=== PATIENT | female | born 1975 | race Caucasian/White ===

== ENCOUNTER 2017-06-15 22:56 | Emergency (ER) | payer MEDICARE, OTHER ==
[2017-06-15 23:06] VITALS: TEMP 98.4
--- NOTE | 2017-06-15 23:15 | ED ---
General Adult HPI - General Chief complaint: Extremity Injury, Upper Stated complaint: L arm injury Time Seen by Provider: 06/15/17 23:09 Source: patient, family, RN notes reviewed Mode of arrival: ambulatory Limitations: no limitations - History of Present Illness Initial comments: Patient is a pleasant 41-year-old female presenting to the emergency department complaining of left shoulder injury. Patient had a sub-woffer fall on her left shoulder couple of hours ago. Approximately was 25 pounds. Patient complains of discomfort of the left shoulder only. Discomfort does increase with touch and movement. No other area of injury. Patient does have occasional chronic problems of her shoulder however not like this. No difficulty breathing. No head injury. - Related Data Home Medications Medication Instructions Recorded Confirmed Cyclobenzaprine [Flexeril] 10 mg PO HS 06/15/17 06/15/17 Escitalopram [Lexapro] 10 mg PO HS 06/15/17 06/15/17 Ibuprofen [Motrin] 800 mg PO Q6H PRN 06/15/17 06/15/17 Pantoprazole Sodium [Protonix] 40 mg PO HS 06/15/17 06/15/17 buPROPion HCL [Wellbutrin XL] 300 mg PO HS 06/15/17 06/15/17 Previous Rx's Medication Instructions Recorded Cyclobenzaprine [Flexeril] 10 mg PO TID PRN #12 tablet 06/16/17 Allergies Allergy/AdvReac Type Severity Reaction Status Date / Time sulfamethoxazole Allergy Nausea & Verified 06/15/17 23:22 [From Bactrim] Vomiting trimethoprim [From Bactrim] Allergy Nausea & Verified 06/15/17 23:22 Vomiting Review of Systems ROS Statement: Those systems with pertinent positive or pertinent negative responses have been documented in the HPI. ROS Other: All systems not noted in ROS Statement are negative. Constitutional: Denies: fever Eyes: Denies: eye pain ENT: Denies: ear pain Respiratory: Denies: cough Cardiovascular: Denies: chest pain Endocrine: Denies: fatigue Gastrointestinal: Denies: abdominal pain Genitourinary: Denies: urgency Musculoskeletal: Denies: back pain Skin: Denies: rash Neurological: Denies: weakness Past Medical History Past Medical History: Seizure Disorder Additional Past Medical History / Comment(s): hx petit mal with last known seizure age 18 History of Any Multi-Drug Resistant Organisms: MRSA Date of last positivie culture/infection: 2009 MDRO Source:: forehead Past Surgical History: Appendectomy, Section, Cholecystectomy Additional Past Surgical History / Comment(s): D & C, tracheotomy as a child Past Anesthesia/Blood Transfusion Reactions: No Reported Reaction Past Psychological History: Anxiety, Depression Smoking Status: Current every day smoker Past Alcohol Use History: Occasional Past Drug Use History: None Reported General Exam Limitations: no limitations General appearance: alert, in no apparent distress Head exam: Present: atraumatic Eye exam: Present: normal appearance Neck exam: Present: normal inspection. Absent: tenderness Respiratory exam: Present: normal lung sounds bilaterally Cardiovascular Exam: Present: regular rate, normal rhythm Extremities exam: Present: tenderness (Left upper shoulder and left trapezius with tenderness.), other (Slightly limited range of active motion secondary to discomfort. Distally the extremity is neurovascular intact.) Back exam: Present: normal inspection. Absent: vertebral tenderness Neurological exam: Present: alert. Absent: motor sensory deficit Psychiatric exam: Present: normal affect, normal mood Skin exam: Present: normal color Course Vital Signs 06/15/17 23:04 Temperature 98.4 F Pulse Rate 100 Respiratory 18 Rate Blood Pressure 114/57 O2 Sat by Pulse 98 Oximetry Medical Decision Making - Medical Decision Making Patient reevaluated and resting comfortably in bed. Patient does not want any pain medicine at this time. Patient is updated on results. - Radiology Data Radiology results: image reviewed (Left shoulder x-ray shows no acute process) Disposition Clinical Impression: Shoulder contusion Disposition: HOME SELF-CARE Condition: Stable Instructions: Shoulder Sprain (ED), Shoulder Pain (ED) Additional Instructions: Please follow-up with your primary care physician in the next couple days for recheck. Also consider follow-up with orthopedics, number provided. Return for arm weakness, increased pain, worsening or changing symptoms or other concerns. [id number] Motrin as needed. Prescriptions: Cyclobenzaprine [Flexeril] 10 mg PO TID PRN #12 tablet PRN Reason: Pain Referrals: Kacey Brennan MD [Primary Care Provider] - 1-2 days Hardy Jones MD [Medical Doctor] - 1-2 days
--- NOTE | 2017-06-15 23:57 | XR ---
EXAM: XR Left Shoulder Complete, 2 or More Views CLINICAL HISTORY: Reason: Pain TECHNIQUE: Two or more views of the left shoulder. COMPARISON: No relevant prior studies available. FINDINGS: Bones/joints: Unremarkable. No acute fracture. No dislocation. Soft tissues: Unremarkable. IMPRESSION: Normal left shoulder x-rays.
[2017-06-16 00:30] VITALS: BP 129/74; PULSE 90; RESP 20
== END 2017-06-16 00:30 | disposition home or self-care (01) ==
LOC: EC 22:56
DX: S40.012A Contusion of left shoulder, initial encounter (principal); F32.9 Major depressive disorder, single episode, unspecified; F41.9 Anxiety disorder, unspecified; F17.200 Nicotine dependence, unspecified, uncomplicated; Z79.899 Other long term (current) drug therapy; Z88.1 Allergy status to other antibiotic agents; W20.8XXA Other cause of strike by thrown, projected or falling object, initial encounter; Y93.89 Activity, other specified
CPT/HCPCS: 99283

== ENCOUNTER → 2018-02-04 | Outpatient (CLI) | payer MEDICARE, OTHER ==
--- NOTE | 2018-02-04 09:26 | XR ---
EXAM TYPE: LUMBAR SPINE X RAY SERIES COMPARISON: 06/06/2016 HISTORY: Mid and lower back pain TECHNIQUE: 4 views are submitted. FINDINGS: Alignment is anatomic. The pedicles are intact. The transverse processes are intact. There is no s pondylolysis or spondylolisthesis. Facet arthropathy L5-S1. Surgical clips in the gallbladder fossa. IMPRESSION: 1. Facet arthropathy L5-S1. If symptoms persist consider MRI.
--- NOTE | 2018-02-04 09:27 | XR ---
EXAMINATION TYPE: XR thoracic spine complete DATE OF EXAM: 02/04/2018 COMPARISON: 06/06/2016 HISTORY: Pain Alignment is anatomic. There is no compression deformities. Vertebral body height and disc interspa barak are maintained. Slight curvature of the spine noted. Mild hypertrophic spurring anteriorly. IMPRESSION: 1. No acute abnormality. If symptoms persist consider MRI.
== END | disposition home or self-care (01) ==
LOC: RADXRMAIN 08:59
PROVIDERS: ATTEND Internal Medicine
DX: M46.87 Other specified inflammatory spondylopathies, lumbosacral region (principal); M54.6 Pain in thoracic spine
CPT/HCPCS: 72072; 72100

== ENCOUNTER → 2019-03-25 | Outpatient (CLI) | payer MEDICARE, OTHER ==
--- NOTE | 2019-03-25 10:24 | MM ---
Reason for exam: screening (asymptomatic). Baseline mammogram. History: Took other hormone beginning at age 20. Physical Findings: Nurse did not find any significant physical abnormalities on exam. MG 3D Screening Mammo W/Cad Bilateral CC and MLO view(s) were taken. There are scattered fibroglandular densities. There is no discrete abnormality. These results were verbally communicated with the patient and result sheet given to the patient on 03/25/19. ASSESSMENT: Negative, BI-RAD 1 RECOMMENDATION: Routine screening mammogram of both breasts in 1 year.
== END | disposition home or self-care (01) ==
LOC: RADMAMWWP 08:55
PROVIDERS: ATTEND Internal Medicine
DX: Z12.31 Encounter for screening mammogram for malignant neoplasm of breast (principal)
CPT/HCPCS: 77063; 77067

== ENCOUNTER → 2019-06-12 | Outpatient (CLI) | payer MEDICARE, OTHER ==
--- NOTE | 2019-06-12 11:37 | XR ---
EXAMINATION TYPE: XR knee complete LT DATE OF EXAM: 06/12/2019 COMPARISON: None HISTORY: Knee pain TECHNIQUE: Three-view left knee FINDINGS: No acute fractures or dislocations are evident. Some tissues are normal. No joint effusion is evident. Joint spaces are preserved. IMPRESSION: 1. Normal three-view left knee. 2. Follow-up exams can be performed 7-10 days from acute trauma for continued pain
--- NOTE | 2019-06-12 11:38 | CT ---
EXAMINATION TYPE: CT chest w con DATE OF EXAM: 06/12/2019 COMPARISON: None HISTORY: Previous abnormal exam, lung nodule CT DLP: 540.6 mGycm, Automated exposure control for dose reduction was used. CONTRAST: Performed injected with 100 mL of Isovue 300. TECHNIQUE: Axial images were obtained at 5 mm thick sections. Reconstructed images are reviewed on [employer] computer in the coronal plane. FINDINGS: Portion of the thyroid visualized is normal. No suspicious lung nodules or focal infiltrates are present. Pneumatocele is in the right upper lobe. Additional pneumatoceles left lower lobe. No enlarged mediastinal or hilar adenopathy is evident. The ascending aorta diameter at the level o f the main pulmonary artery is 2.9 cm. The main pulmonary artery diameter at the bifurcation is 2.[address] sections are obtained through the upper abdomen. There is moderate fatty infiltration the liver. Prior cholecystectomy has been performed. IMPRESSIONS: 1. No acute abnormality.
== END | disposition home or self-care (01) ==
LOC: RADCTMAIN 10:33
PROVIDERS: ATTEND Internal Medicine
DX: M25.562 Pain in left knee (principal); R91.8 Other nonspecific abnormal finding of lung field
CPT/HCPCS: 73562; 71260; Q9967

== ENCOUNTER → 2019-06-30 | Outpatient (CLI) | payer MEDICARE, OTHER ==
[~2019-06-30] MED LIST: DOBUTamine DRIP for NUC MED 500 MG in DEXTROSE/WATER 1 250ML.BAG IV ONE
--- NOTE | 2019-06-30 12:05 | ECHOS ---
STRESS ECHOCARDIOGRAM DATE OF SERVICE: 06/30/2019 INDICATIONS: Chest pain. MEDICATIONS: Flexeril, Xanax, Wellbutrin, iron, pantoprazole. BASELINE HEART RATE: 109 BASELINE BLOOD PRESSURE: 119/44 MAXIMUM HEART RATE: 151 MAXIMUM BLOOD PRESSURE: 132/47 85% MPHR: 152 100% MPHR: 179 METS: MAXIMUM STAGE REACHED: TOTAL EXERCISE TIME: CLINICAL INFORMATION: Baseline rhythm is a sinus mechanism, rate of 109, minor nonspecific ST-T wave changes. Baseline blood pressure 119/44 mmHg. Patient received an infusion of dobutamine. Peak rate 151 beats per minute which is equal to 84% maximum predicted heart rate. Peak blood pressure 132/47 mmHg. Electrocardiograph monitoring revealed rare PVCs. There was no evidence of diagnostic ischemic ST deviation. Baseline echocardiogram revealed normal wall thickening and motion. At peak infusion, there was normal wall thickening and motion with no segmental wall motion abnormality. CONCLUSION: 1. Normal electrocardiographic response to dobutamine infusion. 2. Normal stress echocardiogram with no evidence of stress induced ischemia. MMODL / IJN: [id number] /
== END | disposition home or self-care (01) ==
LOC: RADNMMAIN 09:53
PROVIDERS: ATTEND Internal Medicine
DX: R07.9 Chest pain, unspecified (principal)
CPT/HCPCS: 93351; J1250

== ENCOUNTER → 2019-06-30 | Outpatient (CLI) | payer MEDICARE, OTHER | END | disposition home or self-care (01) | LOC: CPPFTMAIN 14:54 | PROVIDERS: ATTEND Internal Medicine Critical Care Medicine | DX: J98.8 Other specified respiratory disorders (principal) | CPT/HCPCS: 94060; 94726; 94729 ==

== ENCOUNTER 2020-07-05 17:25 | Inpatient (IN) | payer MEDICARE ==
[2020-07-05] MEDS ORDERED: ONDANSETRON 4 MG/2 ML VIAL IVP STA (18:02)
[2020-07-05] MEDS ORDERED: MORPHINE SULFATE 4 MG/ML SYRINGE IV STA (18:02)
[2020-07-05] MEDS ORDERED: SODIUM CHLORIDE 0.9% 1,000 ML IV STA (18:02)
--- NOTE | 2020-07-05 18:11 | ED ---
Nausea/Vomiting/Diarrhea HPI - General Chief complaint: Nausea/Vomiting/Diarrhea Stated complaint: nausea/vomiting Time Seen by Provider: 07/05/20 17:41 Source: patient, RN notes reviewed, old records reviewed Mode of arrival: wheelchair Limitations: no limitations - History of Present Illness Initial comments: This is a 42-year-old female here for evaluation patient presents today for evaluation regards to not feeling well abdominal pain nausea vomiting persistent diarrhea weight loss. No travel history no sick contacts patient admits to decreased appetite no fevers. Symptoms are going on for a few months now. Seen by primary care earlier today and presented to the emergency department for continue follow-up evaluation MD complaint: nausea, vomiting, diarrhea, abdominal pain -: month(s) Associated Abdominal Pain: Yes Location: diffuse Radiation: none Severity: moderate Severity scale (1-10): 4 Quality: aching Consistency: constant Improves with: none Worsens with: none Associated Symptoms: loss of appetite, malaise, nausea/vomiting, weakness - Related Data Home Medications Medication Instructions Recorded Confirmed Cyclobenzaprine [Flexeril] 10 mg PO HS 06/15/17 06/15/17 Escitalopram [Lexapro] 10 mg PO HS 06/15/17 06/15/17 Ibuprofen [Motrin] 800 mg PO Q6H PRN 06/15/17 06/15/17 Pantoprazole Sodium [Protonix] 40 mg PO HS 06/15/17 06/15/17 buPROPion HCL [Wellbutrin XL] 300 mg PO HS 06/15/17 06/15/17 Previous Rx's Medication Instructions Recorded Cyclobenzaprine [Flexeril] 10 mg PO TID PRN #12 tablet 06/16/17 Allergies Allergy/AdvReac Type Severity Reaction Status Date / Time sulfamethoxazole Allergy Nausea & Verified 07/05/20 17:43 [From Bactrim] Vomiting trimethoprim [From Bactrim] Allergy Nausea & Verified 07/05/20 17:43 Vomiting Review of Systems ROS Statement: Those systems with pertinent positive or pertinent negative responses have been documented in the HPI. ROS Other: All systems not noted in ROS Statement are negative. Past Medical History Past Medical History: Seizure Disorder Additional Past Medical History / Comment(s): hx petit mal with last known seizure age 18 History of Any Multi-Drug Resistant Organisms: MRSA Date of last positivie culture/infection: 2010 MDRO Source:: forehead Past Surgical History: Appendectomy, Section, Cholecystectomy Additional Past Surgical History / Comment(s): D & C, tracheotomy as a child Past Anesthesia/Blood Transfusion Reactions: No Reported Reaction Past Psychological History: Anxiety, Depression Smoking Status: Never smoker Past Alcohol Use History: Occasional Past Drug Use History: None Reported General Exam Limitations: no limitations General appearance: alert, in no apparent distress Head exam: Present: atraumatic, normocephalic, normal inspection Eye exam: Present: normal appearance, PERRL, EOMI. Absent: scleral icterus, conjunctival injection, periorbital swelling ENT exam: Present: normal exam, mucous membranes moist Neck exam: Present: normal inspection. Absent: tenderness, meningismus, lymphadenopathy Respiratory exam: Present: normal lung sounds bilaterally. Absent: respiratory distress, wheezes, rales, rhonchi, stridor Cardiovascular Exam: Present: regular rate, normal rhythm, normal heart sounds. Absent: systolic murmur, diastolic murmur, rubs, gallop, clicks GI/Abdominal exam: Present: soft, normal bowel sounds. Absent: distended, tenderness, guarding, rebound, rigid Extremities exam: Present: normal inspection, full ROM, normal capillary refill. Absent: tenderness, pedal edema, joint swelling, calf tenderness Back exam: Present: normal inspection Neurological exam: Present: alert, oriented X3, CN II-XII intact Psychiatric exam: Present: normal affect, normal mood Skin exam: Present: warm, dry, intact, normal color. Absent: rash Course Vital Signs 07/05/20 07/05/20 07/05/20 17:41 18:27 18:30 Temperature 98.4 F Pulse Rate 114 H 99 105 H Respiratory 18 17 18 Rate Blood Pressure 100/56 112/65 O2 Sat by Pulse 98 99 100 Oximetry 07/05/20 07/05/20 18:54 19:00 Temperature Pulse Rate 103 H 101 H Respiratory 18 16 Rate Blood Pressure 114/69 114/69 O2 Sat by Pulse 100 98 Oximetry - Reevaluation(s) Reevaluation #1: 07/05/20 20:28 Medical record is reviewed Reevaluation #2: 07/05/20 20:28 Patient informed results and questions answered - Consultations Consultation #1: Spoke with Dr. Contreras agrees for admission Medical Decision Making - Medical Decision Making 44 female to admit for evaluation regarding possible cause of metastatic liver disease versus underlying causes of abdominal pain with diarrhea. Patient be admitted for further evaluation management - Lab Data Result diagrams: 07/05/20 18:19 07/05/20 18:19 Lab Results 07/05/20 07/05/20 07/05/20 Range/Units 18:19 18:19 18:19 WBC 10.8 H (3.8-10.6) k/uL RBC 4.16 (3.80-5.40) m/uL Hgb 9.2 L (11.4-16.0) gm/dL Hct 31.2 L (34.0-46.0) % MCV 75.1 L (80.0-100.0) fL MCH 22.2 L (25.0-35.0) pg MCHC 29.6 L (31.0-37.0) g/dL RDW 17.0 H (11.5-15.5) % Plt Count 530 H (150-450) k/uL Neutrophils % 81 % Lymphocytes % 13 % Monocytes % 5 % Eosinophils % 1 % Basophils % 0 % Neutrophils # 8.7 H (1.3-7.7) k/uL Lymphocytes # 1.4 (1.0-4.8) k/uL Monocytes # 0.5 (0-1.0) k/uL Eosinophils # 0.1 (0-0.7) k/uL Basophils # 0.0 (0-0.2) k/uL Hypochromasia Marked Anisocytosis Slight Microcytosis Slight PT 11.7 (9.0-12.0) sec INR 1.2 H (<1.2) APTT 23.5 (22.0-30.0) sec Sodium 138 (137-145) mmol/L Potassium 3.6 (3.5-5.1) mmol/L Chloride 102 (98-107) mmol/L Carbon Dioxide 25 (22-30) mmol/L Anion Gap 11 mmol/L BUN 8 (7-17) mg/dL Creatinine 0.69 (0.52-1.04) mg/dL Est GFR (CKD-EPI)AfAm >90 (>60 ml/min/1.73 sqM) Est GFR (CKD-EPI)NonAf >90 (>60 ml/min/1.73 sqM) Glucose 179 H (74-99) mg/dL Plasma Lactic Acid Scotty (0.7-2.0) mmol/L Calcium 9.4 (8.4-10.2) mg/dL Phosphorus 3.1 (2.5-4.5) mg/dL Magnesium 1.8 (1.6-2.3) mg/dL Total Bilirubin 0.8 (0.2-1.3) mg/dL AST 103 H (14-36) U/L ALT 17 (4-34) U/L Alkaline Phosphatase 119 (38-126) U/L Creatine Kinase 22 L (30-135) U/L Troponin I (0.000-0.034) ng/mL NT-Pro-B Natriuret Pep pg/mL Total Protein 7.9 (6.3-8.2) g/dL Albumin 4.0 (3.5-5.0) g/dL TSH 1.040 (0.465-4.680) mIU/L 07/05/20 07/05/20 07/05/20 Range/Units 18:19 18:19 18:19 WBC (3.8-10.6) k/uL RBC (3.80-5.40) m/uL Hgb (11.4-16.0) gm/dL Hct (34.0-46.0) % MCV (80.0-100.0) fL MCH (25.0-35.0) pg MCHC (31.0-37.0) g/dL RDW (11.5-15.5) % Plt Count (150-450) k/uL Neutrophils % % Lymphocytes % % Monocytes % % Eosinophils % % Basophils % % Neutrophils # (1.3-7.7) k/uL Lymphocytes # (1.0-4.8) k/uL Monocytes # (0-1.0) k/uL Eosinophils # (0-0.7) k/uL Basophils # (0-0.2) k/uL Hypochromasia Anisocytosis Microcytosis PT (9.0-12.0) sec INR (<1.2) APTT (22.0-30.0) sec Sodium (137-145) mmol/L Potassium (3.5-5.1) mmol/L Chloride (98-107) mmol/L Carbon Dioxide (22-30) mmol/L Anion Gap mmol/L BUN (7-17) mg/dL Creatinine (0.52-1.04) mg/dL Est GFR (CKD-EPI)AfAm (>60 ml/min/1.73 sqM) Est GFR (CKD-EPI)NonAf (>60 ml/min/1.73 sqM) Glucose (74-99) mg/dL Plasma Lactic Acid Scotty 2.0 (0.7-2.0) mmol/L Calcium (8.4-10.2) mg/dL Phosphorus (2.5-4.5) mg/dL Magnesium (1.6-2.3) mg/dL Total Bilirubin (0.2-1.3) mg/dL AST (14-36) U/L ALT (4-34) U/L Alkaline Phosphatase (38-126) U/L Creatine Kinase (30-135) U/L Troponin I <0.012 (0.000-0.034) ng/mL NT-Pro-B Natriuret Pep 53 pg/mL Total Protein (6.3-8.2) g/dL Albumin (3.5-5.0) g/dL TSH (0.465-4.680) mIU/L - EKG Data -: EKG Interpreted by Me (EKG is sinus tach 103 OR 174 QRS 78 QTc 470) Disposition Clinical Impression: Abdominal pain, Diarrhea, Nausea & vomiting, Weight loss Disposition: ADMITTED IP TO THIS HOSP Condition: Fair Is patient prescribed a controlled substance at d/c from ED?: No Referrals: Kacey Brennan MD [Primary Care Provider] - 1-2 days
[2020-07-05 18:30] LABS: Anisocytosis Slight; Basophils % (A) 0 %; Eosinophils # (A) 0.1 k/uL (0-0.7); Eosinophils % (A) 1 %; HCT 31.2 % (34.0-46.0); HGB 9.2 gm/dL (11.4-16.0); Hypochromasia Marked; Lymphocytes # (A) 1.4 k/uL (1.0-4.8); Lymphocytes % (A) 13 %; MCH 22.2 pg (25.0-35.0); MCHC 29.6 g/dL (31.0-37.0); MCV 75.1 fL (80.0-100.0); Mean Platelet Volume 7.3; Microcytosis Slight; Monocytes # (A) 0.5 k/uL (0-1.0); Monocytes % (A) 5 %; Neutrophils # (A) 8.7 k/uL (1.3-7.7); Neutrophils % (A) 81 %; Platelet Count 530 k/uL (150-450); RBC 4.16 m/uL (3.80-5.40); WBC 10.8 k/uL (3.8-10.6)
[2020-07-05 18:43] LABS: ALT 17 U/L (4-34); AST 103 U/L (14-36); African American GFR (CKD) >90 (>60 ml/min/1.73 sqM); Alkaline Phosphatase 119 U/L (38-126); Anion Gap 11 mmol/L; Blood Urea Nitrogen 8 mg/dL (7-17); Calcium 9.4 mg/dL (8.4-10.2); Carbon Dioxide 25 mmol/L (22-30); Chloride 102 mmol/L (98-107); Creatine Kinase 22 U/L (30-135); Glucose 179 mg/dL (74-99); Magnesium 1.8 mg/dL (1.6-2.3); Non-African American GFR(CKD) >90 (>60 ml/min/1.73 sqM); Phosphorus 3.1 mg/dL (2.5-4.5); Potassium 3.6 mmol/L (3.5-5.1); Sodium 138 mmol/L (137-145); Total Bilirubin 0.8 mg/dL (0.2-1.3); Total Protein 7.9 g/dL (6.3-8.2)
[2020-07-05 18:45] LABS: INR 1.2 (<1.2); Partial Thromboplastin Time 23.5 sec (22.0-30.0); Prothrombin Time 11.7 sec (9.0-12.0)
--- NOTE | 2020-07-05 20:07 | CT ---
EXAMINATION TYPE: CT ChestAbdPelvis w con DATE OF EXAM: 07/05/2020 COMPARISON: 06/12/2019 and 01/29/2010 HISTORY: abdominal pain, nausea, vomiting, weakness CT DLP: 1811.1 mGycm Automated exposure control for dose reduction was used. CONTRAST: Performed with IV Contrast, patient injected with 100 mL of Isovue 300. The lungs are clear of infiltrate. There is no evidence of a pulmonary mass. There is no pleural effu fallon. Heart size is normal. There is no pericardial effusion. There is no mediastinal adenopathy. The re are no hilar masses. There are scattered emphysematous bullae in the lungs. There are multiple low-density masses in the liver that measure up to 5.8 cm. These are seen anterior to the sho hepatis and anterior right lobe of the liver and also the lateral right lobe of the rain er. The bile ducts are not dilated. There are clips and cholecystectomy. Spleen and pancreas appear n ormal. Pancreatic duct appears normal. Stomach appears normal. There is no adrenal mass. Kidneys show satisfactory contrast opacification. There is no hydronephrosi s. There is no retroperitoneal adenopathy. Bladder distends smoothly. Uterus is somewhat retroverted. There is no free fluid in the pelvis. There is no evidence of a pelvic mass. There is no mesenteric edema. There is no ascites. There is no free air. Appendix is not seen. There is no sign of thickened appendix. Thoracic and lumbar vertebra have normal alignment. Disc spaces are normal. There is no compression f racture. Sternum is intact. The bony pelvis is intact. Hip joints are intact. IMPRESSION: Negative CT scan of the chest. Minimal pulmonary emphysema. Low density liver lesions. The possibility of metastatic disease should be considered. These appear n ew compared to old CT scan. Follow-up recommended. No sign of a primary malignancy. Liver lesions gelacio ear to be new compared to the chest CT scan of 06/12 19.
[2020-07-05] MEDS ORDERED: SODIUM CHLORIDE 0.9% 1,000 ML IV ONE (21:00)
--- NOTE | 2020-07-05 21:46 | US ---
EXAMINATION TYPE: US transvaginal DATE OF EXAM: 07/05/2020 COMPARISON: CT CLINICAL HISTORY: weak. Pain and weakness. Hx appendectomy, 3 C-Sections. Hx miscarriage and D and C. . TECHNIQUE: Transvaginal (TV). Date of LMP: 07/03/20. EXAM MEASUREMENTS: Uterus: 9.5 x 6.3 x 4.4 cm Endometrial Stripe: 1.18 cm. Limited. Right Ovary: 3.2 x 1.9 x 1.4 cm Left Ovary: Not visualized 1. Uterus: Anteverted Appears slightly heterogenous. Hypoechoic area seen upper right uterus measu rin.7 x 0.6 x 1.2 cm. 2. Endometrium: Limited, measured at 1.18 cm. Subcentimeter anechoic area seen in cervix. 3. Right Ovary: Subcentimeter anechoic area seen. 4. Left Ovary: Not visualized. Spectral, color and waveform doppler imaging shows arterial and venous flow within the right ovary. Left ovary not visualized. 5. Bilateral Adnexa: Appear wnl. 6. Posterior cul-de-sac: Appears wnl. IMPRESSION: No adnexal mass. No evidence of ovarian torsion. No endometrial thickening. Very small intrauterine f luid collection of uncertain significance.
[2020-07-05] MEDS ORDERED: LORazepam 2 MG/ML INJ IV STA (22:47)
[2020-07-06] MEDS ORDERED: MORPHINE SULFATE 4 MG/ML SYRINGE IVP PRN
[2020-07-06] MEDS ORDERED: LORazepam 2 MG/ML INJ IV PRN
[2020-07-06 04:59] LABS: Appearance,Urine Clear (Clear); Bacteria,Urine Occasional /hpf; Bilirubin,Urine Negative (Negative); Blood,Urine Large (Negative); Color,Urine Light Red; Glucose,Urine (UA) Negative (Negative); Ketones,Urine 1+ (Negative); Leukocyte Esterase,Urine Small (Negative); Mucus,Urine Few /hpf; Nitrite,Urine Negative (Negative); PH, Urine 6.5 (5.0-8.0); Protein,Urine 1+ (Negative); RBC,Urine >182 /hpf (0-5); Squamous Epithelial Cell,Urine 2 /hpf (0-4); WBC,Urine 42 /hpf (0-5)
[2020-07-06 05:00] LABS: Specific Gravity,Urine >1.050 (1.001-1.035)
[2020-07-06] MEDS: PANTOPRAZOLE 40 MG/10 ML VIAL IVP SCH (08:49)
--- NOTE | 2020-07-06 11:09 | P.CONS ---
History of Present Illness - Reason for Consult Consult date: 07/06/20 liver lesions Requesting physician: Kacey Brennan - Chief Complaint Nausea, vomiting - History of Present Illness Mrs. Hodge is a 44-year-old female we've been asked to see in regards to liver lesions. Patient denies any history of liver disease, hepatitis, cysts. She has a history of appendectomy and cholecystectomy, colonoscopy and EGD in the past with polyp removal. She states that nausea and vomiting started in March of this year, been persistent and progressive. She has lost about 29 pounds, attributes the weight loss more with "bad taste" then the nausea and vomiting. She denies any painful swallowing, she does have some abdominal discomfort on the left side, she has fluctuating stool consistency but states that's not new for her, denies unusual color or odor. Her mother was recently diagnosed with colon cancer. Patient is also noted to macrocytic, hypochromic anemia. Patient says she's been anemic for very long time. She stopped iron supplementation secondary to financial situation. He states that her menstruation flow is variable but mostly high. She denies any other bleeding. Patient states no personal history of cancer. No fevers, chills, recent no contacts, chest pain, difficulty breathing, dysuria, hematuria or other bleeding. Review of Systems 14 point review of systems is negative except as stated in HPI Past Medical History Past Medical History: Seizure Disorder Additional Past Medical History / Comment(s): hx nikki michael with last known seizure age 18 History of Any Multi-Drug Resistant Organisms: MRSA Year Discovered:: 2009 MDRO Source:: forehead Past Surgical History: Appendectomy, Section, Cholecystectomy Additional Past Surgical History / Comment(s): D & C, tracheotomy as a child Past Anesthesia/Blood Transfusion Reactions: No Reported Reaction Past Psychological History: Anxiety, Depression Smoking Status: Former smoker Past Alcohol Use History: Occasional Past Drug Use History: None Reported Medications and Allergies Home Medications Medication Instructions Recorded Confirmed Type No Known Home Medications 07/05/20 07/05/20 History Allergies Allergy/AdvReac Type Severity Reaction Status Date / Time sulfamethoxazole Allergy Nausea & Verified 07/05/20 22:13 [From Bactrim] Vomiting trimethoprim [From Bactrim] Allergy Nausea & Verified 07/05/20 22:13 Vomiting Physical Exam Vitals: Vital Signs Temp Pulse Pulse Resp BP BP Pulse Ox 10/01/20 09:00 90 18 07/06/20 08:48 98.1 F 90 18 112/74 96 07/06/20 05:00 98.2 F 80 18 91/61 97 07/05/20 22:50 98.7 F 98 18 102/61 97 07/05/20 22:45 98 F 96 16 107/72 96 07/05/20 19:00 101 H 16 114/69 98 07/05/20 18:54 103 H 18 114/69 100 07/05/20 18:30 105 H 18 112/65 100 07/05/20 18:27 99 17 99 07/05/20 17:41 98.4 F 114 H 18 100/56 98 Intake and Output 07/05/20 07/06/20 07/06/20 22:59 06:59 14:59 Intake Total 100 Output Total 70 Balance 30 Intake: Intake, IV Titration 100 Amount Sodium Chloride 0.9% 1, 100 000 ml @ 100 mls/hr IV . Q10H ONE Rx#:[id number] Output: Emesis 70 Other: Voiding Method Toilet Toilet Weight 94.801 kg - Constitutional General appearance: cooperative, disheveled, morbidly obese, severe distress - EENT Eyes: anicteric sclerae, EOMI, poor dentition ENT: hearing grossly normal, normal oropharynx - Neck Left axillary exam caused the patient pain, did not feel like a lymph node Neck: no lymphadenopathy - Respiratory Respiratory: bilateral: CTA, diminished (Weak inspiratory effort) - Cardiovascular Rhythm: regular Heart sounds: normal: S1, S2 Abnormal Heart Sounds: no systolic murmur, no diastolic murmur, no rub, no S3 Gallop, no S4 Gallop, no click, no other leg Peripheral Edema: bilateral: None - Gastrointestinal General gastrointestinal: no absent bowel sounds, no decreased bowel sounds, no distended, no hepatomegaly, no hyperactive bowel sounds, normal bowel sounds, no organomegaly, no rigid, no scaphoid, soft, no splenomegaly, tenderness (Left mi ddle quadrant area), no umbilical hernia, no ventral hernia - Integumentary Integumentary: normal - Neurologic Neurologic: CNII-XII intact - Musculoskeletal Musculoskeletal: generalized weakness - Psychiatric Psychiatric: A&O x's 3, appropriate affect, intact judgment & insight Results CBC & Chem 7: 09/30/20 18:19 07/05/20 18:19 Labs: Abnormal Lab Results - Last 24 Hours (Table) 07/05/20 07/05/20 07/05/20 Range/Units 18:19 18:19 18:19 WBC 10.8 H (3.8-10.6) k/uL Hgb 9.2 L (11.4-16.0) gm/dL Hct 31.2 L (34.0-46.0) % MCV 75.1 L (80.0-100.0) fL MCH 22.2 L (25.0-35.0) pg MCHC 29.6 L (31.0-37.0) g/dL RDW 17.0 H (11.5-15.5) % Plt Count 530 H (150-450) k/uL Neutrophils # 8.7 H (1.3-7.7) k/uL INR 1.2 H (<1.2) Glucose 179 H (74-99) mg/dL AST 103 H (14-36) U/L Creatine Kinase 22 L (30-135) U/L Ur Specific [place] (1.001-1.035) Urine Protein (Negative) Urine Ketones (Negative) Urine Blood (Negative) Ur Leukocyte Esterase (Negative) Urine RBC (0-5) /hpf Urine WBC (0-5) /hpf Urine Bacteria (None) /hpf Urine Mucus (None) /hpf 07/06/20 Range/Units 04:41 WBC (3.8-10.6) k/uL Hgb (11.4-16.0) gm/dL Hct (34.0-46.0) % MCV (80.0-100.0) fL MCH (25.0-35.0) pg MCHC (31.0-37.0) g/dL RDW (11.5-15.5) % Plt Count (150-450) k/uL Neutrophils # (1.3-7.7) k/uL INR (<1.2) Glucose (74-99) mg/dL AST (14-36) U/L Creatine Kinase (30-135) U/L Ur Specific [place] >1.050 H (1.001-1.035) Urine Protein 1+ H (Negative) Urine Ketones 1+ H (Negative) Urine Blood Large H (Negative) Ur Leukocyte Esterase Small H (Negative) Urine RBC >182 H (0-5) /hpf Urine WBC 42 H (0-5) /hpf Urine Bacteria Occasional H (None) /hpf Urine Mucus Few H (None) /hpf CT scan - abdomen: report reviewed CT scan - chest: report reviewed CT scan - pelvis: report reviewed Assessment and Plan (1) Nausea & vomiting Narrative/Plan: Patient has had nausea and vomiting since March, persistent, progressive. She has a history of polyps. Surgery is following with her as they have performed previous endoscopy. Antiemetics ordered as needed Current Visit: Yes Status: Acute Priority: High Code(s): R11.2 - NAUSEA WITH VOMITING, UNSPECIFIED SNOMED Code(s): 29250404 (2) Microcytic hypochromic anemia Narrative/Plan: Patient states a history of iron deficiency. Anemia workup ordered. No need for transfusion at this time with a hemoglobin of 9.2. Current Visit: Yes Status: Acute Priority: High Code(s): D50.9 - IRON DEFICIENCY ANEMIA, UNSPECIFIED SNOMED Code(s): 74904798 (3) Liver lesion Narrative/Plan: Multiple liver lesions on computed tomography scan. Largest is 5.8 cm. Elevated AST and slightly elevated INR. Consult Interventional Radiology for core biopsy the same, no other target lesions or masses on imaging Current Visit: Yes Status: Acute Priority: High Code(s): K76.9 - LIVER DISEASE, UNSPECIFIED SNOMED Code(s): 468974248 (4) Abdominal pain Narrative/Plan: Patient complains of pain in the left middle quadrant, may be intestinal in nature. Her workup is ongoing at this time. Current Visit: Yes Status: Acute Priority: High Code(s): R10.9 - UNSPECIFIED ABDOMINAL PAIN SNOMED Code(s): 13476869
[2020-07-06] MEDS: ONDANSETRON 4 MG/2 ML VIAL IVP SCH ×4 (11:23→23:16)
--- NOTE | 2020-07-06 13:08 | P.HPIM ---
History of Present Illness H&P Date: 07/06/20 Maki Hodge, is a 44-year-old female who presented to [facility] emergency room with several days history of nausea vomiting and poor oral intake, she was evaluated in the emergency room, her vital examination reveals a temperature of 98.4 pulse 114 respiration 18 blood pressure 100/56 and pulse ox 98% on room air, white blood count was 10.8 hemoglobin 9.2 platelet count 530 AST was elevated at 103, patient also had evidence of urinary tract infection, computed tomography scan of the chest abdomen and pelvis done in the emergency room, revealed evidence of low density lesions in the liver raising the possibility of metastatic disease, patient does not have any known history of cancer, she was admitted to medical floor for further evaluation patient has known history of anemia, she underwent a colonoscopy in 2013 and had evidence of one polyp that was removed, recommendation was to proceed with colonoscopy in 5 years, however patient declined repeat colonoscopy last year. Patient has history of anemia she was maintained on iron supplements, she stopped taking iron supplements and multiple other medications several months ago, due to financial reasons per patient, she reports 20-30 pounds weight loss in the last 3-4 months. She stated that her mother was recently diagnosed with colon cancer. Past Medical History Past Medical History: Seizure Disorder Additional Past Medical History / Comment(s): hx nikki michael with last known seizure age 18 History of Any Multi-Drug Resistant Organisms: MRSA Date of last positivie culture/infection: 2009 MDRO Source:: forehead Past Surgical History: Appendectomy, Section, Cholecystectomy Additional Past Surgical History / Comment(s): D & C, tracheotomy as a child Past Anesthesia/Blood Transfusion Reactions: No Reported Reaction Past Psychological History: Anxiety, Depression Smoking Status: Former smoker Past Alcohol Use History: Occasional Past Drug Use History: None Reported Medications and Allergies Home Medications Medication Instructions Recorded Confirmed Type No Known Home Medications 07/05/20 07/05/20 History Allergies Allergy/AdvReac Type Severity Reaction Status Date / Time sulfamethoxazole Allergy Nausea & Verified 07/05/20 22:13 [From Bactrim] Vomiting trimethoprim [From Bactrim] Allergy Nausea & Verified 07/05/20 22:13 Vomiting Physical Exam Vitals: Vital Signs Temp Pulse Pulse Resp BP BP Pulse Ox 07/06/20 09:00 90 18 07/06/20 08:48 98.1 F 90 18 112/74 96 07/06/20 05:00 98.2 F 80 18 91/61 97 07/05/20 22:50 98.7 F 98 18 102/61 97 07/05/20 22:45 98 F 96 16 107/72 96 07/05/20 19:00 101 H 16 114/69 98 07/05/20 18:54 103 H 18 114/69 100 07/05/20 18:30 105 H 18 112/65 100 07/05/20 18:27 99 17 99 07/05/20 17:41 98.4 F 114 H 18 100/56 98 Intake and Output 07/05/20 07/06/20 07/06/20 22:59 06:59 14:59 Intake Total 100 Output Total 70 Balance 30 Intake: Intake, IV Titration 100 Amount Sodium Chloride 0.9% 1, 100 000 ml @ 100 mls/hr IV . Q10H ONE Rx#:[id number] Output: Emesis 70 Other: Voiding Method Toilet Toilet Weight 94.801 kg In general patient is alert and oriented 3 in no apparent distress HEENT head normocephalic and atraumatic Neck is supple no JVD no goiter no lymphadenopathy Chest exam reveals a few scattered crackles no wheezing Cardiac exam reveals regular heart sounds no murmurs Abdomen is soft nontender no hepatomegaly no splenomegaly bowel sounds are normal Extremity exam reveals no edema no cyanosis or clubbing Neurological examination reveals no gross focal deficits Results CBC & Chem 7: 07/05/20 18:19 07/05/20 18:19 Labs: Abnormal Lab Results - Last 24 Hours (Table) 07/05/20 07/05/20 07/05/20 Range/Units 18:19 18:19 18:19 WBC 10.8 H (3.8-10.6) k/uL Hgb 9.2 L (11.4-16.0) gm/dL Hct 31.2 L (34.0-46.0) % MCV 75.1 L (80.0-100.0) fL MCH 22.2 L (25.0-35.0) pg MCHC 29.6 L (31.0-37.0) g/dL RDW 17.0 H (11.5-15.5) % Plt Count 530 H (150-450) k/uL Neutrophils # 8.7 H (1.3-7.7) k/uL INR 1.2 H (<1.2) Glucose 179 H (74-99) mg/dL AST 103 H (14-36) U/L Creatine Kinase 22 L (30-135) U/L Ur Specific [place] (1.001-1.035) Urine Protein (Negative) Urine Ketones (Negative) Urine Blood (Negative) Ur Leukocyte Esterase (Negative) Urine RBC (0-5) /hpf Urine WBC (0-5) /hpf Urine Bacteria (None) /hpf Urine Mucus (None) /hpf 07/06/20 Range/Units 04:41 WBC (3.8-10.6) k/uL Hgb (11.4-16.0) gm/dL Hct (34.0-46.0) % MCV (80.0-100.0) fL MCH (25.0-35.0) pg MCHC (31.0-37.0) g/dL RDW (11.5-15.5) % Plt Count (150-450) k/uL Neutrophils # (1.3-7.7) k/uL INR (<1.2) Glucose (74-99) mg/dL AST (14-36) U/L Creatine Kinase (30-135) U/L Ur Specific [place] >1.050 H (1.001-1.035) Urine Protein 1+ H (Negative) Urine Ketones 1+ H (Negative) Urine Blood Large H (Negative) Ur Leukocyte Esterase Small H (Negative) Urine RBC >182 H (0-5) /hpf Urine WBC 42 H (0-5) /hpf Urine Bacteria Occasional H (None) /hpf Urine Mucus Few H (None) /hpf Microbiology - Last 24 Hours (Table) 07/06/20 04:41 Urine Culture - Preliminary Urine,Voided Thrombosis Risk Factor Assmnt - Choose All That Apply Each Factor Represents 1 point: Age 41-60 years, Obesity (BMI >25) Thrombosis Risk Factor Assessment Total Risk Factor Score: 2 Thrombosis Risk Factor Assessment Level: Low Risk Assessment and Plan Plan: 1. Episodes of nausea and vomiting and weight loss for the last several months 2. Anemia will check iron and vitamin B12 and folate studies 3. Abnormal computed tomography scan of the liver showing hypoechoic lesions. Consultation for Dr. Ibarra was initiated for possible EGD and colonoscopy, consultation for Dr. Lewis was initiated to assess need for liver biopsy. 4. Will follow during this admission for medical management will initiate Prot cee 40 mg by mouth daily and assess oral intake 5. For DVT prophylaxis we'll use SCD stockings, avoid heparin due to possible biopsy
--- NOTE | 2020-07-06 14:52 | P.GSCN ---
<Zhanna Moses - Last Filed: 07/06/20 15:18> History of Present Illness Consult date: 07/06/20 History of present illness: CHIEF COMPLAINT: Abdominal pain with nausea and vomiting HISTORY OF PRESENT ILLNESS: This is a 44-year-old female with a known history of iron deficiency anemia, appendectomy and cholecystectomy. She presented to the emergency room with complaints of abdominal pain with nausea and vomiting over the last couple months. She's had decrease in appetite. She's noted a 29 pound weight loss. She complains of epigastric abdominal pain and left lower quadrant abdominal pain that is intermittent. Her last EGD and colonoscopy were in 2013 patient had polypectomy from the sigmoid colon. And she was also have a repeat colonoscopy in 5 years. Patient also been having some diarrhea. But reports that her fluttering stool consistency is not new for her. She denies any blood in her stools. Her mother was recently diagnosed with colon cancer. Patient had computed tomography scan of the chest abdomen and pelvis completed in the ER that did note low density liver lesions. The possibility of metastatic disease should be considered. These appear new compared to old CT scan. No sign of primary malignancy. Patient has been evaluated by oncology they've ordered an MRI of the liver and consulted interventional radiology for possible biopsy. Patient denies any fever, chills or sweats. PAST MEDICAL HISTORY: See list. PAST SURGICAL HISTORY: See list. MEDICATIONS: See list. ALLERGIES: See list. SOCIAL HISTORY: No illicit drug use. REVIEW OF SYSTEMS: CONSTITUTIONAL: Denies fever or chills. HEENT: Denies blurred vision, vision changes, or eye pain. Denies hemoptysis CARDIOVASCULAR: Denies chest pain or pressure. RESPIRATORY: No shortness of breath. GASTROINTESTINAL: See HPI for pertinent findings HEMATOLOGIC: Denies bleeding disorders. GENITOURINARY: Denies any blood in urine or increased urinary frequency. SKIN: Denies pruitis. Denies rash. PHYSICAL EXAM: VITAL SIGNS: Reviewed GENERAL: Well-developed in no acute distress. HEENT: No sclera icterus. Extraocular movements grossly intact. Moist buccal mucosa. Head is atraumatic, normocephalic. No nasal drainage. ABDOMEN: Soft. Obese. Nondistended. Tenderness with palpation of the epigastric area and left lower quadrant NEUROLOGIC: Alert and oriented. Cranial nerves II through XII grossly intact. LABORATORY DATA: WBC 10.8 hemoglobin is 9.2 platelets are 532 acid 2.0 AST 103 ALT 17 IMAGING: Computed tomography scan of the chest abdomen pelvis report states negative co mputed tomography scan of the chest. Minimal pulmonary emphysema. Low-density liver lesions. The possibility of metastatic disease should be considered. These appear new compared to old computed tomography scan. Transvaginal ultrasound no adnexal mass. No evidence of ovarian torsion. No endometrial thickening. There is small intrauterine fluid ASSESSMENT: 1. Abdominal pain with nausea and vomiting 2. Multiple liver lesions noted on computed tomography scan with elevated AST 103 3. Prior history of colonoscopy with polypectomy in 2013. Patient has not had her 5 year repeat colonoscopy 4. Microcytic hypochromic anemia with known history of iron deficiency PLAN: -Agree with oncology consults and plan of care with MRI of the liver and and then possible biopsy of liver lesions -Continue IV fluids -Continue antiemetics for nausea -Further recommendations forthcoming by surgeon Physician Recreational Specialist note has been reviewed by physician. Signing provider agrees with the documented findings, assessment, and plan of care. Past Medical History Past Medical History: Seizure Disorder Additional Past Medical History / Comment(s): hx petit mal with last known seizure age 18 History of Any Multi-Drug Resistant Organisms: MRSA Year Discovered:: 2009 MDRO Source:: forehead Past Surgical History: Appendectomy, Section, Cholecystectomy Additional Past Surgical History / Comment(s): D & C, tracheotomy as a child Past Anesthesia/Blood Transfusion Reactions: No Reported Reaction Past Psychological History: Anxiety, Depression Smoking Status: Former smoker Past Alcohol Use History: Occasional Past Drug Use History: None Reported Medications and Allergies Home Medications Medication Instructions Recorded Confirmed Type No Known Home Medications 07/05/20 07/05/20 History Allergies Allergy/AdvReac Type Severity Reaction Status Date / Time sulfamethoxazole Allergy Nausea & Verified 07/05/20 22:13 [From Bactrim] Vomiting trimethoprim [From Bactrim] Allergy Nausea & Verified 07/05/20 22:13 Vomiting Surgical - Exam Vital Signs Temp Pulse Resp BP Pulse Ox 98.4 F 114 H 18 100/56 98 07/05/20 17:41 07/05/20 17:41 07/05/20 17:41 07/05/20 17:41 07/05/20 17:41 Results - Labs 07/05/20 18:19 07/05/20 18:19 Abnormal Lab Results - Last 24 Hours (Table) 07/05/20 07/05/20 07/05/20 Range/Units 18:19 18:19 18:19 WBC 10.8 H (3.8-10.6) k/uL Hgb 9.2 L (11.4-16.0) gm/dL Hct 31.2 L (34.0-46.0) % MCV 75.1 L (80.0-100.0) fL MCH 22.2 L (25.0-35.0) pg MCHC 29.6 L (31.0-37.0) g/dL RDW 17.0 H (11.5-15.5) % Plt Count 530 H (150-450) k/uL Neutrophils # 8.7 H (1.3-7.7) k/uL INR 1.2 H (<1.2) Glucose 179 H (74-99) mg/dL AST 103 H (14-36) U/L Creatine Kinase 22 L (30-135) U/L Ur Specific [place] (1.001-1.035) Urine Protein (Negative) Urine Ketones (Negative) Urine Blood (Negative) Ur Leukocyte Esterase (Negative) Urine RBC (0-5) /hpf Urine WBC (0-5) /hpf Urine Bacteria (None) /hpf Urine Mucus (None) /hpf 07/06/20 Range/Units 04:41 WBC (3.8-10.6) k/uL Hgb (11.4-16.0) gm/dL Hct (34.0-46.0) % MCV (80.0-100.0) fL MCH (25.0-35.0) pg MCHC (31.0-37.0) g/dL RDW (11.5-15.5) % Plt Count (150-450) k/uL Neutrophils # (1.3-7.7) k/uL INR (<1.2) Glucose (74-99) mg/dL AST (14-36) U/L Creatine Kinase (30-135) U/L Ur Specific [place] >1.050 H (1.001-1.035) Urine Protein 1+ H (Negative) Urine Ketones 1+ H (Negative) Urine Blood Large H (Negative) Ur Leukocyte Esterase Small H (Negative) Urine RBC >182 H (0-5) /hpf Urine WBC 42 H (0-5) /hpf Urine Bacteria Occasional H (None) /hpf Urine Mucus Few H (None) /hpf Microbiology - Last 24 Hours (Table) 07/06/20 04:41 Urine Culture - Preliminary Urine,Voided Diabetes panel 07/05/20 Range/Units 18:19 Sodium 138 (137-145) mmol/L Potassium 3.6 (3.5-5.1) mmol/L Chloride 102 (98-107) mmol/L Carbon Dioxide 25 (22-30) mmol/L BUN 8 (7-17) mg/dL Creatinine 0.69 (0.52-1.04) mg/dL Glucose 179 H (74-99) mg/dL Calcium 9.4 (8.4-10.2) mg/dL AST 103 H (14-36) U/L ALT 17 (4-34) U/L Alkaline Phosphatase 119 (38-126) U/L Total Protein 7.9 (6.3-8.2) g/dL Albumin 4.0 (3.5-5.0) g/dL Thyroid panel 07/05/20 Range/Units 18:19 TSH 1.040 (0.465-4.680) mIU/L Calcium panel 07/05/20 Range/Units 18:19 Calcium 9.4 (8.4-10.2) mg/dL Phosphorus 3.1 (2.5-4.5) mg/dL Albumin 4.0 (3.5-5.0) g/dL Pituitary panel 07/05/20 Range/Units 18:19 Sodium 138 (137-145) mmol/L Potassium 3.6 (3.5-5.1) mmol/L Chloride 102 (98-107) mmol/L Carbon Dioxide 25 (22-30) mmol/L BUN 8 (7-17) mg/dL Creatinine 0.69 (0.52-1.04) mg/dL Glucose 179 H (74-99) mg/dL Calcium 9.4 (8.4-10.2) mg/dL TSH 1.040 (0.465-4.680) mIU/L Adrenal panel 07/05/20 Range/Units 18:19 Sodium 138 (137-145) mmol/L Potassium 3.6 (3.5-5.1) mmol/L Chloride 102 (98-107) mmol/L Carbon Dioxide 25 (22-30) mmol/L BUN 8 (7-17) mg/dL Creatinine 0.69 (0.52-1.04) mg/dL Glucose 179 H (74-99) mg/dL Calcium 9.4 (8.4-10.2) mg/dL Total Bilirubin 0.8 (0.2-1.3) mg/dL AST 103 H (14-36) U/L ALT 17 (4-34) U/L Alkaline Phosphatase 119 (38-126) U/L Total Protein 7.9 (6.3-8.2) g/dL Albumin 4.0 (3.5-5.0) g/dL <Lowell Ibarra - Last Filed: 07/06/20 20:27> History of Present Illness History of present illness: As above. Patient with intractable nausea vomiting, weight loss, mild upper abdominal pain, and CAT scan showing liver masses. MRI liver report noted. May still require liver biopsy or hepatic surgery evaluation. For now we'll proceed with upper endoscopy tomorrow. Continue anti-medics and antiacid therapy. We'll follow. Surgical - Exam Vital Signs Temp Pulse Resp BP Pulse Ox 98.4 F 114 H 18 100/56 98 07/05/20 17:41 07/05/20 17:41 07/05/20 17:41 07/05/20 17:41 07/05/20 17:41 Results - Labs 07/05/20 18:19 07/05/20 18:19 Abnormal Lab Results - Last 24 Hours (Table) 07/06/20 Range/Units 04:41 Ur Specific [place] >1.050 H (1.001-1.035) Urine Protein 1+ H (Negative) Urine Ketones 1+ H (Negative) Urine Blood Large H (Negative) Ur Leukocyte Esterase Small H (Negative) Urine RBC >182 H (0-5) /hpf Urine WBC 42 H (0-5) /hpf Urine Bacteria Occasional H (None) /hpf Urine Mucus Few H (None) /hpf Microbiology - Last 24 Hours (Table) 07/06/20 12:56 Urine Culture - Preliminary Urine,Voided 07/06/20 04:41 Urine Culture - Preliminary Urine,Voided
--- NOTE | 2020-07-06 17:52 | MR ---
EXAMINATION TYPE: MR liver wo/w con DATE OF EXAM: 07/06/2020 COMPARISON: None HISTORY: Evaluate liver lesions CONTRAST: Standard multiplanar, multisequence MRI departmental protocol utilizing 9 mL intravenous Gadavist rebecca olinium contrast. There is an irregular 3 cm area of decreased signal on the out of phase images anterior to the sho hepatis. There is a similar slightly wedge-shaped area of decreased signal that measures 4.5 cm in th e anterior right lobe of the liver and a 2.5 cm x 1.5 cm area of decreased signal superior lateral ri ght lobe of the liver.. This suggests the presence of fat These areas are relatively isointense on th e in phase images. There is no enhancement. The contrast images show normal vessels traversing the le sions without mass effect. Delayed images show no enhancement. The lesions are isointense with the li patria on the T2 sequences. Lesions have slight increased signal on the T1 images. The lung bases are clear without sign of pleural effusion. Heart size is normal. There is no pericard ial effusion. Spleen is intact. There is no evidence of pancreatic mass. Stomach is intact. There is no adrenal mass. Kidneys have normal size and contour. There is satisfactory contrast opacification. There is no hydronephrosis. There is no evidence of ascites. IMPRESSION: Multiple liver lesions as above have features of focal fatty infiltration of the liver. I do not susp ect a malignant tumor. These do not have features of hemangioma or focal nodular hyperplasia..
[2020-07-07] MEDS: ONDANSETRON 4 MG/2 ML VIAL IVP SCH ×6 (02:01→23:27)
[2020-07-07 07:03] LABS: ALT 14 U/L (4-34); AST 90 U/L (14-36); African American GFR (CKD) >90 (>60 ml/min/1.73 sqM); Alkaline Phosphatase 84 U/L (38-126); Anion Gap 4 mmol/L; Blood Urea Nitrogen 6 mg/dL (7-17); Calcium 8.4 mg/dL (8.4-10.2); Carbon Dioxide 26 mmol/L (22-30); Chloride 108 mmol/L (98-107); Glucose 104 mg/dL (74-99); Non-African American GFR(CKD) >90 (>60 ml/min/1.73 sqM); Potassium 3.5 mmol/L (3.5-5.1); Sodium 138 mmol/L (137-145); Total Bilirubin 0.6 mg/dL (0.2-1.3); Total Protein 6.3 g/dL (6.3-8.2)
[2020-07-07 07:13] LABS: Anisocytosis Slight; Basophils % (A) 0 %; Eosinophils # (A) 0.2 k/uL (0-0.7); Eosinophils % (A) 3 %; HCT 25.3 % (34.0-46.0); Hypochromasia Marked; Lymphocytes # (A) 1.8 k/uL (1.0-4.8); Lymphocytes % (A) 26 %; MCHC 28.7 g/dL (31.0-37.0); MCV 76.7 fL (80.0-100.0); Mean Platelet Volume 6.5; Microcytosis Slight; Monocytes # (A) 0.4 k/uL (0-1.0); Monocytes % (A) 6 %; Neutrophils # (A) 4.5 k/uL (1.3-7.7); Neutrophils % (A) 65 %; Platelet Count 384 k/uL (150-450); RDW 16.7 % (11.5-15.5); Reticulocyte % 2.3 % (0.5-2.0)
[2020-07-07 07:15] LABS: HGB 7.3 gm/dL (11.4-16.0)
[2020-07-07] MEDS ORDERED: LACTATED RINGERS 1,000 ML IV SCH (08:00)
[2020-07-07] MEDS: PANTOPRAZOLE 40 MG/10 ML VIAL IVP SCH (09:04)
[2020-07-07 09:41] LABS: Folate, Serum 6.1 ng/mL
[2020-07-07 09:45] LABS: % Iron Saturation 2.88 (12.00-45.00)
[2020-07-07 09:53] LABS: Ferritin 10.1 ng/mL (10.0-291.0)
[2020-07-07] MEDS ORDERED: LIDOCAINE 1% INJ 10MG/ML (20 ML MDV) ONE (14:14)
[2020-07-07] MEDS ORDERED: PROPOFOL 10 MG/ML 20 ML VIAL IV ONE (14:14)
[2020-07-07] MEDS ORDERED: IV FLUID CONTINUATION 1,000 ML IV ONE (14:24)
--- NOTE | 2020-07-07 15:14 | P.PN ---
Subjective Progress Note Date: 07/07/20 Maki Hodge, is a 44-year-old female who presented to [facility] emergency room with several days history of nausea vomiting and poor oral intake, she was evaluated in the emergency room, her vital examination reveals a temperature of 98.4 pulse 114 respiration 18 blood pressure 100/56 and pulse ox 98% on room air, white blood count was 10.8 hemoglobin 9.2 platelet count 530 AST was elevated at 103, patient also had evidence of urinary tract infection, computed tomography scan of the chest abdomen and pelvis done in the emergency room, revealed evidence of low density lesions in the liver raising the possibility of metastatic disease, patient does not have any known history of cancer, she was admitted to medical floor for further evaluation patient has known history of anemia, she underwent a colonoscopy in 2013 and had evidence of one polyp that was removed, recommendation was to proceed with colonoscopy in 5 years, however patient declined repeat colonoscopy last year. Patient has history of anemia she was maintained on iron supplements, she stopped taking iron supplements and multiple other medications several months ago, due to financial reasons per patient, she reports 20-30 pounds weight loss in the last 3-4 months. She stated that her mother was recently diagnosed with colon cancer. On 07/07/2020 patient was seen and examined on the medical floor she is alert and oriented 3 in no apparent distress hemoglobin is down to 7.3 patient is scheduled for EGD by Dr. allan today otherwise patient is still complaining of nausea and poor oral intake there is no fever or chills no headache or dizziness no chest pain no shortness of breath no cough no vomiting no abdominal pain no diarrhea and no urinary symptoms Objective - Vital Signs Vital signs: Vital Signs Temp 98 F 07/07/20 08:07 Pulse 87 07/07/20 08:07 Resp 16 07/07/20 08:07 BP 100/68 07/07/20 08:07 Pulse Ox 95 07/07/20 08:07 Intake & Output 07/06/20 07/07/20 07/07/20 18:59 06:59 18:59 Intake Total 100 50 Output Total 250 Balance 100 -200 Intake: Oral 100 50 Output: Urine 200 Emesis 50 Other: Voiding Method Toilet Toilet # Voids 3 0 # Emeses 2 - Exam In general patient is alert and oriented 3 in no apparent distress HEENT head normocephalic and atraumatic Neck is supple no JVD no goiter no lymphadenopathy Chest exam reveals a few scattered crackles no wheezing Cardiac exam reveals regular heart sounds no murmurs Abdomen is soft nontender no hepatomegaly no splenomegaly bowel sounds are normal Extremity exam reveals no edema no cyanosis or clubbing Neurological examination reveals no gross focal deficits - Labs CBC & Chem 7: 07/07/20 06:17 07/07/20 06:17 Labs: Abnormal Lab Results - Last 24 Hours (Table) 07/07/20 07/07/20 Range/Units 06:17 06:17 RBC 3.30 L (3.80-5.40) m/uL Hgb 7.3 L D (11.4-16.0) gm/dL Hct 25.3 L (34.0-46.0) % MCV 76.7 L (80.0-100.0) fL MCH 22.0 L (25.0-35.0) pg MCHC 28.7 L (31.0-37.0) g/dL RDW 16.7 H (11.5-15.5) % Retic Count 2.3 H (0.5-2.0) % Chloride 108 H (98-107) mmol/L BUN 6 L (7-17) mg/dL Glucose 104 H (74-99) mg/dL AST 90 H (14-36) U/L Albumin 3.0 L (3.5-5.0) g/dL Microbiology - Last 24 Hours (Table) 07/06/20 12:56 Urine Culture - Preliminary Urine,Voided 07/06/20 04:41 Urine Culture - Preliminary Urine,Voided Assessment and Plan Plan: 1. Episodes of nausea and vomiting and weight loss for the last several months 2. Anemia will check iron and vitamin B12 and folate studies 3. Abnormal computed tomography scan of the liver showing hypoechoic lesions. Consultation for Dr. Ibarra was initiated for possible EGD and colonoscopy, consultation for Dr. Lewis was initiated to assess need for liver biopsy. 4. Will follow during this admission for medical management will initiate Protonix 40 mg by mouth daily and assess oral intake 5. For DVT prophylaxis we'll use SCD stockings, avoid heparin due to possible biopsy
[2020-07-07] MEDS: SODIUM CHLORIDE 0.9% 1,000 ML IV SCH (15:29)
--- NOTE | 2020-07-07 15:43 | P.PCN ---
Date of Procedure: 07/07/20 Procedure(s) Performed: Preoperative Dx: Intractable vomiting, weight loss, epigastric pain Postoperative Dx: Gastritis, distal esophagitis Procedure: EGD with Bx Anesthesia: Sedation Endoscopist: Dr. Ibarra Specimens: Antrum, GE junction Endoscopic Procedure: The patient was on the endoscopy table in the left decubitus position. The Olympus gastroscope was inserted into the oropharynx and passed under direct visualization to the region of the third portion of the duodenum. From that point the scope was slowly withdrawn inspecting all surfaces carefully. There were no neoplastic inflammatory or polypoid lesions throughout the duodenum. The pylorus was widely patent. The stomach was carefully inspected. There was mild to moderate gastritis present. A biopsy of the antrum took place to rule out H. pylori. Retroflexion revealed a normal hiatus. The esophagus was then carefully examined. There were inflammatory changes circumferentially just at and just above the Z line. Length of inflammatory changes less than 1 cm. Biopsies of the GE junction took place. No nodularity or atypical tissues to suggest malignancy. The remainder the esophagus appeared normal. were no neoplastic inflammatory or polypoid lesions throughout the visualized esophagus. The patient was then taken to the recovery room in stable condition per anesthesia guidelines. Recommendations: Increase antiacid therapy. Add Carafate. Spoke with Dr. Escobar. We'll proceed with colonoscopy Friday.
[2020-07-07] MEDS: SUCRALFATE 1 GM TAB PO SCH (16:56)
--- NOTE | 2020-07-07 17:41 | P.PN ---
Subjective Progress Note Date: 07/07/20 Principal diagnosis: New Liver Lesions MRI was reviewed and felt to be fatty, non-malignant lesions. Hemangioma protocol did not identify lesions as hemangiomas. Her hemoglobin is 7.3 today. Her iron studies do represent evidence of Iron deficiency anemia. Undergoing EGD today. Objective - Vital Signs Vital signs: Vital Signs Temp 98 F 07/07/20 08:07 Pulse 87 07/07/20 08:07 Resp 16 07/07/20 09:00 BP 100/68 07/07/20 08:07 Pulse Ox 95 07/07/20 08:07 Intake & Output 07/06/20 07/07/20 07/07/20 18:59 06:59 18:59 Intake Total 100 50 Output Total 250 75 Balance 100 -200 -75 Intake: Oral 100 50 Output: Urine 200 75 Emesis 50 Other: Voiding Method Toilet Toilet Toilet # Voids 3 0 # Emeses 2 - Exam - Constitutional General appearance: cooperative, disheveled, morbidly obese, severe distress - EENT Eyes: anicteric sclerae, EOMI, poor dentition ENT: hearing grossly normal, normal oropharynx - Neck Left axillary exam caused the patient pain, did not feel like a lymph node Neck: no lymphadenopathy - Respiratory Respiratory: bilateral: CTA, diminished (Weak inspiratory effort) - Cardiovascular Rhythm: regular Heart sounds: normal: S1, S2 Abnormal Heart Sounds: no systolic murmur, no diastolic murmur, no rub, no S3 Gallop, no S4 Gallop, no click, no other leg Peripheral Edema: bilateral: None - Gastrointestinal General gastrointestinal: no absent bowel sounds, no decreased bowel sounds, no distended, no hepatomegaly, no hyperactive bowel sounds, normal bowel sounds, no organomegaly, no rigid, no scaphoid, soft, no splenomegaly, tenderness (Left middle quadrant area), no umbilical hernia, no ventral hernia - Integumentary Integumentary: normal - Neurologic Neurologic: CNII-XII intact - Musculoskeletal Musculoskeletal: generalized weakness - Psychiatric Psychiatric: A&O x's 3, appropriate affect, intact judgment & insight - Labs CBC & Chem 7: 07/07/20 06:17 07/07/20 06:17 Labs: Abnormal Lab Results - Last 24 Hours (Table) 07/07/20 07/07/20 07/07/20 Range/Units 06:17 06:17 06:17 RBC 3.30 L (3.80-5.40) m/uL Hgb 7.3 L D (11.4-16.0) gm/dL Hct 25.3 L (34.0-46.0) % MCV 76.7 L (80.0-100.0) fL MCH 22.0 L (25.0-35.0) pg MCHC 28.7 L (31.0-37.0) g/dL RDW 16.7 H (11.5-15.5) % Retic Count 2.3 H (0.5-2.0) % Chloride 108 H (98-107) mmol/L BUN 6 L (7-17) mg/dL Glucose 104 H (74-99) mg/dL Iron 9 L (50-170) ug/dL % Saturation 2.88 L (12.00-45.00) AST 90 H (14-36) U/L Albumin 3.0 L (3.5-5.0) g/dL Microbiology - Last 24 Hours (Table) 07/06/20 04:41 Urine Culture - Preliminary Urine,Voided Gram Neg Bacilli 07/06/20 12:56 Urine Culture - Preliminary Urine,Voided Assessment and Plan Plan: CT scan - abdomen: report reviewed CT scan - chest: report reviewed CT scan - pelvis: report reviewed Assessment and Plan: New Findings of Liver Lesions: - Multiple liver lesions on computed tomography scan. Largest is 5.8 cm. - Elevated AST - MRI of the liver performed and felt lesions consistent with fatty lesions, not likely malignant findings Microcytic Anrmia: - Chronic history of Iron Deficiency, Likely from heavy menses. - GI work-up to assess for other (Mother recently diagnosed with Colon Cancer) - Iron deficiency anemia is noted in anemia work-up, hold off on Parental Iron secondary to positive UTI - Can follow-up in office once infection is resolved for parental iron - Hemoglobin 7.3 today (drop from 9.3) UTI - Positive Culture Gram Negative Bacilli: - IV antibiotics per primary team - May be connected with symptoms of intermittent nausea, vomiting and lower abdominal pain. ALthough Lieft middle quandrant tenderness can not be explained with this finding. Plan: - Continue with GI work-up - Plan for Iron replacement PO at this time and will assess for Parental after resolved infection - Liver Lesions fatty infiltrates per MRI. Repeat MRI in 6-12 months or per GI recommendations
[2020-07-08] MEDS: ONDANSETRON 4 MG/2 ML VIAL IVP SCH ×5 (03:09→20:39)
[2020-07-08 07:48] LABS: Anisocytosis Slight; Basophils % (A) 0 %; Eosinophils # (A) 0.1 k/uL (0-0.7); Eosinophils % (A) 2 %; HCT 25.3 % (34.0-46.0); HGB 7.4 gm/dL (11.4-16.0); Hypochromasia Marked; Lymphocytes # (A) 1.7 k/uL (1.0-4.8); Lymphocytes % (A) 27 %; MCH 22.3 pg (25.0-35.0); MCHC 29.3 g/dL (31.0-37.0); Mean Platelet Volume 7.5; Microcytosis Slight; Monocytes # (A) 0.4 k/uL (0-1.0); Monocytes % (A) 6 %; Neutrophils % (A) 64 %; Platelet Count 361 k/uL (150-450); RBC 3.33 m/uL (3.80-5.40); RDW 16.8 % (11.5-15.5); WBC 6.2 k/uL (3.8-10.6)
[2020-07-08 08:02] LABS: ALT 13 U/L (4-34); AST 67 U/L (14-36); African American GFR (CKD) >90 (>60 ml/min/1.73 sqM); Alkaline Phosphatase 82 U/L (38-126); Anion Gap 4 mmol/L; Blood Urea Nitrogen 3 mg/dL (7-17); Calcium 8.3 mg/dL (8.4-10.2); Carbon Dioxide 27 mmol/L (22-30); Chloride 107 mmol/L (98-107); Glucose 117 mg/dL (74-99); Non-African American GFR(CKD) >90 (>60 ml/min/1.73 sqM); Potassium 3.6 mmol/L (3.5-5.1); Sodium 138 mmol/L (137-145); Total Bilirubin 0.6 mg/dL (0.2-1.3); Total Protein 6.2 g/dL (6.3-8.2)
[2020-07-08] MEDS: PANTOPRAZOLE 40 MG/10 ML VIAL IVP SCH (09:22)
[2020-07-08] MEDS: SODIUM CHLORIDE 0.9% 1,000 ML IV SCH (09:24)
--- NOTE | 2020-07-08 09:24 | P.PN ---
Progress Note - Text Progress Note Date: 07/08/20 The patient has complaints of nausea. She throughout her clear liquid tray this morning. On exam vital signs are stable. Abdomen is soft. There is some mild epigastric tenderness. Acute chronic nausea. Patient is apparently scheduled for bowel prep tomorrow. This will be held if her nausea does not improve.
--- NOTE | 2020-07-08 12:04 | P.PN ---
Subjective Progress Note Date: 07/08/20 Maki Hodge, is a 44-year-old female who presented to [facility] emergency room with several days history of nausea vomiting and poor oral intake, she was evaluated in the emergency room, her vital examination reveals a temperature of 98.4 pulse 114 respiration 18 blood pressure 100/56 and pulse ox 98% on room air, white blood count was 10.8 hemoglobin 9.2 platelet count 530 AST was elevated at 103, patient also had evidence of urinary tract infection, computed tomography scan of the chest abdomen and pelvis done in the emergency room, revealed evidence of low density lesions in the liver raising the possibility of metastatic disease, patient does not have any known history of cancer, she was admitted to medical floor for further evaluation patient has known history of anemia, she underwent a colonoscopy in 2013 and had evidence of one polyp that was removed, recommendation was to proceed with colonoscopy in 5 years, however patient declined repeat colonoscopy last year. Patient has history of anemia she was maintained on iron supplements, she stopped taking iron supplements and multiple other medications several months ago, due to financial reasons per patient, she reports 20-30 pounds weight loss in the last 3-4 months. She stated that her mother was recently diagnosed with colon cancer. On 07/07/2020 patient was seen and examined on the medical floor she is alert and oriented 3 in no apparent distress hemoglobin is down to 7.3 patient is scheduled for EGD by Dr. allan today otherwise patient is still complaining of nausea and poor oral intake there is no fever or chills no headache or dizziness no chest pain no shortness of breath no cough no vomiting no abdominal pain no diarrhea and no urinary symptoms. On 07/08/2020 patient was seen and examined on the medical floor she is alert and oriented 3 she is still complaining of nausea or vomiting and abdominal discomfort hemoglobin is stable at 7.4 patient underwent EGD yesterday results noted and case was discussed with Dr. Ibarra, at this time continue with symptomatic management and proceed with colonoscopy on Friday. Objective - Vital Signs Vital signs: Vital Signs Temp 98.6 F 07/08/20 08:30 Pulse 81 07/08/20 08:30 Resp 16 07/08/20 08:30 BP 100/66 07/08/20 08:30 Pulse Ox 95 07/08/20 08:30 Intake & Output 1007/08/20 07/08/20 18:59 06:59 18:59 Intake Total 250 200 150 Output Total 75 325 50 Balance 175 -125 100 Intake: IV 250 150 Sodium Chloride 0.9% 1, 100 150 000 ml @ 50 mls/hr IV . Q20H [facility] Rx#:[id number] cefTRIAXone 1 gm In 50 Sodium Chloride 0.9% 50 ml @ 100 mls/hr IVPB Q24HR [facility] Rx#:[id number] Oral 200 Output: Urine 75 275 Urine/Stool Mix 50 Emesis 50 Other: Voiding Method Toilet Toilet Toilet # Voids 1 1 # Emeses 1 - Exam In general patient is alert and oriented 3 in no apparent distress HEENT head normocephalic and atraumatic Neck is supple no JVD no goiter no lymphadenopathy Chest exam reveals a few scattered crackles no wheezing Cardiac exam reveals regular heart sounds no murmurs Abdomen is soft nontender no hepatomegaly no splenomegaly bowel sounds are normal Extremity exam reveals no edema no cyanosis or clubbing Neurological examination reveals no gross focal deficits - Labs CBC & Chem 7: 07/08/20 07:26 07/08/20 07:26 Labs: Abnormal Lab Results - Last 24 Hours (Table) 07/08/20 07/08/20 Range/Units 07:26 07:26 RBC 3.33 L (3.80-5.40) m/uL Hgb 7.4 L (11.4-16.0) gm/dL Hct 25.3 L (34.0-46.0) % MCV 76.0 L (80.0-100.0) fL MCH 22.3 L (25.0-35.0) pg MCHC 29.3 L (31.0-37.0) g/dL RDW 16.8 H (11.5-15.5) % BUN 3 L (7-17) mg/dL Glucose 117 H (74-99) mg/dL Calcium 8.3 L (8.4-10.2) mg/dL AST 67 H (14-36) U/L Total Protein 6.2 L (6.3-8.2) g/dL Albumin 3.0 L (3.5-5.0) g/dL Microbiology - Last 24 Hours (Table) 07/06/20 04:41 Urine Culture - Final Urine,Voided Escherichia coli 07/06/20 12:56 Urine Culture - Preliminary Urine,Voided Gram Neg Bacilli Assessment and Plan Plan: 1. Episodes of nausea and vomiting and weight loss for the last several months 2. Anemia will check iron and vitamin B12 and folate studies 3. Abnormal computed tomography scan of the liver showing hypoechoic lesions. Consultation for Dr. Ibarra was initiated for possible EGD and colonoscopy, consultation for Dr. Lewis was initiated to assess need for liver biopsy. 4. Will follow during this admission for medical management will initiate Protonix 40 mg by mouth daily and assess oral intake 5. For DVT prophylaxis we'll use SCD stockings, avoid heparin due to possible biopsy
[2020-07-08] MEDS: METOCLOPRAMIDE 5 MG/ML 2 ML VIAL IVP SCH ×2 (13:07→18:12)
[2020-07-08] MEDS: SUCRALFATE 1 GM TAB PO SCH ×3 (13:38→18:12)
[2020-07-09] MEDS: METOCLOPRAMIDE 5 MG/ML 2 ML VIAL IVP SCH ×4 (00:34→18:40)
[2020-07-09] MEDS: ONDANSETRON 4 MG/2 ML VIAL IVP SCH ×6 (01:50→20:49)
[2020-07-09] MEDS: SODIUM CHLORIDE 0.9% 1,000 ML IV SCH ×2 (06:32→21:41)
[2020-07-09] MEDS: SUCRALFATE 1 GM TAB PO SCH ×3 (06:32→17:31)
[2020-07-09] MEDS: PANTOPRAZOLE 40 MG/10 ML VIAL IVP SCH (08:41)
--- NOTE | 2020-07-09 09:34 | P.PN ---
Progress Note - Text Progress Note Date: 07/09/20 The patient's comments and nausea. She is scheduled for colonoscopy tomorrow. On exam vital signs are stable. Abdomen soft. Patient will attempt her bowel prep. If she has significant nausea and emesis. Her colonoscopy will be rescheduled.
--- NOTE | 2020-07-09 10:49 | P.PN ---
Subjective Progress Note Date: 07/09/20 Maki Hodge, is a 44-year-old female who presented to [facility] emergency room with several days history of nausea vomiting and poor oral intake, she was evaluated in the emergency room, her vital examination reveals a temperature of 98.4 pulse 114 respiration 18 blood pressure 100/56 and pulse ox 98% on room air, white blood count was 10.8 hemoglobin 9.2 platelet count 530 AST was elevated at 103, patient also had evidence of urinary tract infection, computed tomography scan of the chest abdomen and pelvis done in the emergency room, revealed evidence of low density lesions in the liver raising the possibility of metastatic disease, patient does not have any known history of cancer, she was admitted to medical floor for further evaluation patient has known history of anemia, she underwent a colonoscopy in 2013 and had evidence of one polyp that was removed, recommendation was to proceed with colonoscopy in 5 years, however patient declined repeat colonoscopy last year. Patient has history of anemia she was maintained on iron supplements, she stopped taking iron supplements and multiple other medications several months ago, due to financial reasons per patient, she reports 20-30 pounds weight loss in the last 3-4 months. She stated that her mother was recently diagnosed with colon cancer. On 07/07/2020 patient was seen and examined on the medical floor she is alert and oriented 3 in no apparent distress hemoglobin is down to 7.3 patient is scheduled for EGD by Dr. allan today otherwise patient is still complaining of nausea and poor oral intake there is no fever or chills no headache or dizziness no chest pain no shortness of breath no cough no vomiting no abdominal pain no diarrhea and no urinary symptoms. On 07/08/2020 patient was seen and examined on the medical floor she is alert and oriented 3 she is still complaining of nausea or vomiting and abdominal discomfort hemoglobin is stable at 7.4 patient underwent EGD yesterday results noted and case was discussed with Dr. Ibarra, at this time continue with symptomatic management and proceed with colonoscopy on Friday. On 07/09/2020 patient is alert and oriented 3 resting complained bed. Patient still having nausea throughout the night. Hemoglobin 7.4. Per surgery patient will attempt bowel prep for colonoscopy tomorrow. Patient remains on Rocephin for UTI. Patient denies chest pain or shortness of breath. Patient denies any urinary burning or frequency Objective - Vital Signs Vital signs: Vital Signs Temp 98.5 F 07/09/20 08:06 Pulse 99 07/09/20 08:06 Resp 16 07/09/20 09:00 BP 107/73 07/09/20 08:06 Pulse Ox 95 07/09/20 08:06 Intake & Output 07/08/20 07/09/20 07/09/20 18:59 06:59 18:59 Intake Total 650 Output Total 50 275 Balance 600 -275 Intake: IV 550 Sodium Chloride 0.9% 1, 550 000 ml @ 50 mls/hr IV . Q20H [facility] Rx#:[id number] Oral 100 Output: Urine 275 Urine/Stool Mix 50 Other: Voiding Method Toilet Toilet Toilet # Voids 2 1 - Exam In general patient is alert and oriented 3 in no apparent distress HEENT head normocephalic and atraumatic Neck is supple no JVD no goiter no lymphadenopathy Chest exam reveals a few scattered crackles no wheezing Cardiac exam reveals regular heart sounds no murmurs Abdomen is soft nontender no hepatomegaly no splenomegaly bowel sounds are normal Extremity exam reveals no edema no cyanosis or clubbing Neurological examination reveals no gross focal deficits - Labs CBC & Chem 7: 07/08/20 07:26 07/08/20 07:26 Labs: Microbiology - Last 24 Hours (Table) 07/06/20 12:56 Urine Culture - Final Urine,Voided Escherichia coli 07/06/20 04:41 Urine Culture - Final Urine,Voided Escherichia coli Assessment and Plan Assessment: 1. Episodes of nausea and vomiting and weight loss for the last several months. On 07/07/2020 status post EGD showing gastritis and distal esophagitis. Plans for possible colonoscopy tomorrow 07/10/2020 2. Iron deficiency Anemia patient to undergo possible colonoscopy tomorrow if able to tolerate colon prep.Hematology services are following 3. Abnormal computed tomography scan of the liver showing hypoechoic lesions. Liver MRI completed showing multiple liver lesions as above have features of focal fatty infiltration of the liver I do not suspect a malignant tumor. Oncology services are following. Per hematologyLiver lesions fatty infiltrates per MRI. Repeat MRI in 6-12 months 4. Will follow during this admission for medical management will initiate Protonix 40 mg by mouth daily and assess oral intake 5. Urinary tract infection. Urine culture showing E. coli. Patient currently on Rocephin 6. For DVT prophylaxis we'll use SCD stockings, avoid heparin due to possible biopsy I performed an examination of the patient and discussed their management with the Nurse Practitioner. I have reviewed the Nurse Practitioner's notes and agree with the documented findings and plan of care
[2020-07-09] MEDS ORDERED: PEG 3350-NA SULF,BICARB,CL/KCL 4,000 ML BOTTLE PO ONE (12:00)
[2020-07-10] MEDS: METOCLOPRAMIDE 5 MG/ML 2 ML VIAL IVP SCH ×4 (00:45→19:39)
[2020-07-10] MEDS: ONDANSETRON 4 MG/2 ML VIAL IVP SCH ×6 (00:45→21:45)
[2020-07-10] MEDS: SUCRALFATE 1 GM TAB PO SCH ×3 (07:57→19:39)
[2020-07-10 08:33] LABS: Anisocytosis Slight; Basophils % (A) 0 %; Eosinophils # (A) 0.1 k/uL (0-0.7); Eosinophils % (A) 1 %; HCT 25.4 % (34.0-46.0); HGB 7.4 gm/dL (11.4-16.0); Hypochromasia Marked; Lymphocytes # (A) 1.5 k/uL (1.0-4.8); Lymphocytes % (A) 21 %; MCHC 28.9 g/dL (31.0-37.0); MCV 76.1 fL (80.0-100.0); Mean Platelet Volume 6.5; Microcytosis Slight; Monocytes # (A) 0.4 k/uL (0-1.0); Monocytes % (A) 5 %; Neutrophils # (A) 5.2 k/uL (1.3-7.7); Neutrophils % (A) 72 %; Platelet Count 367 k/uL (150-450); RBC 3.34 m/uL (3.80-5.40); RDW 16.3 % (11.5-15.5); WBC 7.3 k/uL (3.8-10.6)
[2020-07-10 08:38] LABS: ALT 12 U/L (4-34); AST 56 U/L (14-36); African American GFR (CKD) >90 (>60 ml/min/1.73 sqM); Alkaline Phosphatase 84 U/L (38-126); Anion Gap 9 mmol/L; Blood Urea Nitrogen <2 mg/dL (7-17); Calcium 8.3 mg/dL (8.4-10.2); Carbon Dioxide 23 mmol/L (22-30); Chloride 106 mmol/L (98-107); Glucose 105 mg/dL (74-99); Non-African American GFR(CKD) >90 (>60 ml/min/1.73 sqM); Potassium 3.5 mmol/L (3.5-5.1); Sodium 138 mmol/L (137-145); Total Bilirubin 0.6 mg/dL (0.2-1.3); Total Protein 6.2 g/dL (6.3-8.2)
[2020-07-10] MEDS: PANTOPRAZOLE 40 MG/10 ML VIAL IVP SCH (09:15)
[2020-07-10] MEDS ORDERED: LIDOCAINE 1% INJ 10MG/ML (20 ML MDV) ONE (14:55)
[2020-07-10] MEDS ORDERED: IV FLUID CONTINUATION 1,000 ML IV ONE (14:55)
[2020-07-10] MEDS ORDERED: PROPOFOL 10 MG/ML 20 ML VIAL IV ONE (14:55)
--- NOTE | 2020-07-10 15:13 | P.PCN ---
Date of Procedure: 07/10/20 Procedure(s) Performed: PREOPERATIVE DIAGNOSIS: Change in bowel habits, weight loss POSTOPERATIVE DIAGNOSIS: Normal exam PROCEDURE: Colonoscopy ANESTHESIA: MAC SURGEON: Lowell Ibarra M.D. SPECIMENS: None ENDOSCOPIC PROCEDURE: The patient was placed on the endoscopy table in the left decubitus position. The Olympus colonoscope was inserted into the anus and passed under direct visualization to the base of the cecum. The appendiceal orifice was visualized. From that point the scope was slowly withdrawn inspecting all surfaces carefully. There were no neoplastic inflammatory or polypoid lesions throughout the cecum, ascending, transverse, descending, sigmoid and rectum. There was no visible diverticulosis noted. Digital rectal examination was normal. The patient was taken to the recovery room in stable condition per anesthesia guidelines. RECOMMENDATIONS: Resume diet.
--- NOTE | 2020-07-10 18:50 | P.PN ---
Subjective Progress Note Date: 07/10/20 Maki Hodge, is a 44-year-old female who presented to [facility] emergency room with several days history of nausea vomiting and poor oral intake, she was evaluated in the emergency room, her vital examination reveals a temperature of 98.4 pulse 114 respiration 18 blood pressure 100/56 and pulse ox 98% on room air, white blood count was 10.8 hemoglobin 9.2 platelet count 530 AST was elevated at 103, patient also had evidence of urinary tract infection, computed tomography scan of the chest abdomen and pelvis done in the emergency room, revealed evidence of low density lesions in the liver raising the possibility of metastatic disease, patient does not have any known history of cancer, she was admitted to medical floor for further evaluation patient has known history of anemia, she underwent a colonoscopy in 2013 and had evidence of one polyp that was removed, recommendation was to proceed with colonoscopy in 5 years, however patient declined repeat colonoscopy last year. Patient has history of anemia she was maintained on iron supplements, she stopped taking iron supplements and multiple other medications several months ago, due to financial reasons per patient, she reports 20-30 pounds weight loss in the last 3-4 months. She stated that her mother was recently diagnosed with colon cancer. On 07/07/2020 patient was seen and examined on the medical floor she is alert and oriented 3 in no apparent distress hemoglobin is down to 7.3 patient is scheduled for EGD by Dr. Costello today otherwise patient is still complaining of nausea and poor oral intake there is no fever or chills no headache or dizziness no chest pain no shortness of breath no cough no vomiting no abdominal pain no diarrhea and no urinary symptoms. On 07/08/2020 patient was seen and examined on the medical floor she is alert and oriented 3 she is still complaining of nausea or vomiting and abdominal discomfort hemoglobin is stable at 7.4 patient underwent EGD yesterday results noted and case was discussed with Dr. Ibarra, at this time continue with symptomatic management and proceed with colonoscopy on Friday. On 07/09/2020 patient is alert and oriented 3 resting complained bed. Patient still having nausea throughout the night. Hemoglobin 7.4. Per surgery patient will attempt bowel prep for colonoscopy tomorrow. Patient remains on Rocephin for UTI. Patient denies chest pain or shortness of breath. Patient denies any urinary burning or frequency On 07/10/2020 patient was seen and examined on the medical floor she is alert and oriented 3 in no apparent distress she is still complaining of nausea and vomiting otherwise she denies any complaints she had a colonoscopy today which failed to reveal any evidence of polyps inflammation or cancer at this time will advance diet as tolerated, laboratory data is significant for anemia and evidence of iron deficiency, she is unable to tolerate oral iron, will give 1 dose of IV iron today and monitor, possible discharge to home tomorrow Objective - Vital Signs Vital signs: Vital Signs Temp 98.1 F 07/10/20 15:00 Pulse 95 07/10/20 15:00 Resp 16 07/10/20 15:00 BP 103/71 07/10/20 15:00 Pulse Ox 100 07/10/20 15:00 Intake & Output 07/09/20 07/10/20 07/10/20 18:59 06:59 18:59 Intake Total 450 300 Balance 450 300 Intake: IV 450 300 Sodium Chloride 0.9% 1, 400 200 000 ml @ 50 mls/hr IV . Q20H [facility] Rx#:[id number] cefTRIAXone 1 gm In 50 Sodium Chloride 0.9% 50 ml @ 100 mls/hr IVPB Q24HR [facility] Rx#:[id number] Other: Voiding Method Toilet Toilet Toilet # Voids 1 # Bowel Movements 4 4 2 - Exam In general patient is alert and oriented 3 in no apparent distress HEENT head normocephalic and atraumatic Neck is supple no JVD no goiter no lymphadenopathy Chest exam reveals a few scattered crackles no wheezing Cardiac exam reveals regular heart sounds no murmurs Abdomen is soft nontender no hepatomegaly no splenomegaly bowel sounds are normal Extremity exam reveals no edema no cyanosis or clubbing Neurological examination reveals no gross focal deficits - Labs CBC & Chem 7: 07/10/20 07:48 07/10/20 07:48 Labs: Abnormal Lab Results - Last 24 Hours (Table) 07/10/20 07/10/20 Range/Units 07:48 07:48 RBC 3.34 L (3.80-5.40) m/uL Hgb 7.4 L (11.4-16.0) gm/dL Hct 25.4 L (34.0-46.0) % MCV 76.1 L (80.0-100.0) fL MCH 22.0 L (25.0-35.0) pg MCHC 28.9 L (31.0-37.0) g/dL RDW 16.3 H (11.5-15.5) % BUN <2 L (7-17) mg/dL Glucose 105 H (74-99) mg/dL Calcium 8.3 L (8.4-10.2) mg/dL AST 56 H (14-36) U/L Total Protein 6.2 L (6.3-8.2) g/dL Albumin 3.0 L (3.5-5.0) g/dL Assessment and Plan Plan: 1. Episodes of nausea and vomiting and weight loss for the last several months 2. Anemia will check iron and vitamin B12 and folate studies 3. Abnormal computed tomography scan of the liver showing hypoechoic lesions. Consultation for Dr. Ibarra was initiated for possible EGD and colonoscopy, consultation for Dr. Lewis was initiated to assess need for liver biopsy. 4. Will follow during this admission for medical management will initiate Protonix 40 mg by mouth daily and assess oral intake 5. For DVT prophylaxis we'll use SCD stockings, avoid heparin due to possible biopsy
[2020-07-10] MEDS ORDERED: SODIUM FERRIC GLUCONAT-SUCROSE 125 MG in SODIUM CHLORIDE 0.9% 100 ML IVPB ONE (19:00)
[2020-07-11] MEDS: ONDANSETRON 4 MG/2 ML VIAL IVP SCH ×6 (00:31→20:10)
[2020-07-11] MEDS: SODIUM CHLORIDE 0.9% 1,000 ML IV SCH ×2 (00:31→14:50)
[2020-07-11] MEDS: METOCLOPRAMIDE 5 MG/ML 2 ML VIAL IVP SCH ×4 (03:15→18:16)
[2020-07-11 06:57] LABS: Methylmalonic Acid 0.15 umol/L (<0.40)
[2020-07-11] MEDS: SUCRALFATE 1 GM TAB PO SCH ×3 (07:04→18:16)
[2020-07-11 07:30] LABS: Anisocytosis Slight; Basophils % (A) 0 %; Eosinophils # (A) 0.1 k/uL (0-0.7); Eosinophils % (A) 1 %; HCT 25.6 % (34.0-46.0); HGB 7.5 gm/dL (11.4-16.0); Hypochromasia Marked; Lymphocytes # (A) 1.6 k/uL (1.0-4.8); Lymphocytes % (A) 21 %; MCH 22.2 pg (25.0-35.0); MCHC 29.4 g/dL (31.0-37.0); MCV 75.6 fL (80.0-100.0); Mean Platelet Volume 6.6; Microcytosis Slight; Monocytes # (A) 0.4 k/uL (0-1.0); Monocytes % (A) 6 %; Neutrophils # (A) 5.3 k/uL (1.3-7.7); Neutrophils % (A) 71 %; Platelet Count 390 k/uL (150-450); RBC 3.38 m/uL (3.80-5.40); RDW 16.4 % (11.5-15.5); WBC 7.5 k/uL (3.8-10.6)
[2020-07-11 07:42] LABS: ALT 12 U/L (4-34); AST 53 U/L (14-36); African American GFR (CKD) >90 (>60 ml/min/1.73 sqM); Albumin 3.1 g/dL (3.5-5.0); Alkaline Phosphatase 84 U/L (38-126); Anion Gap 7 mmol/L; Blood Urea Nitrogen <2 mg/dL (7-17); Calcium 8.4 mg/dL (8.4-10.2); Carbon Dioxide 24 mmol/L (22-30); Chloride 106 mmol/L (98-107); Glucose 98 mg/dL (74-99); Non-African American GFR(CKD) >90 (>60 ml/min/1.73 sqM); Potassium 3.5 mmol/L (3.5-5.1); Sodium 137 mmol/L (137-145); Total Bilirubin 0.7 mg/dL (0.2-1.3); Total Protein 6.4 g/dL (6.3-8.2)
[2020-07-11] MEDS: PANTOPRAZOLE 40 MG/10 ML VIAL IVP SCH (08:24)
--- NOTE | 2020-07-11 11:40 | P.PN ---
Subjective Progress Note Date: 07/11/20 Principal diagnosis: Intractable vomiting Patient still having episodes of vomiting. Says she was not able to tolerate most of the food that was provided to her. Emesis typically occurs approximate 5 minutes post eating. Mild discomfort. Denies bloating. She is passing flat us. Objective - Vital Signs Vital signs: Vital Signs Temp 98.3 F 07/11/20 08:01 Pulse 81 07/11/20 09:00 Resp 16 07/11/20 09:00 BP 122/74 07/11/20 08:01 Pulse Ox 94 L 07/11/20 08:01 Intake & Output 07/10/20 07/11/20 07/11/20 18:59 06:59 18:59 Intake Total 300 500 240 Output Total 50 Balance 300 450 240 Intake: IV 300 400 Sodium Chloride 0.9% 1, 200 400 000 ml @ 50 mls/hr IV . Q20H [facility] Rx#:[id number] Oral 100 240 Output: Emesis 50 Other: Voiding Method Toilet Toilet Toilet # Voids 2 1 # Emeses 1 - Exam Abdomen: Soft, nontender, nondistended - Labs CBC & Chem 7: 07/11/20 06:35 07/11/20 06:35 Labs: Abnormal Lab Results - Last 24 Hours (Table) 07/07/20 07/11/20 07/11/20 Range/Units 06:17 06:35 06:35 RBC 3.38 L (3.80-5.40) m/uL Hgb 7.5 L (11.4-16.0) gm/dL Hct 25.6 L (34.0-46.0) % MCV 75.6 L (80.0-100.0) fL MCH 22.2 L (25.0-35.0) pg MCHC 29.4 L (31.0-37.0) g/dL RDW 16.4 H (11.5-15.5) % BUN <2 L (7-17) mg/dL AST 53 H (14-36) U/L Albumin 3.1 L (3.5-5.0) g/dL RBC Folate 1,297 H (280 - 791) ng/mL Assessment and Plan (1) Nausea & vomiting Narrative/Plan: 44-year-old female with intractable vomiting. We'll order a upper GI with small bowel follow-through at this time. If symptoms persist and that study is normal would recommend GI evaluation. Current Visit: Yes Status: Acute Priority: High Code(s): R11.2 - NAUSEA WITH VOMITING, UNSPECIFIED SNOMED Code(s): 09159658
--- NOTE | 2020-07-11 18:19 | P.PN ---
Subjective Progress Note Date: 07/11/20 Maki Hodge, is a 44-year-old female who presented to [facility] emergency room with several days history of nausea vomiting and poor oral intake, she was evaluated in the emergency room, her vital examination reveals a temperature of 98.4 pulse 114 respiration 18 blood pressure 100/56 and pulse ox 98% on room air, white blood count was 10.8 hemoglobin 9.2 platelet count 530 AST was elevated at 103, patient also had evidence of urinary tract infection, computed tomography scan of the chest abdomen and pelvis done in the emergency room, revealed evidence of low density lesions in the liver raising the possibility of metastatic disease, patient does not have any known history of cancer, she was admitted to medical floor for further evaluation patient has known history of anemia, she underwent a colonoscopy in 2013 and had evidence of one polyp that was removed, recommendation was to proceed with colonoscopy in 5 years, however patient declined repeat colonoscopy last year. Patient has history of anemia she was maintained on iron supplements, she stopped taking iron supplements and multiple other medications several months ago, due to financial reasons per patient, she reports 20-30 pounds weight loss in the last 3-4 months. She stated that her mother was recently diagnosed with colon cancer. On 07/07/2020 patient was seen and examined on the medical floor she is alert and oriented 3 in no apparent distress hemoglobin is down to 7.3 patient is scheduled for EGD by Dr. Chacko today otherwise patient is still complaining of nausea and poor oral intake there is no fever or chills no headache or dizziness no chest pain no shortness of breath no cough no vomiting no abdominal pain no diarrhea and no urinary symptoms. On 07/08/2020 patient was seen and examined on the medical floor she is alert and oriented 3 she is still complaining of nausea or vomiting and abdominal discomfort hemoglobin is stable at 7.4 patient underwent EGD yesterday results noted and case was discussed with Dr. Ibarra, at this time continue with symptomatic management and proceed with colonoscopy on Friday. On 07/09/2020 patient is alert and oriented 3 resting complained bed. Patient still having nausea throughout the night. Hemoglobin 7.4. Per surgery patient will attempt bowel prep for colonoscopy tomorrow. Patient remains on Rocephin for UTI. Patient denies chest pain or shortness of breath. Patient denies any urinary burning or frequency On 07/10/2020 patient was seen and examined on the medical floor she is alert and oriented 3 in no apparent distress she is still complaining of nausea and vomiting otherwise she denies any complaints she had a colonoscopy today which failed to reveal any evidence of polyps inflammation or cancer at this time will advance diet as tolerated, laboratory data is significant for anemia and evidence of iron deficiency, she is unable to tolerate oral iron, will give 1 dose of IV iron today and monitor, possible discharge to home tomorrow. On 07/11/2020 patient was seen and examined on the medical floor she is alert and oriented 3 she is complaining still of episodes of vomiting she was evaluated by Dr. chacko and plan is to proceed was upper GI series, patient is still also complaining of some abdominal tenderness, there is no fever or chills no headache or dizziness no chest pain no shortness of breath no cough no diarrhea no blood in the stools and no urinary symptoms Objective - Vital Signs Vital signs: Vital Signs Temp 98.3 F 07/11/20 08:01 Pulse 81 07/11/20 09:00 Resp 16 07/11/20 09:00 BP 122/74 07/11/20 08:01 Pulse Ox 94 L 07/11/20 08:01 Intake & Output 07/10/20 07/11/20 07/11/20 18:59 06:59 18:59 Intake Total 300 500 240 Output Total 50 Balance 300 450 240 Intake: IV 300 400 Sodium Chloride 0.9% 1, 200 400 000 ml @ 50 mls/hr IV . Q20H [facility] Rx#:[id number] Oral 100 240 Output: Emesis 50 Other: Voiding Method Toilet Toilet Toilet # Voids 2 1 # Emeses 1 - Exam In general patient is alert and oriented 3 in no apparent distress HEENT head normocephalic and atraumatic Neck is supple no JVD no goiter no lymphadenopathy Chest exam reveals a few scattered crackles no wheezing Cardiac exam reveals regular heart sounds no murmurs Abdomen is soft nontender no hepatomegaly no splenomegaly bowel sounds are normal Extremity exam reveals no edema no cyanosis or clubbing Neurological examination reveals no gross focal deficits - Labs CBC & Chem 7: 07/11/20 06:35 07/11/20 06:35 Labs: Abnormal Lab Results - Last 24 Hours (Table) 07/07/20 07/11/20 07/11/20 Range/Units 06:17 06:35 06:35 RBC 3.38 L (3.80-5.40) m/uL Hgb 7.5 L (11.4-16.0) gm/dL Hct 25.6 L (34.0-46.0) % MCV 75.6 L (80.0-100.0) fL MCH 22.2 L (25.0-35.0) pg MCHC 29.4 L (31.0-37.0) g/dL RDW 16.4 H (11.5-15.5) % BUN <2 L (7-17) mg/dL AST 53 H (14-36) U/L Albumin 3.1 L (3.5-5.0) g/dL RBC Folate 1,297 H (280 - 791) ng/mL Assessment and Plan Plan: 1. Episodes of nausea and vomiting and weight loss for the last several months 2. Anemia will check iron and vitamin B12 and folate studies 3. Abnormal computed tomography scan of the liver showing hypoechoic lesions. Consultation for Dr. Ibarra was initiated for possible EGD and colonoscopy, consultation for Dr. Lewis was initiated to assess need for liver biopsy. 4. Will follow during this admission for medical management will initiate Protonix 40 mg by mouth daily and assess oral intake 5. For DVT prophylaxis we'll use SCD stockings, will start subcu heparin at this time.
[2020-07-11] MEDS: HEPARIN SODIUM,PORCINE 5,000 UNIT/ML 1 ML VIAL SQ SCH (20:10)
[2020-07-12] MEDS: METOCLOPRAMIDE 5 MG/ML 2 ML VIAL IVP SCH ×3 (00:26→11:11)
[2020-07-12] MEDS: ONDANSETRON 4 MG/2 ML VIAL IVP SCH ×4 (00:26→11:09)
[2020-07-12 03:14] VITALS: RESP 16
[2020-07-12 07:47] LABS: Anisocytosis Slight; Basophils % (A) 0 %; Eosinophils # (A) 0.2 k/uL (0-0.7); Eosinophils % (A) 2 %; HCT 25.4 % (34.0-46.0); HGB 7.6 gm/dL (11.4-16.0); Hypochromasia Marked; Lymphocytes # (A) 1.7 k/uL (1.0-4.8); Lymphocytes % (A) 26 %; MCH 23.1 pg (25.0-35.0); MCV 77.1 fL (80.0-100.0); Mean Platelet Volume 6.7; Microcytosis Slight; Monocytes # (A) 0.5 k/uL (0-1.0); Monocytes % (A) 7 %; Neutrophils # (A) 4.3 k/uL (1.3-7.7); Neutrophils % (A) 63 %; Platelet Count 348 k/uL (150-450); RBC 3.29 m/uL (3.80-5.40); RDW 16.9 % (11.5-15.5); WBC 6.7 k/uL (3.8-10.6)
[2020-07-12] MEDS: SODIUM CHLORIDE 0.9% 1,000 ML IV SCH (07:50)
[2020-07-12] MEDS: SUCRALFATE 1 GM TAB PO SCH ×2 (07:51→11:10)
[2020-07-12 07:57] VITALS: PULSE 85; TEMP 98
[2020-07-12] MEDS: HEPARIN SODIUM,PORCINE 5,000 UNIT/ML 1 ML VIAL SQ SCH (08:00)
[2020-07-12] MEDS: PANTOPRAZOLE 40 MG/10 ML VIAL IVP SCH (08:00)
[2020-07-12 08:04] LABS: ALT 11 U/L (4-34); AST 48 U/L (14-36); African American GFR (CKD) >90 (>60 ml/min/1.73 sqM); Albumin 2.9 g/dL (3.5-5.0); Alkaline Phosphatase 78 U/L (38-126); Anion Gap 6 mmol/L; Blood Urea Nitrogen <2 mg/dL (7-17); Calcium 8.4 mg/dL (8.4-10.2); Carbon Dioxide 26 mmol/L (22-30); Chloride 106 mmol/L (98-107); Glucose 103 mg/dL (74-99); Non-African American GFR(CKD) >90 (>60 ml/min/1.73 sqM); Potassium 3.4 mmol/L (3.5-5.1); Sodium 138 mmol/L (137-145); Total Bilirubin 0.5 mg/dL (0.2-1.3); Total Protein 6.2 g/dL (6.3-8.2)
[2020-07-12] MEDS ORDERED: Potassium Replacement Protocol 1 EACH MISC MISCELLANE PRN (10:12)
--- NOTE | 2020-07-12 10:44 | FL ---
EXAMINATION TYPE: FL esophagus w sm bowel DATE OF EXAM: 07/12/2020 COMPARISON: NONE HISTORY: Intractable vomiting TECHNIQUE: A double contrast esophagram study is performed with small bowel follow through. FINDINGS: Instructor Private image of the abdomen shows no gross abnormality. Fallopian tubal ligation clips are present. Surgical clips are present in the right upper quadrant. The esophagus shows normal motility and emptying into the stomach. No evidence of hiatal hernia or s tricture noted. No significant esophageal reflux was seen during real time performance of this study. The small bowel study shows no rapid transit to the colon in less than 30 minutes. There is normal m ucosal fold pattern throughout the small bowel. There is no evidence of any stricture or filling def ect noted. The terminal ileum is unremarkable. 1 minute 47 seconds fluoroscopy time, 25 images obtained. IMPRESSION: Rapid transit to the colon..
[2020-07-12] MEDS: POTASSIUM CHLORIDE ER 20 MEQ TAB.ER PO SCH ×2 (11:09→12:19)
--- NOTE | 2020-07-12 12:27 | P.BASOAP ---
Subjective Progress Note Date: 07/12/20 Principal diagnosis: Intractable vomiting Patient apparently had a small episode of vomiting last night. Today's upper GI small bowel follow-through showed quick transit but no obstruction or mucosal lesions. Patient believes her nausea is somewhat improved. Minimal pain. Objective - Vital Signs Vital signs: Vital Signs Temp 98 F 07/12/20 07:55 Pulse 85 07/12/20 09:00 Resp 16 07/12/20 09:00 BP 88/47 07/12/20 07:55 Pulse Ox 93 L 07/12/20 07:55 Intake & Output 07/11/20 07/12/20 07/12/20 18:59 06:59 18:59 Intake Total 480 480 Output Total 25 Balance 480 455 Intake: Oral 480 480 Output: Emesis 25 Other: Voiding Method Toilet Toilet Toilet # Voids 2 2 - Exam Abdomen: Soft, nontender, nondistended - Labs CBC & Chem 7: 07/12/20 07:27 07/12/20 07:27 Labs: Abnormal Lab Results - Last 24 Hours (Table) 07/12/20 07/12/20 Range/Units 07:27 07:27 RBC 3.29 L (3.80-5.40) m/uL Hgb 7.6 L (11.4-16.0) gm/dL Hct 25.4 L (34.0-46.0) % MCV 77.1 L (80.0-100.0) fL MCH 23.1 L (25.0-35.0) pg MCHC 30.0 L (31.0-37.0) g/dL RDW 16.9 H (11.5-15.5) % Potassium 3.4 L (3.5-5.1) mmol/L BUN <2 L (7-17) mg/dL Glucose 103 H (74-99) mg/dL AST 48 H (14-36) U/L Total Protein 6.2 L (6.3-8.2) g/dL Albumin 2.9 L (3.5-5.0) g/dL Assessment/Plan (1) Nausea & vomiting Narrative/Plan: Patient overall doing better. Will advance diet as tolerated. No further intervention or diagnostics plan from my point of view. If symptoms persist recommend GI consultation. Plan: Date: 07/06/20 Initial Weight: Initial BMI: Current Weight: 94.801 kg Current BMI: Type of Surgery: Total Volume in Band: Previous Volume: Volume Removed: Volume Added: Band Size:
[2020-07-12 13:19] VITALS: BMI 38.2
--- NOTE | 2020-07-12 13:55 | P.DS ---
Providers Date of admission: 07/06/20 10:17 Expected date of discharge: 07/12/20 Attending physician: Kacey Brennan Consults: 07/05/20 21:00 Consult Physician Routine Consulting Provider: Lowell Ibarra Consult Reason/Comments: known Do you want consulting provider notified?: Yes 07/06/20 10:19 Consult Physician Routine Consulting Provider: Braulio Lewis Consult Reason/Comments: possile liver mets Do you want consulting provider notified?: Yes Primary care physician: Kacey Mika [place] [facility] Course: Discharge diagnosis 1. Episodes of nausea and vomiting and weight loss for the last several months. Status post EGD showing gastritis and distal esophagitis. Colonoscopy completed showing normal exam. Patient had upper GI series today per surgical s ervices findings suggest no gross abnormality. Discussed case with surgical services patient may be discharged home. Patient will be discharged home on Protonix Carafate and Zofran 2. Anemia will check iron and vitamin B12 and folate studies 3. Abnormal computed tomography scan of the liver showing hypoechoic lesions. Liver MRI completed showing multiple liver lesions as above features of local fatty filtration of the liver I do not suspect malignant tumor. Oncology services are following. Per hematology liver lesions fatty treated for MRI repeat MRI in 6-12 months 4. Will follow during this admission for medical management will initiate Protonix 40 mg by mouth daily and assess oral intake 5. For DVT prophylaxis we'll use SCD stockings, will start subcu heparin at this time. 6. Urinary tract infection. Patient will be DC'd on Ceftin for 7 days. Hospital course Maki Hodge, is a 44-year-old female who presented to [facility] emergency room with several days history of nausea vomiting and poor oral intake, she was evaluated in the emergency room, her vital examination reveals a temperature of 98.4 pulse 114 respiration 18 blood pressure 100/56 and pulse ox 98% on room air, white blood count was 10.8 hemoglobin 9.2 platelet count 530 AST was elevated at 103, patient also had evidence of urinary tract infection, computed tomography scan of the chest abdomen and pelvis done in the emergency room, revealed evidence of low density lesions in the liver raising the possibility of metastatic disease, patient does not have any known history of cancer, she was admitted to medical floor for further evaluation patient has known history of anemia, she underwent a colonoscopy in 2013 and had evidence of one polyp that was removed, recommendation was to proceed with colonoscopy in 5 years, however patient declined repeat colonoscopy last year. Patient has history of anemia she was maintained on iron supplements, she stopped taking iron supplements and multiple other medications several months ago, due to financial reasons per patient, she reports 20-30 pounds weight loss in the last 3-4 months. She stated that her mother was recently diagnosed with colon cancer. On 07/07/2020 patient was seen and examined on the medical floor she is alert and oriented 3 in no apparent distress hemoglobin is down to 7.3 patient is scheduled for EGD by Dr. Chacko today otherwise patient is still complaining of nausea and poor oral intake there is no fever or chills no headache or dizziness no chest pain no shortness of breath no cough no vomiting no abdominal pain no diarrhea and no urinary symptoms. On 07/08/2020 patient was seen and examined on the medical floor she is alert and oriented 3 she is still complaining of nausea or vomiting and abdominal discomfort hemoglobin is stable at 7.4 patient underwent EGD yesterday results noted and case was discussed with Dr. Ibarra, at this time continue with symptomatic management and proceed with colonoscopy on Friday. On 07/09/2020 patient is alert and oriented 3 resting complained bed. Patient still having nausea throughout the night. Hemoglobin 7.4. Per surgery patient will attempt bowel prep for colonoscopy tomorrow. Patient remains on Rocephin for UTI. Patient denies chest pain or shortness of breath. Patient denies any urinary burning or frequency On 07/10/2020 patient was seen and examined on the medical floor she is alert and oriented 3 in no apparent distress she is still complaining of nausea and vomiting otherwise she denies any complaints she had a colonoscopy today which failed to reveal any evidence of polyps inflammation or cancer at this time will advance diet as tolerated, laboratory data is significant for anemia and evidence of iron deficiency, she is unable to tolerate oral iron, will give 1 dose of IV iron today and monitor, possible discharge to home tomorrow. On 07/11/2020 patient was seen and examined on the medical floor she is alert and oriented 3 she is complaining still of episodes of vomiting she was evaluated by Dr. chacko and plan is to proceed was upper GI series, patient is still also complaining of some abdominal tenderness, there is no fever or chills no headache or dizziness no chest pain no shortness of breath no cough no diarrhea no blood in the stools and no urinary symptoms On 07/12/2020 patient is alert and oriented 3. Patient had one episode of emesis. Does reports improvement. Patient has been thoroughly worked up by surgical service including EGD and colonoscopy and upper GI series no further workup per surgical services. Patient will be discharged home on Protonix Carafate and Zofran. Patient to receive IV iron prior to discharge and will be discharged on ferrous sulfate. Patient also discharged on Ceftin for urinary tract infection. Patient to follow-up with PCP for further workup I performed an examination of the patient and discussed their management with the Nurse Practitioner. I have reviewed the Nurse Practitioner's notes and agree with the documented findings and plan of care Patient Condition at Discharge: Stable Plan - Discharge Summary Discharge Rx Participant: No New Discharge Prescriptions: New Sucralfate [Carafate] 1 gm PO AC-TID #21 tab Ferrous Sulfate [Feosol] 325 mg PO DAILY 30 Days #30 tab Pantoprazole Sodium [Protonix] 40 mg PO BID #60 tablet. Ondansetron [Zofran] 4 mg PO Q8HR PRN 14 Days #28 tab PRN Reason: Nausea Cefuroxime Axetil [Ceftin] 500 mg PO BID 7 Days #14 tab Discharge Medication List Cefuroxime Axetil [Ceftin] 500 mg PO BID 7 Days #14 tab 07/12/20 [Rx] Ferrous Sulfate [Feosol] 325 mg PO DAILY 30 Days #30 tab 07/12/20 [Rx] Ondansetron [Zofran] 4 mg PO Q8HR PRN 14 Days #28 tab 07/12/20 [Rx] Pantoprazole Sodium [Protonix] 40 mg PO BID #60 tablet. 07/12/20 [Rx] Sucralfate [Carafate] 1 gm PO AC-TID #21 tab 07/12/20 [Rx] Follow up Appointment(s)/Referral(s): Kacey Brennan MD [Primary Care Provider] - 1-2 days Patient Instructions/Handouts: Acute Abdominal Pain (DC)
[2020-07-12 14:09] VITALS: BP 96/65
[2020-07-12] MEDS ORDERED: SODIUM FERRIC GLUCONAT-SUCROSE 125 MG in SODIUM CHLORIDE 0.9% 100 ML IVPB ONE (15:00)
== END 2020-07-12 16:40 | disposition home or self-care (01) | DRG 392 ==
LOC: EC 17:25 → 4SSUR 20:59 → UNDOADMIN 20:59 → 3NCARDOBS 21:00 → OBSVTOIN 07-06 10:17
PROVIDERS: ADMIT Internal Medicine; ATTEND Internal Medicine
PROC: 0DB78ZX Excision of Stomach, Pylorus, Via Natural or Artificial Opening Endoscopic, Diagnostic (ICD-10-PCS; principal; 2020-07-07 07:30)
PROC: 0DJD8ZZ Inspection of Lower Intestinal Tract, Via Natural or Artificial Opening Endoscopic (ICD-10-PCS; principal; 2020-07-07 07:30)
DX: K29.70 Gastritis, unspecified, without bleeding (principal); N39.0 Urinary tract infection, site not specified; D50.9 Iron deficiency anemia, unspecified; D53.9 Nutritional anemia, unspecified; F32.9 Major depressive disorder, single episode, unspecified; F41.9 Anxiety disorder, unspecified; R79.1 Abnormal coagulation profile; K20.90 Esophagitis, unspecified without bleeding; Z80.0 Family history of malignant neoplasm of digestive organs; Z87.19 Personal history of other diseases of the digestive system; Z87.891 Personal history of nicotine dependence; K76.0 Fatty (change of) liver, not elsewhere classified
CPT/HCPCS: 36415; 43239; 45378; 71260; 74177; 74183; 74240; 74248; 76830; 80053; 81001; 81025; 82550; 82607; 82728; 82746; 82747; 83540; 83550; 83605; 83735; 83880; 83921; 84100; 84443; 84484; 85025; 85045; 85610; 85730; 87077; 87086; 87186; 88305; 93005; 93976; 94760; 96361; 96374; 96375; 99285

== ENCOUNTER → 2020-08-12 | Outpatient (CLI) | payer MEDICARE, OTHER ==
--- NOTE | 2020-08-13 19:05 | MR ---
EXAMINATION TYPE: MR lumbar spine wo con DATE OF EXAM: 08/12/2020 COMPARISON: CT chest abdomen pelvis 07/05/2020 HISTORY: Low back pain w/ numbness into cameron lower extremities TECHNIQUE: Multiplanar, multisequence images of the lumbar spine were acquired. Spinal alignment is normal. Vertebral body heights are preserved. Vertebral bone marrow is normal in signal. Hemangioma L5. Multilevel degenerative disc disease, as described by level below. Disc desiccation of L5-S1 Lower th oracic cord is normal in signal. Conus terminates normally at L1. Cauda equina nerve roots are normal in course and caliber. Paraspinal soft tissues are unremarkable. Visualized upper sacroiliac joints appear intact. T12-L1: No posterior disc herniation, protrusion, or bulging. No canal stenosis. Foramina are patent bilaterally. L1-L2: No posterior disc herniation, protrusion, or bulging. No canal stenosis. Foramina are patent b ilaterally. L2-L3: No posterior disc herniation, protrusion, or bulging. No canal stenosis. Foramina are patent b ilaterally. L3-L4: No posterior disc herniation, protrusion, or bulging. No canal stenosis. Foramina are patent b ilaterally. Mild facet arthropathy. L4-L5: Minimal posterior disc bulge effaces the ventral aspect of the thecal sac. No canal stenosis. Foramina are patent bilaterally. Left facet joint posterior synovial cyst measuring 3 mm (501:10). Mi ld facet arthropathy. L5-S1: Mild posterior disc bulging. No canal stenosis. Foramina are mildly narrowed on the left. Mild facet arthropathy. 2.0 cm right presacral T2 hyperintense benign appearing cystic lesion, just superior to the uterine f undus (301:13). IMPRESSION: 1. Mild degenerative disc disease and facet arthropathy as above. No canal stenosis. Mild left neural foramina narrowing at L5-S1. 2. Right presacral 2.0 cm benign-appearing cystic lesion seen just superior to the uterus. Findings m ay represent ovarian follicle, however is incompletely visualized and without definitive etiology. Co nsider follow-up with pelvic ultrasound.
== END | disposition home or self-care (01) ==
LOC: RADMRIMAIN 10:59
PROVIDERS: ATTEND Internal Medicine
DX: M48.07 Spinal stenosis, lumbosacral region (principal); M47.816 Spondylosis without myelopathy or radiculopathy, lumbar region; M51.36 Other intervertebral disc degeneration, lumbar region
CPT/HCPCS: 72148

== ENCOUNTER → 2020-08-30 | Outpatient (CLI) | payer MEDICARE, OTHER ==
--- NOTE | 2020-08-31 08:06 | US ---
EXAMINATION TYPE: US pelvis complete transvag DATE OF EXAM: 08/30/2020 COMPARISON: MRI CLINICAL HISTORY: R19.09 ABD/PELVIC MASS. TECHNIQUE: Transvaginal (TV) and Transabdominal (TA) . Transabdominal sonographic images of the pel vis were acquired. Transvaginal sonographic images were medically necessary to better assess the fol lowing anatomy: cystic mass seen on MRI. Date of LMP: approximately one month ago per patient EXAM MEASUREMENTS: Uterus: 13.0 x 4.3 x 6.5 cm Endometrial Stripe: 2.9 cm Right Ovary: 3.6 x 3.1 x 2.1 cm Left Ovary: 2.1 x 2.1 x 1.4 cm 1. Uterus: Anteverted enlarged at 13.0 cm 2. Endometrium: thickened at 2.9 cm 3. Right Ovary: cyst measures 2.5 x 1.2 x 2.6 cm 4. Left Ovary: wnl 5. Bilateral Adnexa: wnl 6. Posterior cul-de-sac: no free fluid IMPRESSION: 1. Enlarged uterus with thickened endometrium. 2. Right ovarian cystic lesion may be functional in nature. This can be confirmed with follow-up stud y in 6 weeks.
== END | disposition home or self-care (01) ==
LOC: RADUSWWP 15:38
PROVIDERS: ATTEND Internal Medicine
DX: N83.201 Unspecified ovarian cyst, right side (principal); N85.2 Hypertrophy of uterus; R93.89 Abnormal findings on diagnostic imaging of other specified body structures
CPT/HCPCS: 76830; 76856

== ENCOUNTER → 2020-09-18 | Outpatient (CLI) | payer MEDICARE, OTHER ==
[2020-09-18 15:30] LABS: Anion Gap 5.6 mmol/L (4.00-12.00); Carbon Dioxide 28.4 mmol/L (21.6-31.8); Magnesium 1.7 mg/dL (1.5-2.4); Potassium 4.3 mmol/L (3.5-5.5)
== END | disposition home or self-care (01) ==
LOC: LABWHC1 09:28
PROVIDERS: ATTEND Psychiatry & Neurology Neurology
DX: R20.2 Paresthesia of skin (principal); Z79.899 Other long term (current) drug therapy
CPT/HCPCS: 36415; 80051; 82306; 82607; 83735; 84439; 84443

== ENCOUNTER → 2020-11-29 | Outpatient (CLI) | payer MEDICARE, OTHER ==
[2020-11-29 13:35] LABS: Basophils % (A) 0 %; Eosinophils # (A) 0.2 k/uL (0-0.7); Eosinophils % (A) 3 %; HCT 33.4 % (34.0-46.0); HGB 10.5 gm/dL (11.4-16.0); Hypochromasia Slight; Lymphocytes # (A) 1.7 k/uL (1.0-4.8); Lymphocytes % (A) 24 %; MCH 29.3 pg (25.0-35.0); MCHC 31.6 g/dL (31.0-37.0); MCV 92.7 fL (80.0-100.0); Mean Platelet Volume 7.1; Monocytes # (A) 0.3 k/uL (0-1.0); Monocytes % (A) 4 %; Neutrophils # (A) 4.8 k/uL (1.3-7.7); Neutrophils % (A) 69 %; Platelet Count 311 k/uL (150-450); RDW 13.4 % (11.5-15.5)
== END | disposition home or self-care (01) ==
LOC: LABWHC1 12:33
PROVIDERS: ATTEND Obstetrics & Gynecology
DX: Z01.818 Encounter for other preprocedural examination (principal); N92.0 Excessive and frequent menstruation with regular cycle; D64.9 Anemia, unspecified
CPT/HCPCS: 36415; 85025

== ENCOUNTER 2020-12-04 08:49 | Day surgery (SDC) | payer MEDICARE, OTHER ==
[2020-11-28 15:58] VITALS: BMI 41.3
--- NOTE | 2020-11-28 17:14 | HP ---
HISTORY AND PHYSICAL DATE OF SURGERY: 12/04/2020 This is a 45-year-old white female, 6, para 5-0-1-5, who presents with a history of heavy painful menstrual periods, requesting NovaSure endometrial ablation. The patient has had a tubal ligation. Recent blood work includes hemoglobin 10.4, thyroid function studies within normal limits, FSH 6. Endometrial biopsy reveals disordered proliferative endometrium. The patient has received the [facility]COG pamphlets on this procedure, all questions answered, and a second opinion offered and declined. PAST MEDICAL HISTORY: Significant for anemia and asthma. PAST SURGICAL HISTORY: Appendectomy, cholecystectomy, sections. CURRENT MEDICATIONS: Alprazolam 0.25 mg as needed, Flexeril daily, pantoprazole 40 mg delayed-release tablets by oral route 2 times a day, sucralfate 1 gram tablet daily. ALLERGIES: ALLERGIES include BACTRIM, to which she reports no improvement of her symptoms. FAMILY HISTORY: Significant for colon cancer and diabetes. OBSTETRIC HISTORY: Vaginal deliveries x2, sections x3, all unremarkable. SOCIAL HISTORY: Patient is a former tobacco smoker, social alcohol. She denies drug use. PHYSICAL EXAMINATION: On exam, patient is 5 feet 2 inches, 222 pounds. BMI is 40, blood pressure 120/82. HEENT exam reveals no thyromegaly, no cervical lymphadenopathy. Chest is clear to auscultation in all riojas. Cardiac exam reveals regular rate and rhythm with no murmur, click or rub. Breasts are somewhat symmetric bilaterally. No skin dimpling, nipple discharge or axillary adenopathy. Extremities reveal no edema. Abdomen is mildly obese. No organosplenomegaly. Active bowel sounds. External genitalia are well estrogenized. Cervix is multiparous. Uterus is small, anteverted, anteflexed, smooth and mobile. Adnexa are negative bilaterally. Rectal exam reveals good tone, no hemorrhoids. FIT-negative stool sample. IMPRESSION: Increased endometrial stripe thickness sonographically, hypermenorrhea. PLAN: We will proceed with hysteroscopy and NovaSure endometrial ablation. Risks and benefits of the procedure as well as anesthesia have been discussed in detail. All questions answered. Patient understands the risks of bleeding, infection, perforation or damage to bowel, bladder, ureters or indeed any pelvic or abdominal organs. Second opinion offered and declined. We will proceed with surgery at [facility] on December 04. MMMARTIN / IJSmitha: [id number] /
[~2020-12-04 08:49] MED LIST changes: +DEXAMETHASONE SOD PHOSPHATE 4 MG/ML 1 ML VIAL IV ONE; -DOBUTamine DRIP for NUC MED 500 MG in DEXTROSE/WATER 1 250ML.BAG IV ONE; +HYDROmorphone 0.5 MG/0.5 ML SYRINGE IVP PRN; +LACTATED RINGERS 1,000 ML IV SCH; +LIDOCAINE 1% (10MG/ML) FOR IV START INTRADERMA PRN; +ONDANSETRON 4 MG/2 ML VIAL IVP ONE; +Pre Op ABX Message 1 EACH MISC MISCELLANE ONE
[2020-12-04] MEDS ORDERED: KETOROLAC 15 MG/ML 1 ML VIAL ONE (09:46)
[2020-12-04] MEDS ORDERED: LIDOCAINE 1% INJ 10MG/ML (20 ML MDV) ONE (09:46)
[2020-12-04] MEDS ORDERED: MIDAZOLAM 2 MG/2 ML VIAL ONE (09:46)
[2020-12-04] MEDS ORDERED: fentaNYL (PF) 50 MCG/ML 2 ML AMP ONE (09:46)
[2020-12-04] MEDS ORDERED: SUCCINYLCHOLINE CHLORIDE 100 MG/5 ML SYR IV ONE (09:46)
[2020-12-04] MEDS ORDERED: PROPOFOL 10 MG/ML 20 ML VIAL IV ONE (09:46)
[2020-12-04] MEDS ORDERED: SILVER NITRATE APPLICATOR 1 EACH STICK..EA. TOPICAL ONE ×2 (10:11)
[2020-12-04] MEDS ORDERED: LACTATED RINGERS 1,000 ML IV ONE (10:23)
--- NOTE | 2020-12-04 10:33 | P.OP ---
Date of Procedure: 12/04/20 Preoperative Diagnosis: Hypermenorrhea, increased endometrial thickness, anemia Postoperative Diagnosis: Same Procedure(s) Performed: Hysteroscopy, NovaSure endometrial ablation Anesthesia: FAMA Surgeon: Kimberly Tavarez Estimated Blood Loss (ml): 20 IV fluids (ml): 800 Urine output (ml): 25 Pathology: none sent Condition: stable Disposition: PACU Operative Findings: Essentially normal-appearing endometrial cavity with proliferative changes noted. No obvious fibroids or polyps. Grade 2-3 uterine prolapse. Description of Procedure: Patient is brought to the operating suite where a general anesthetic is administered without difficulty. She's placed in the dorsal lithotomy position. The cervix, vagina, perineal body are all prepped and draped in usual sterile fashion. The appropriate timeout is performed to assure proper patient and procedural identification. Bladder is drained for approximately 25 mL of clear yellow urine. Examination under anesthesia reveals a slightly enlarged anteverted uterus, negative adnexa bilaterally, grade 2-3 uterine prolapse. Weighted speculum was placed into the vagina. Anterior lip of the cervix is grasped with a double-tooth tenaculum. Uterus sounds to a depth of 9.5 cm in the anteverted position. Cervix is then gently and systematically dilated using Hanks dilators. Hysteroscope was introduced and the cavity is distended utilizing sterile saline . Proliferative-type appearing tissue was noted with no obvious polyps or fibroids. Hysteroscope was removed. Wand is then placed into the cavity, seated and calibrated. The uterine length of 6.5 cm, width 4.3 cm is chosen. Machine is enabled. For 56 seconds and a power of 154 W the procedure is carried out. When the machine shuts off the wand is reduced and removed. Hysteroscope was reintroduced, cavity appears uniformly blanched. Speculum is removed. A suture of 2-0 Vicryl is used on the anterior lip of the cervix with a tenaculum is placed for excellent hemostasis. All sponge needle and enhancement counts are correct. Patient is brought back to the recovery room in very good condition with stable vital signs including blood pressure 95/55, pulse 75. Toradol is given prior to leaving the operative suite. Patient will follow-up with me in the office in 2 weeks.
[2020-12-04 10:35] VITALS: TEMP 97.3
[2020-12-04 11:41] VITALS: PULSE 85
[2020-12-04 11:57] VITALS: BP 95/58; RESP 18
== END 2020-12-04 12:16 | disposition home or self-care (01) ==
LOC: OR 08:49
PROVIDERS: ATTEND Obstetrics & Gynecology
DX: N92.0 Excessive and frequent menstruation with regular cycle (principal); N94.6 Dysmenorrhea, unspecified; D64.9 Anemia, unspecified; J45.909 Unspecified asthma, uncomplicated; R56.9 Unspecified convulsions; Z90.49 Acquired absence of other specified parts of digestive tract; Z98.891 History of uterine scar from previous surgery; Z90.89 Acquired absence of other organs; Z83.3 Family history of diabetes mellitus; Z80.0 Family history of malignant neoplasm of digestive organs; Z87.891 Personal history of nicotine dependence; Z79.899 Other long term (current) drug therapy; Z88.2 Allergy status to sulfonamides
CPT/HCPCS: 81025; 58563; J2250; J1100; J2405; J2001; J3010; J1885; J0330; J2704

== ENCOUNTER 2021-11-24 13:25 | Inpatient (IN) | payer MEDICARE ==
[2021-11-24] MEDS ORDERED: MORPHINE SULFATE 4 MG/ML SYRINGE IV STA (13:45)
[2021-11-24] MEDS ORDERED: ONDANSETRON 4 MG/2 ML VIAL IVP STA (13:45)
[2021-11-24] MEDS ORDERED: SODIUM CHLORIDE 0.9% 500 ML 500 ML IV STA (13:45)
--- NOTE | 2021-11-24 14:12 | ED ---
General Adult HPI - General Source: patient, RN notes reviewed, old records reviewed Mode of arrival: ambulatory Limitations: no limitations <August Pastrana - Last Filed: 11/24/21 14:54> <Ephraim Camacho - Last Filed: 11/24/21 19:38> - General Chief complaint: Nausea/Vomiting/Diarrhea Stated complaint: vomiting Time Seen by Provider: 11/24/21 13:37 - History of Present Illness Initial comments: 46-year-old female presenting for evaluation of nausea vomiting and generalized abdominal pain. Symptoms have been present for the past almost 2 weeks. She states she was diagnosed with coronavirus about 2 weeks ago. She reports mild cough. No dyspnea. No central chest pain. She does have a headache as well. She had a loose bowel movement today. (August Pastrana) - Related Data Home Medications Medication Instructions Recorded Confirmed Fluticasone/Vilanterol [Breo 1 puff INHALATION RT-DAILY 11/24/21 11/24/21 Ellipta 200-25 Mcg Inhaler] metFORMIN HCL 500 mg PO BID 11/24/21 11/24/21 Previous Rx's Medication Instructions Recorded Ferrous Sulfate [Feosol] 325 mg PO DAILY 30 Days #30 tab 07/12/20 Pantoprazole Sodium [Protonix] 40 mg PO BID #60 tablet. 07/12/20 Sucralfate [Carafate] 1 gm PO AC-TID #21 tab 07/12/20 Allergies Allergy/AdvReac Type Severity Reaction Status Date / Time sulfamethoxazole Allergy Nausea & Verified 11/24/21 18:34 [From Bactrim] Vomiting trimethoprim [From Bactrim] Allergy Nausea & Verified 11/24/21 18:34 Vomiting Review of Systems ROS Other: All systems not noted in ROS Statement are negative. <August Pastrana - Last Filed: 11/24/21 14:54> ROS Other: All systems not noted in ROS Statement are negative. <Ephraim Camacho - Last Filed: 11/24/21 19:38> ROS Statement: Those systems with pertinent positive or pertinent negative responses have been documented in the HPI. Past Medical History Past Medical History: Seizure Disorder Additional Past Medical History / Comment(s): hx petit mal with last known seizure age 18,. HEAVY, PAINFUL PERIODS History of Any Multi-Drug Resistant Organisms: MRSA Date of last positivie culture/infection: 2009 MDRO Source:: forehead Past Surgical History: Appendectomy, Section, Cholecystectomy, Tubal Ligation Additional Past Surgical History / Comment(s): D & C, tracheotomy as a child, C- SEC X 3, COLONOSCOPY/EGD X2 Past Anesthesia/Blood Transfusion Reactions: No Reported Reaction Past Psychological History: Anxiety, Depression Smoking Status: Former smoker - Past Family History Mother Family Medical History: Cancer Additional Family Medical History / Comment(s): COLON <August Pastrana - Last Filed: 11/24/21 14:54> General Exam Limitations: no limitations General appearance: alert, in no apparent distress Head exam: Present: atraumatic, normocephalic Eye exam: Present: normal appearance, PERRL ENT exam: Present: mucous membranes dry Neck exam: Present: normal inspection. Absent: tenderness, meningismus Respiratory exam: Present: normal lung sounds bilaterally. Absent: respiratory distress, wheezes Cardiovascular Exam: Present: regular rate, normal rhythm GI/Abdominal exam: Present: soft, tenderness (Mild tenderness). Absent: distended, guarding, rebound Extremities exam: Present: normal inspection, normal capillary refill. Absent: pedal edema Neurological exam: Present: alert, oriented X3, CN II-XII intact. Absent: motor sensory deficit Psychiatric exam: Present: normal affect, normal mood Skin exam: Present: warm, dry, intact. Absent: cyanosis, diaphoretic <August Pastrana - Last Filed: 11/24/21 14:54> Course <August Pastrana - Last Filed: 11/24/21 14:54> <Ephraim Camacho - Last Filed: 11/24/21 19:38> Vital Signs 11/24/21 11/24/21 11/24/21 13:26 17:07 18:59 Temperature 99.1 F 98.4 F Pulse Rate 111 H 81 82 Respiratory 20 18 16 Rate Blood Pressure 103/76 99/69 91/68 O2 Sat by Pulse 94 L 95 97 Oximetry - Reevaluation(s) Reevaluation #1: 11/24/21 1500 Care signed out at shift change to Dr. Camacho. (August Pastrana) 11/24/21 19:06 Patient states that she continues to feel nauseated, and patient continues to have bouts of emesis while in the ED. Patient is aware of her test results, and she requests/agrees with hospital admission at this time. Patient denies development of any new symptoms while in the ED. Patient's abdomen is currently soft and without any surgical signs on examination. 11/24/21 19:33 Case, H&P, test results and ED management thus far were discussed with Dr. Shaylee cee. He accepts hospital admission. He has no further recommendations at this time. (Ephraim Camacho) Medical Decision Making - Lab Data Result diagrams: 11/24/21 14:16 11/24/21 14:16 <August Pastrana - Last Filed: 11/24/21 14:54> - Lab Data Result diagrams: 11/24/21 14:16 11/24/21 14:16 <Ephraim Camacho - Last Filed: 11/24/21 19:38> - Medical Decision Making Patient was endorsed to me by Dr. Pastrana (secondary to shift change) with the patient's CT imaging still pending. Patient continues to have nausea/vomiting despite IV fluids and IV antiemetic medication being given in the ED. Patient's labs show mild hypokalemia. Patient's CT abdomen/pelvis with IV contrast shows no acute abnormality. Patient has a nonsurgical abdominal exam. Given the patient's persisting symptoms, will admit the patient to the hospital for further management and evaluation. Dr. Brennan has accepted hospital admission. (Ephraim Camacho) - Lab Data Lab Results 11/24/21 11/24/21 11/24/21 Range/Units 14:16 14:16 14:16 WBC 10.0 (3.8-10.6) k/uL RBC 4.14 (3.80-5.40) m/uL Hgb 13.1 (11.4-16.0) gm/dL Hct 38.4 (34.0-46.0) % MCV 93.0 (80.0-100.0) fL MCH 31.8 (25.0-35.0) pg MCHC 34.2 (31.0-37.0) g/dL RDW 13.6 (11.5-15.5) % Plt Count 350 (150-450) k/uL MPV 7.7 Neutrophils % 79 % Lymphocytes % 12 % Monocytes % 6 % Eosinophils % 2 % Basophils % 0 % Neutrophils # 8.0 H (1.3-7.7) k/uL Lymphocytes # 1.2 (1.0-4.8) k/uL Monocytes # 0.6 (0-1.0) k/uL Eosinophils # 0.2 (0-0.7) k/uL Basophils # 0.0 (0-0.2) k/uL PT 12.1 H (9.0-12.0) sec INR 1.1 (<1.2) APTT 26.5 (22.0-30.0) sec Sodium 134 L (137-145) mmol/L Potassium 3.1 L (3.5-5.1) mmol/L Chloride 93 L (98-107) mmol/L Carbon Dioxide 33 H (22-30) mmol/L Anion Gap 8 mmol/L BUN 10 (7-17) mg/dL Creatinine 0.94 (0.52-1.04) mg/dL Est GFR (CKD-EPI)AfAm 86 (>60 ml/min/1.73 sqM) Est GFR (CKD-EPI)NonAf 74 (>60 ml/min/1.73 sqM) Glucose 189 H (74-99) mg/dL Plasma Lactic Acid Scotty (0.7-2.0) mmol/L Calcium 8.0 L (8.4-10.2) mg/dL Total Bilirubin 1.6 H (0.2-1.3) mg/dL AST 57 H (14-36) U/L ALT 18 (4-34) U/L Alkaline Phosphatase 169 H (38-126) U/L Total Protein 7.8 (6.3-8.2) g/dL Albumin 3.6 (3.5-5.0) g/dL Amylase 34 (30-110) U/L Lipase 97 (23-300) U/L Urine Color Urine Appearance (Clear) Urine pH (5.0-8.0) Ur Specific [place] (1.001-1.035) Urine Protein (Negative) Urine Glucose (UA) (Negative) Urine Ketones (Negative) Urine Blood (Negative) Urine Nitrite (Negative) Urine Bilirubin (Negative) Urine Urobilinogen (<2.0) mg/dL Ur Leukocyte Esterase (Negative) Urine RBC (0-5) /hpf Urine WBC (0-5) /hpf Ur Squamous Epith Cells (0-4) /hpf Urine Mucus (None) /hpf Urine HCG, Qual (Not Detectd) Coronavirus (PCR) (Not Detectd) 11/24/21 11/24/21 11/24/21 Range/Units 14:16 14:16 18:05 WBC (3.8-10.6) k/uL RBC (3.80-5.40) m/uL Hgb (11.4-16.0) gm/dL Hct (34.0-46.0) % MCV (80.0-100.0) fL MCH (25.0-35.0) pg MCHC (31.0-37.0) g/dL RDW (11.5-15.5) % Plt Count (150-450) k/uL MPV Neutrophils % % Lymphocytes % % Monocytes % % Eosinophils % % Basophils % % Neutrophils # (1.3-7.7) k/uL Lymphocytes # (1.0-4.8) k/uL Monocytes # (0-1.0) k/uL Eosinophils # (0-0.7) k/uL Basophils # (0-0.2) k/uL PT (9.0-12.0) sec INR (<1.2) APTT (22.0-30.0) sec Sodium (137-145) mmol/L Potassium (3.5-5.1) mmol/L Chloride (98-107) mmol/L Carbon Dioxide (22-30) mmol/L Anion Gap mmol/L BUN (7-17) mg/dL Creatinine (0.52-1.04) mg/dL Est GFR (CKD-EPI)AfAm (>60 ml/min/1.73 sqM) Est GFR (CKD-EPI)NonAf (>60 ml/min/1.73 sqM) Glucose (74-99) mg/dL Plasma Lactic Acid Scotty 1.7 (0.7-2.0) mmol/L Calcium (8.4-10.2) mg/dL Total Bilirubin (0.2-1.3) mg/dL AST (14-36) U/L ALT (4-34) U/L Alkaline Phosphatase (38-126) U/L Total Protein (6.3-8.2) g/dL Albumin (3.5-5.0) g/dL Amylase (30-110) U/L Lipase (23-300) U/L Urine Color Yellow Urine Appearance Clear (Clear) Urine pH 6.5 (5.0-8.0) Ur Specific [place] >1.050 H (1.001-1.035) Urine Protein Trace H (Negative) Urine Glucose (UA) Negative (Negative) Urine Ketones Negative (Negative) Urine Blood Small H (Negative) Urine Nitrite Positive H (Negative) Urine Bilirubin Negative (Negative) Urine Urobilinogen 2.0 (<2.0) mg/dL Ur Leukocyte Esterase Negative (Negative) Urine RBC 5 (0-5) /hpf Urine WBC 4 (0-5) /hpf Ur Squamous Epith Cells 13 H (0-4) /hpf Urine Mucus Rare H (None) /hpf Urine HCG, Qual (Not Detectd) Coronavirus (PCR) Not Detected (Not Detectd) 11/24/21 Range/Units 18:15 WBC (3.8-10.6) k/uL RBC (3.80-5.40) m/uL Hgb (11.4-16.0) gm/dL Hct (34.0-46.0) % MCV (80.0-100.0) fL MCH (25.0-35.0) pg MCHC (31.0-37.0) g/dL RDW (11.5-15.5) % Plt Count (150-450) k/uL MPV Neutrophils % % Lymphocytes % % Monocytes % % Eosinophils % % Basophils % % Neutrophils # (1.3-7.7) k/uL Lymphocytes # (1.0-4.8) k/uL Monocytes # (0-1.0) k/uL Eosinophils # (0-0.7) k/uL Basophils # (0-0.2) k/uL PT (9.0-12.0) sec INR (<1.2) APTT (22.0-30.0) sec Sodium (137-145) mmol/L Potassium (3.5-5.1) mmol/L Chloride (98-107) mmol/L Carbon Dioxide (22-30) mmol/L Anion Gap mmol/L BUN (7-17) mg/dL Creatinine (0.52-1.04) mg/dL Est GFR (CKD-EPI)AfAm (>60 ml/min/1.73 sqM) Est GFR (CKD-EPI)NonAf (>60 ml/min/1.73 sqM) Glucose (74-99) mg/dL Plasma Lactic Acid Scotty (0.7-2.0) mmol/L Calcium (8.4-10.2) mg/dL Total Bilirubin (0.2-1.3) mg/dL AST (14-36) U/L ALT (4-34) U/L Alkaline Phosphatase (38-126) U/L Total Protein (6.3-8.2) g/dL Albumin (3.5-5.0) g/dL Amylase (30-110) U/L Lipase (23-300) U/L Urine Color Urine Appearance (Clear) Urine pH (5.0-8.0) Ur Specific [place] (1.001-1.035) Urine Protein (Negative) Urine Glucose (UA) (Negative) Urine Ketones (Negative) Urine Blood (Negative) Urine Nitrite (Negative) Urine Bilirubin (Negative) Urine Urobilinogen (<2.0) mg/dL Ur Leukocyte Esterase (Negative) Urine RBC (0-5) /hpf Urine WBC (0-5) /hpf Ur Squamous Epith Cells (0-4) /hpf Urine Mucus (None) /hpf Urine HCG, Qual Not Detected (Not Detectd) Coronavirus (PCR) (Not Detectd) - Radiology Data CT abdomen/pelvis with IV contrast: Fatty infiltration of the liver and hepatic megaly. No acute abnormality in the abdomen pelvis. (Ephraim Camacho) Disposition <August Pastrana Smitha - Last Filed: 11/24/21 14:54> Is patient prescribed a controlled substance at d/c from ED?: No Time of Disposition: 19:38 <Ephraim Camacho - Last Filed: 11/24/21 19:38> Clinical Impression: Nausea & vomiting, Abdominal pain, Hypokalemia Disposition: ADMITTED IP TO THIS HOSP Condition: Stable Referrals: Kacey Brennan MD [Primary Care Provider] - 1-2 days
--- NOTE | 2021-11-24 14:30 | XR ---
EXAMINATION TYPE: XR KUB DATE OF EXAM: 11/24/2021 COMPARISON: NONE HISTORY: Vomiting and weakness TECHNIQUE: 2 views upright FINDINGS: There is no sign of intestinal obstruction or pneumoperitoneum. Fecal pattern is normal. Th ere are clips from cholecystectomy. There are clips from tubal ligation. Lung bases are clear. IMPRESSION: Nonacute abdomen.
[2021-11-24 14:32] LABS: Basophils % (A) 0 %; Eosinophils # (A) 0.2 k/uL (0-0.7); Eosinophils % (A) 2 %; HCT 38.4 % (34.0-46.0); HGB 13.1 gm/dL (11.4-16.0); Lymphocytes # (A) 1.2 k/uL (1.0-4.8); Lymphocytes % (A) 12 %; MCH 31.8 pg (25.0-35.0); MCHC 34.2 g/dL (31.0-37.0); Mean Platelet Volume 7.7; Monocytes # (A) 0.6 k/uL (0-1.0); Monocytes % (A) 6 %; Neutrophils % (A) 79 %; Platelet Count 350 k/uL (150-450); RBC 4.14 m/uL (3.80-5.40); RDW 13.6 % (11.5-15.5)
[2021-11-24 14:36] LABS: Albumin 3.6 g/dL (3.5-5.0); INR 1.1 (<1.2); Partial Thromboplastin Time 26.5 sec (22.0-30.0); Prothrombin Time 12.1 sec (9.0-12.0); Total Bilirubin 1.6 mg/dL (0.2-1.3); Total Protein 7.8 g/dL (6.3-8.2)
[2021-11-24 14:51] LABS: Potassium 3.1 mmol/L (3.5-5.1)
--- NOTE | 2021-11-24 15:45 | CT ---
EXAMINATION TYPE: CT abdomen pelvis w con DATE OF EXAM: 11/24/2021 COMPARISON: 07/05/2020 HISTORY: mid abd pian and vomiting CT DLP: 1564.4 mGycm Automated exposure control for dose reduction was used. CONTRAST: Performed with IV Contrast, patient injected with 100 mL of Isovue 300. Lung bases are clear of consolidation. There is minimal subsegmental atelectasis. There is no pleural effusion. Heart size is normal. There is no pericardial effusion. There is some fatty infiltration of the liver. There are clips from cholecystectomy. The bile ducts a re not dilated. Spleen is intact. The stomach is intact. There is no evidence of pancreatic mass. There is no adrenal mass. Kidneys show satisfactory contrast opacification. There is no hydronephrosi s. Bladder distends smoothly. There is no inguinal hernia. There are clips from tubal ligation. Uterus is retroflexed. Lumbar vertebrae have normal alignment. Posterior elements are intact. Disc sp aces are normal. Bony pelvis is intact. The hip joints are intact. There is no evidence of pelvic mas s. There is no free fluid in the pelvis. Appendix not seen. No sign of thickened appendix. There is no mesenteric edema. There is no ascites or free air. There is no bowel obstruction. Liver i s moderately enlarged and measures 26 cm. IMPRESSION: Fatty infiltration of the liver and hepatic megaly. No acute abnormality in the abdomen pelvis.
[2021-11-24] MEDS ORDERED: POTASSIUM CHLORIDE ER 20 MEQ TAB.ER PO STA (16:18)
[2021-11-24] MEDS ORDERED: SODIUM CHLORIDE 0.9% 1,000 ML IV ONE (17:00)
[2021-11-24 18:24] LABS: Appearance,Urine Clear (Clear); Bilirubin,Urine Negative (Negative); Blood,Urine Small (Negative); Color,Urine Yellow; Glucose,Urine (UA) Negative (Negative); Ketones,Urine Negative (Negative); Leukocyte Esterase,Urine Negative (Negative); Mucus,Urine Rare /hpf; Nitrite,Urine Positive (Negative); PH, Urine 6.5 (5.0-8.0); Protein,Urine Trace (Negative); RBC,Urine 5 /hpf (0-5); Squamous Epithelial Cell,Urine 13 /hpf (0-4); WBC,Urine 4 /hpf (0-5)
[2021-11-24 18:45] LABS: Specific Gravity,Urine >1.050 (1.001-1.035)
[2021-11-24] MEDS ORDERED: MORPHINE SULFATE 4 MG/ML SYRINGE IV PRN (19:38)
[2021-11-24] MEDS ORDERED: NALOXONE 0.4 MG/ML 1 ML VIAL IV PRN (19:38)
[2021-11-24] MEDS ORDERED: ONDANSETRON 4 MG/2 ML VIAL IVP PRN (19:38)
[2021-11-24] MEDS: SODIUM CHLORIDE 0.9% 1,000 ML IV SCH (20:12)
[2021-11-24] MEDS: metFORMIN 500 MG TAB PO SCH (20:12)
[2021-11-24] MEDS ORDERED: PANTOPRAZOLE 40 MG TABLET PO SCH (21:00)
[2021-11-25] MEDS: ONDANSETRON 4 MG/2 ML VIAL IVP PRN ×3 (03:19→15:34)
[2021-11-25 07:10] LABS: Glucose,Whole Blood 110 mg/dL (75-99)
[2021-11-25] MEDS: SODIUM CHLORIDE 0.9% 1,000 ML IV SCH ×2 (07:30→22:43)
[2021-11-25] MEDS: PANTOPRAZOLE 40 MG/10 ML VIAL IVP SCH (07:30)
[2021-11-25] MEDS: metFORMIN 500 MG TAB PO SCH (07:30)
--- NOTE | 2021-11-25 10:42 | P.HPIM ---
History of Present Illness H&P Date: 11/25/21 Chief Complaint: Nausea vomiting This is a 46-year-old female patient who presented to the ER with concerns of ongoing nausea and vomiting. Patient reports that she was diagnosed with COVID- 19 at the beginning of November. Initial symptoms were headache. Patient states that nausea and vomiting have been going on for approximately 2 weeks. Patient denies alcohol use or change in diet. Patient does have past medical history of seizure disorder with last seizure at age 18 not currently on any medication, anxiety, depression, diabetes mellitus type 2 and ex-smoker. COVID- 19 PCR was negative. KUB x-ray showing nonacute abdomen. CT of abdomen and pelvis completed showing fatty infiltration of the liver and hepatomegaly no acute abnormality of the abdomen pelvis. . Amylase and lipase within normal limits. AST 57, ALT 18 and alkaline phosphatase 169. Potassium low at 3.1. Urine hCG negative. At this time patient will be admitted. Patient continuing to have nausea and vomiting despite Zofran and IV fluid. Will add Compazine. Surgical services also consulted. Ultrasound of abdomen ordered. Patient denies chest pain. Patient denies shortness of breath. Patient denies any urinary burning or frequency Review of Systems please refer to HPI otherwise unremarkable Past Medical History Past Medical History: Seizure Disorder Additional Past Medical History / Comment(s): hx petit mal with last known seizure age 18,. HEAVY, PAINFUL PERIODS. migraines History of Any Multi-Drug Resistant Organisms: MRSA Date of last positivie culture/infection: 2009 MDRO Source:: forehead Past Surgical History: Appendectomy, Section, Cholecystectomy, Tubal Ligation Additional Past Surgical History / Comment(s): D & C, tracheotomy as a child, C- SEC X 3, COLONOSCOPY/EGD X2 Past Anesthesia/Blood Transfusion Reactions: No Reported Reaction Past Psychological History: Anxiety, Depression Smoking Status: Former smoker Past Alcohol Use History: Occasional Additional Past Alcohol Use History / Comment(s): QUIT SMOKING 2014 Past Drug Use History: None Reported - Past Family History Mother Family Medical History: Cancer Additional Family Medical History / Comment(s): COLON Medications and Allergies Home Medications Medication Instructions Recorded Confirmed Type Ferrous Sulfate [Feosol] 325 mg PO DAILY 30 Days #30 tab 07/12/20 11/24/21 Rx Pantoprazole Sodium [Protonix] 40 mg PO BID #60 tablet. 07/12/20 11/24/21 Rx Sucralfate [Carafate] 1 gm PO AC-TID #21 tab 07/12/20 11/24/21 Rx Fluticasone/Vilanterol [Breo 1 puff INHALATION RT-DAILY 11/24/21 11/24/21 History Ellipta 200-25 Mcg Inhaler] metFORMIN HCL 500 mg PO BID 11/24/21 11/24/21 History Allergies Allergy/AdvReac Type Severity Reaction Status Date / Time sulfamethoxazole Allergy Nausea & Verified 11/24/21 18:34 [From Bactrim] Vomiting trimethoprim [From Bactrim] Allergy Nausea & Verified 11/24/21 18:34 Vomiting Physical Exam Vitals: Vital Signs Temp Pulse Pulse Resp BP BP Pulse Ox 11/25/21 07:00 98.4 F 69 18 101/68 94 L 11/25/21 01:01 98.0 F 84 14 95/64 96 11/24/21 21:28 98.4 F 75 16 100/68 95 11/24/21 20:14 81 18 114/74 96 11/24/21 18:59 82 16 91/68 97 11/24/21 17:07 98.4 F 81 18 99/69 95 11/24/21 13:26 99.1 F 111 H 20 103/76 94 L Intake and Output 11/24/21 11/25/21 11/25/21 22:59 06:59 14:59 Intake Total 90 Output Total 200 Balance -200 90 Intake: Oral 90 Output: Emesis 200 Other: # Voids 3 Weight 107.955 kg Head normocephalic Neck supple Lungs clear to auscultation bilaterally no wheezing or crackles Heart regular rate and rhythm S1-S2, no rub or gallop Abdomen is soft. Tender upper quadrant to palpation Extremities no edema Neuro alert and orientated to 3 Results CBC & Chem 7: 11/24/21 14:16 11/24/21 14:16 Labs: Abnormal Lab Results - Last 24 Hours (Table) 11/24/21 11/24/21 11/24/21 Range/Units 14:16 14:16 14:16 Neutrophils # 8.0 H (1.3-7.7) k/uL PT 12.1 H (9.0-12.0) sec Sodium 134 L (137-145) mmol/L Potassium 3.1 L (3.5-5.1) mmol/L Chloride 93 L (98-107) mmol/L Carbon Dioxide 33 H (22-30) mmol/L Glucose 189 H (74-99) mg/dL POC Glucose (mg/dL) (75-99) mg/dL Calcium 8.0 L (8.4-10.2) mg/dL Total Bilirubin 1.6 H (0.2-1.3) mg/dL AST 57 H (14-36) U/L Alkaline Phosphatase 169 H (38-126) U/L Ur Specific [place] (1.001-1.035) Urine Protein (Negative) Urine Blood (Negative) Urine Nitrite (Negative) Ur Squamous Epith Cells (0-4) /hpf Urine Mucus (None) /hpf 11/24/21 11/25/21 Range/Units 18:05 06:45 Neutrophils # (1.3-7.7) k/uL PT (9.0-12.0) sec Sodium (137-145) mmol/L Potassium (3.5-5.1) mmol/L Chloride (98-107) mmol/L Carbon Dioxide (22-30) mmol/L Glucose (74-99) mg/dL POC Glucose (mg/dL) 110 H (75-99) mg/dL Calcium (8.4-10.2) mg/dL Total Bilirubin (0.2-1.3) mg/dL AST (14-36) U/L Alkaline Phosphatase (38-126) U/L Ur Specific [place] >1.050 H (1.001-1.035) Urine Protein Trace H (Negative) Urine Blood Small H (Negative) Urine Nitrite Positive H (Negative) Ur Squamous Epith Cells 13 H (0-4) /hpf Urine Mucus Rare H (None) /hpf Thrombosis Risk Factor Assmnt - Choose All That Apply Any of the Below Risk Factors Present?: Yes Each Factor Represents 1 point: Age 41-60 years, Obesity (BMI >25) Other Risk Factors: No Other congenital or acquired thrombophilia - If yes, enter type in comment: No Thrombosis Risk Factor Assessment Total Risk Factor Score: 2 Thrombosis Risk Factor Assessment Level: Low Risk Assessment and Plan Assessment: 1. Intractable nausea and vomiting. KUB negative CT of abdomen and pelvis completed showing fatty infiltration of the liver and hepatic megaly no acute abnormality in the abdomen and pelvis. Will order ultrasound of abdomen. maintained on Compazine and Zofran. surgical service is consulted 2. Recent COVID-19 infection. PCR negative 3. History of seizures not currently on medication last seizure at age 18 4. Diabetes mellitus type 2 we'll hold patient's home dose of metformin and add sliding scale coverage 5. Hypokalemia. Repeat labs ordered 6. History of anxiety and depression DVT prophylaxis Lovenox. GI prophylaxis Protonix Ultrasound of abdomen ordered Surgical service is consulted Repeat labs ordered Time with Patient: Greater than 30 (Greater than 60% of the total time spent in counseling and coordination of care)
[2021-11-25 10:56] LABS: Basophils # (A) 0.01 X 10*3/uL (0.00-0.10); Basophils % (A) 0.1 %; Eosinophils # (A) 0.16 X 10*3/uL (0.04-0.35); Eosinophils % (A) 2.1 %; HCT 36.3 % (37.2-46.3); HGB 11.6 g/dL (12.0-15.0); Immature Grans, Automated 0.6 %; Lymphocytes # (A) 1.45 X 10*3/uL (0.90-5.00); Lymphocytes % (A) 18.6 %; MCH 30.6 pg (27.0-32.0); MCV 95.8 fL (80.0-97.0); Mean Platelet Volume 9.9 fL (9.5-12.2); Monocytes # (A) 0.55 X 10*3/uL (0.20-1.00); Monocytes % (A) 7.1 %; NRBC Per 100 WBC 0 /100 WBCS (0.0-0.0); Neutrophils # (A) 5.57 X 10*3/uL (1.80-7.70); Neutrophils % (A) 71.5 %; Platelet Count 282 X 10*3/uL (140-440); RBC 3.79 X 10*6/uL (4.10-5.20); RDW 13.2 % (11.5-14.5); WBC 7.79 X 10*3/uL (4.50-10.00)
[2021-11-25 11:06] LABS: African American GFR (CKD) 90.1 (60.0-200.0); Albumin 3.1 g/dL (3.8-4.9); Albumin/Globulin Ratio 0.94 (1.60-3.17); Anion Gap 13.6 mmol/L (10.00-18.00); BUN/Creat Ratio 7.11 Ratio (12.00-20.00); Blood Urea Nitrogen 6.4 mg/dL (9.0-27.0); Calcium 7.9 mg/dL (8.7-10.3); Carbon Dioxide 28.4 mmol/L (20.0-27.5); Globulin 3.3 g/dL (1.6-3.3); Non-African American GFR(CKD) 77.8 (60.0-200.0); Potassium 3.3 mmol/L (3.5-5.5); Total Bilirubin 0.7 mg/dL (0.30-1.20); Total Protein 6.4 g/dL (6.2-8.2)
[2021-11-25] MEDS ORDERED: Potassium Replacement Protocol 1 EACH MISC MISCELLANE PRN (11:31)
[2021-11-25 11:46] LABS: Glucose,Whole Blood 144 mg/dL (75-99)
[2021-11-25] MEDS: PROCHLORPERAZINE INJ 10 MG/2 ML VIAL IVP PRN ×2 (11:59→19:55)
[2021-11-25] MEDS: POTASSIUM CHLORIDE 10 MEQ in WATER FOR INJECTION 1 100ML.BAG IVPB SCH ×4 (12:00→16:40)
[2021-11-25] MEDS: INSULIN ASPART (NovoLOG) 100 UNIT/ML VIAL SQ SCH ×3 (12:00→19:55)
--- NOTE | 2021-11-25 14:13 | P.GSCN ---
History of Present Illness Consult date: 11/25/21 History of present illness: REASON FOR CONSULTATION: Intractable nausea and vomiting HISTORY OF PRESENT ILLNESS: The patient is a 46 year old female with morbid obesity, BMI 43.5 including prior cholecystectomy presents with 2.5 week history of nausea with vomiting. In the past, she had seen Dr. Ibarra and had nausea and vomiting. She denies current aggravating factors. No recent EGD in the past year. General surgery is consulted for intractable nausea and vomiting. At the time of my evaluation, she denies current abdominal pain. PAST MEDICAL HISTORY: See list and reviewed PAST SURGICAL HISTORY: See list and reviewed MEDICATIONS: See list and reviewed ALLERGIES: See list and reviewed SOCIAL HISTORY: See list and reviewed FAMILY HISTORY: See list and reviewed REVIEW OF ORGAN SYSTEMS: CONSTITUTIONAL: No fevers or chills. Has morbid obesity, BMI 43.5 EYES: Denies any trouble with vision. No glasses. HEENT: No difficulties with hearing. No nosebleeds. No difficulty swallowing. RESPIRATORY: Denies pneumonia. Denies any troubles with breathing or dyspnea on exertion. CARDIOVASCULAR: Denies any chest pain, palpitations, or recent heart attacks. GASTROINTESTINAL: Denies fatty food intolerance. Denies change in bowel habits and gas bloat. Has gastroesophageal reflux disease. GENITOURINARY: Denies any blood in urine or increased urinary frequency. History of heavy menses. NEUROLOGICAL: Denies any numbness or tingling along the distal extremities. Has seizure disorders or headaches. MUSCULOSKELETAL: Denies any back pain, stiffness or joint arthritis. SKIN: No current skin cancer. No rash. PSYCHIATRIC: Has anxiety and depression. ENDOCRINE: Denies current thyroid disorders. Has diabetes type 2. HEME/LYMPHATIC: Denies any lumps and bumps around the neck. No recent deep venous thrombosis. Has iron deficiency anemia ALLERGY/IMMUNOLOGY: No immunoglobulin therapy. No immune deficiencies. BREAST: Denies current breast lumps, pain or nipple discharge. PHYSICAL EXAM: VITALS: Reviewed CONSTITUTIONAL: Well developed and in no acute distress. EYES: Conjuctivae without sclera icterus. Extraocular movements grossly i ntact. HEAD, EARS, NOSE, THROAT: Moist buccal mucosa. Head is atraumatic, normocephalic. Hears conversational speech. No nasal drainage. NECK: Supple. No JV distention. No thyroidomegaly. RESPIRATORY: Non-labored respirations and equal bilateral excursions. No gross wheezes. CARDIOVASCULAR: Regular rate and rhythm. Extremities without moderate edema. Palpable 2+ radial pulses. ABDOMEN: Protuberant. LYMPH: No neck lymphadenopathy. MUSCULOSKELETAL: Nail and fingers with good capillary refill. SKIN: Warm and well perfused with good skin turgor. NEUROLOGIC: Cranial nerves II through XII grossly intact. Sensation upper and extremities intact. No focal or lateralizing signs. PSYCH: Appropriate affect. Alert and oriented to person, place and time. Displays appropriate insight. CLINCAL LABS: Reviewed. WBC normal 7.79. Hemoglobin 11.6 with anemia. AST and alkaline phosphatase elevated. IMAGING: Independently reviewed CT of the abdomen and pelvis with enlarged liver. Presence of cholecystectomy clips. Presence of bilateral clipping for tubal ligation. No small bowel obstruction. No ascites. This is my independent interpretation. RADIOLOGY: Report reviewed. CT of the abdomen and pelvis of fatty liver disease and hepatomegaly. RECORDS: previous old records reviewed patient being seen by Dr. Ibarra at [facility] for intractable nausea and vomiting in 2019 ASSESSMENT: 1. Intractable nausea and vomiting 2. Hepatomegaly with fatty liver disease PLAN: 1. May benefit from upper endoscopy for intractable nausea and vomiting. 2. IV fluid hydration in the interim. ADVANCE DIRECTIVE: Thank you for this kind consultation. Past Medical History Past Medical History: Seizure Disorder Additional Past Medical History / Comment(s): hx nikki michael with last known seizure age 18,. HEAVY, PAINFUL PERIODS. migraines History of Any Multi-Drug Resistant Organisms: MRSA Year Discovered:: 2009 MDRO Source:: forehead Past Surgical History: Appendectomy, Section, Cholecystectomy, Tubal Ligation Additional Past Surgical History / Comment(s): D & C, tracheotomy as a child, C- SEC X 3, COLONOSCOPY/EGD X2 Past Anesthesia/Blood Transfusion Reactions: No Reported Reaction Past Psychological History: Anxiety, Depression Smoking Status: Former smoker Past Alcohol Use History: Occasional Additional Past Alcohol Use History / Comment(s): QUIT SMOKING 2014 Past Drug Use History: None Reported - Past Family History Mother Family Medical History: Cancer Additional Family Medical History / Comment(s): COLON Medications and Allergies Home Medications Medication Instructions Recorded Confirmed Type Ferrous Sulfate [Feosol] 325 mg PO DAILY 30 Days #30 tab 07/12/20 11/24/21 Rx Pantoprazole Sodium [Protonix] 40 mg PO BID #60 tablet.dr 07/12/20 11/24/21 Rx Sucralfate [Carafate] 1 gm PO AC-TID #21 tab 07/12/20 11/24/21 Rx Fluticasone/Vilanterol [Breo 1 puff INHALATION RT-DAILY 11/24/21 11/24/21 History Ellipta 200-25 Mcg Inhaler] metFORMIN HCL 500 mg PO BID 11/24/21 11/24/21 History Allergies Allergy/AdvReac Type Severity Reaction Status Date / Time sulfamethoxazole Allergy Nausea & Verified 11/24/21 18:34 [From Bactrim] Vomiting trimethoprim [From Bactrim] Allergy Nausea & Verified 11/24/21 18:34 Vomiting Surgical - Exam Vital Signs Temp Pulse Resp BP Pulse Ox 99.1 F 111 H 20 103/76 94 L 11/24/21 13:26 11/24/21 13:26 11/24/21 13:26 11/24/21 13:26 11/24/21 13:26 Results - Labs 11/25/21 08:00 11/25/21 08:00 Abnormal Lab Results - Last 24 Hours (Table) 11/24/21 11/24/21 11/24/21 Range/Units 14:16 14:16 14:16 RBC (4.10-5.20) X 10*6/uL Hgb (12.0-15.0) g/dL Hct (37.2-46.3) % Immature Gran # (0.00-0.04) X 10*3/uL Neutrophils # 8.0 H (1.3-7.7) k/uL PT 12.1 H (9.0-12.0) sec Sodium 134 L (137-145) mmol/L Potassium 3.1 L (3.5-5.1) mmol/L Chloride 93 L (98-107) mmol/L Carbon Dioxide 33 H (22-30) mmol/L BUN (9.0-27.0) mg/dL BUN/Creatinine Ratio (12.00-20.00) Ratio Glucose 189 H (74-99) mg/dL POC Glucose (mg/dL) (75-99) mg/dL Calcium 8.0 L (8.4-10.2) mg/dL Total Bilirubin 1.6 H (0.2-1.3) mg/dL AST 57 H (14-36) U/L Alkaline Phosphatase 169 H (38-126) U/L Albumin (3.8-4.9) g/dL Albumin/Globulin Ratio (1.60-3.17) g/dL Ur Specific [place] (1.001-1.035) Urine Protein (Negative) Urine Blood (Negative) Urine Nitrite (Negative) Ur Squamous Epith Cells (0-4) /hpf Urine Mucus (None) /hpf 11/24/21 11/25/21 11/25/21 Range/Units 18:05 06:45 08:00 RBC 3.79 L (4.10-5.20) X 10*6/uL Hgb 11.6 L (12.0-15.0) g/dL Hct 36.3 L (37.2-46.3) % Immature Gran # 0.05 H (0.00-0.04) X 10*3/uL Neutrophils # (1.3-7.7) k/uL PT (9.0-12.0) sec Sodium (137-145) mmol/L Potassium (3.5-5.1) mmol/L Chloride (98-107) mmol/L Carbon Dioxide (22-30) mmol/L BUN (9.0-27.0) mg/dL BUN/Creatinine Ratio (12.00-20.00) Ratio Glucose (74-99) mg/dL POC Glucose (mg/dL) 110 H (75-99) mg/dL Calcium (8.4-10.2) mg/dL Total Bilirubin (0.2-1.3) mg/dL AST (14-36) U/L Alkaline Phosphatase (38-126) U/L Albumin (3.8-4.9) g/dL Albumin/Globulin Ratio (1.60-3.17) g/dL Ur Specific [place] >1.050 H (1.001-1.035) Urine Protein Trace H (Negative) Urine Blood Small H (Negative) Urine Nitrite Positive H (Negative) Ur Squamous Epith Cells 13 H (0-4) /hpf Urine Mucus Rare H (None) /hpf 11/25/21 11/25/21 Range/Units 08:00 11:41 RBC (4.10-5.20) X 10*6/uL Hgb (12.0-15.0) g/dL Hct (37.2-46.3) % Immature Gran # (0.00-0.04) X 10*3/uL Neutrophils # (1.3-7.7) k/uL PT (9.0-12.0) sec Sodium (137-145) mmol/L Potassium 3.3 L (3.5-5.1) mmol/L Chloride (98-107) mmol/L Carbon Dioxide 28.4 H (22-30) mmol/L BUN 6.4 L (9.0-27.0) mg/dL BUN/Creatinine Ratio 7.11 L (12.00-20.00) Ratio Glucose 128 H (74-99) mg/dL POC Glucose (mg/dL) 144 H (75-99) mg/dL Calcium 7.9 L (8.4-10.2) mg/dL Total Bilirubin (0.2-1.3) mg/dL AST 41 H (14-36) U/L Alkaline Phosphatase 141 H (38-126) U/L Albumin 3.1 L (3.8-4.9) g/dL Albumin/Globulin Ratio 0.94 L (1.60-3.17) g/dL Ur Specific [place] (1.001-1.035) Urine Protein (Negative) Urine Blood (Negative) Urine Nitrite (Negative) Ur Squamous Epith Cells (0-4) /hpf Urine Mucus (None) /hpf Diabetes panel 11/24/21 11/25/21 Range/Units 14:16 08:00 Sodium 134 L 145 (137-145) mmol/L Potassium 3.1 L 3.3 L (3.5-5.1) mmol/L Chloride 93 L 103 (98-107) mmol/L Carbon Dioxide 33 H 28.4 H (22-30) mmol/L BUN 10 6.4 L (7-17) mg/dL Creatinine 0.94 0.9 (0.52-1.04) mg/dL Glucose 189 H 128 H (74-99) mg/dL Calcium 8.0 L 7.9 L (8.4-10.2) mg/dL AST 57 H 41 H (14-36) U/L ALT 18 15 (4-34) U/L Alkaline Phosphatase 169 H 141 H (38-126) U/L Total Protein 7.8 6.4 (6.3-8.2) g/dL Albumin 3.6 3.1 L (3.5-5.0) g/dL Calcium panel 11/24/21 11/25/21 Range/Units 14:16 08:00 Calcium 8.0 L 7.9 L (8.4-10.2) mg/dL Albumin 3.6 3.1 L (3.5-5.0) g/dL Pituitary panel 11/24/21 11/25/21 Range/Units 14:16 08:00 Sodium 134 L 145 (137-145) mmol/L Potassium 3.1 L 3.3 L (3.5-5.1) mmol/L Chloride 93 L 103 (98-107) mmol/L Carbon Dioxide 33 H 28.4 H (22-30) mmol/L BUN 10 6.4 L (7-17) mg/dL Creatinine 0.94 0.9 (0.52-1.04) mg/dL Glucose 189 H 128 H (74-99) mg/dL Calcium 8.0 L 7.9 L (8.4-10.2) mg/dL Adrenal panel 11/24/21 11/25/21 Range/Units 14:16 08:00 Sodium 134 L 145 (137-145) mmol/L Potassium 3.1 L 3.3 L (3.5-5.1) mmol/L Chloride 93 L 103 (98-107) mmol/L Carbon Dioxide 33 H 28.4 H (22-30) mmol/L BUN 10 6.4 L (7-17) mg/dL Creatinine 0.94 0.9 (0.52-1.04) mg/dL Glucose 189 H 128 H (74-99) mg/dL Calcium 8.0 L 7.9 L (8.4-10.2) mg/dL Total Bilirubin 1.6 H 0.70 (0.2-1.3) mg/dL AST 57 H 41 H (14-36) U/L ALT 18 15 (4-34) U/L Alkaline Phosphatase 169 H 141 H (38-126) U/L Total Protein 7.8 6.4 (6.3-8.2) g/dL Albumin 3.6 3.1 L (3.5-5.0) g/dL
--- NOTE | 2021-11-25 17:23 | US ---
EXAMINATION TYPE: US abdomen complete DATE OF EXAM: 11/25/2021 COMPARISON: NONE CLINICAL HISTORY: n/v. Nausea and vomiting with RUQ pain for the past 2 weeks, cholecystectomy EXAM MEASUREMENTS: Liver Length: 23.1 cm Gallbladder Wall: Surgically absent cm CBD: 0.6 cm Spleen: 12.7 x 5.0 cm Right Kidney: 11.2 x 6.3 x 4.3 cm Left Kidney: 9.9 x 3.8 x 4.2 cm Pancreas: Tail obscured by overlying bowel gas Liver: Increased attenuation, decreased visualization of vessels suggestive of fatty infiltrate Gallbladder: wnl Evidence for sonographic Blood's sign: No CBD: wnl Spleen: wnl Right Kidney: No hydronephrosis or masses seen Left Kidney: No hydronephrosis or masses seen Upper IVC: wnl Abd Aorta: wnl Limited exam due to patient body habitus. IMPRESSION: Cholecystectomy noted. No dilated ducts. There is probably some fatty infiltration of the liver.
[2021-11-25 17:27] LABS: Glucose,Whole Blood 104 mg/dL (75-99)
[2021-11-25 19:34] LABS: Glucose,Whole Blood 134 mg/dL (75-99)
[2021-11-26] MEDS: PROCHLORPERAZINE INJ 10 MG/2 ML VIAL IVP PRN ×3 (03:05→16:25)
[2021-11-26 06:56] LABS: Glucose,Whole Blood 103 mg/dL (75-99)
[2021-11-26] MEDS: INSULIN ASPART (NovoLOG) 100 UNIT/ML VIAL SQ SCH ×4 (07:19→20:33)
[2021-11-26] MEDS: PANTOPRAZOLE 40 MG/10 ML VIAL IVP SCH (08:42)
[2021-11-26] MEDS: ENOXAPARIN 40 MG/0.4 ML SYRINGE SQ SCH (08:42)
[2021-11-26 10:19] LABS: Basophils # (A) 0.02 X 10*3/uL (0.00-0.10); Basophils % (A) 0.3 %; Eosinophils # (A) 0.18 X 10*3/uL (0.04-0.35); Eosinophils % (A) 2.7 %; HGB 10.9 g/dL (12.0-15.0); Immature Grans, Automated 0.8 %; Lymphocytes # (A) 1.35 X 10*3/uL (0.90-5.00); Lymphocytes % (A) 20.6 %; MCH 30.5 pg (27.0-32.0); MCHC 31.1 g/dL (32.0-37.0); Mean Platelet Volume 10.7 fL (9.5-12.2); Monocytes # (A) 0.52 X 10*3/uL (0.20-1.00); Monocytes % (A) 7.9 %; NRBC Per 100 WBC 0 /100 WBCS (0.0-0.0); Neutrophils # (A) 4.44 X 10*3/uL (1.80-7.70); Neutrophils % (A) 67.7 %; Platelet Count 228 X 10*3/uL (140-440); RBC 3.57 X 10*6/uL (4.10-5.20); RDW 13.1 % (11.5-14.5); WBC 6.56 X 10*3/uL (4.50-10.00)
[2021-11-26 10:20] LABS: African American GFR (CKD) 103.9 (60.0-200.0); Albumin 2.8 g/dL (3.8-4.9); Anion Gap 13.8 mmol/L (10.00-18.00); BUN/Creat Ratio 6.38 Ratio (12.00-20.00); Blood Urea Nitrogen 5.1 mg/dL (9.0-27.0); Calcium 7.6 mg/dL (8.7-10.3); Carbon Dioxide 24.2 mmol/L (20.0-27.5); Globulin 2.8 g/dL (1.6-3.3); Non-African American GFR(CKD) 89.7 (60.0-200.0); Potassium 2.8 mmol/L (3.5-5.5); Total Bilirubin 0.6 mg/dL (0.30-1.20); Total Protein 5.6 g/dL (6.2-8.2)
[2021-11-26] MEDS ORDERED: Potassium Replacement Protocol 1 EACH MISC MISCELLANE PRN (10:27)
[2021-11-26] MEDS: POTASSIUM CHLORIDE ER 20 MEQ TAB.ER PO SCH ×4 (10:33→17:42)
[2021-11-26 11:42] LABS: Glucose,Whole Blood 128 mg/dL (75-99)
--- NOTE | 2021-11-26 12:13 | P.PN ---
<Zhanna Moses - Last Filed: 11/26/21 12:06> Subjective Progress Note Date: 11/26/21 CHIEF COMPLAINT: Abdominal pain with nausea and vomiting HISTORY OF PRESENT ILLNESS: This is a 46-year-old female with 2-1/2 weeks of nausea and vomiting. She's been complaining of abdominal pain. She reports that the pain is located in the lower abdomen and epigastric area. She reports that her pain is about same. Her last episode of vomiting was yesterday. She did have a loose stool. She reports having an EGD in July 2020 revealed gastritis and distal esophagitis. Patient is a prior history of cholecystectomy. Afebrile. WBC 6.5 HGB 10.9 platelets 228 sodium 142 potassium 2.8 creatinine 0.8 PHYSICAL EXAM: VITAL SIGNS: Reviewed. GENERAL: Well-developed in no acute distress. HEENT: No sclera icterus. Extraocular movements grossly intact. Moist buccal mucosa. Head is atraumatic, normocephalic. ABDOMEN: Soft. Tenderness to palpation of the epigastric and lower abdomen Neruro: alert and oriented. Cranial nerves II through XII grossly intact. ASSESSMENT: 1. Adominal pain with nausea and vomiting 2. Hypokalemia PLAN: - further recommendations forthcoming per surgeon -Keep patient nothing by mouth until seen by surgeon to discuss further plans of possible EGD -Continue to replace potassium -Check magnesium level -Continue antiemetics -Continue IV fluids Physician Clinic Receptionist note has been reviewed by physician. Signing provider agrees with the documented findings, assessment, and plan of care. Objective - Vital Signs Vital signs: Vital Signs Temp 98.4 F 11/26/21 07:00 Pulse 72 11/26/21 07:00 Resp 18 11/26/21 07:00 BP 118/82 11/26/21 07:00 Pulse Ox 93 L 11/26/21 07:00 Intake & Output 11/25/21 11/26/21 11/26/21 18:59 06:59 18:59 Intake Total 210 Balance 210 Intake: Oral 210 Other: # Voids 1 2 1 - Labs CBC & Chem 7: 11/26/21 05:54 11/26/21 05:54 Labs: Abnormal Lab Results - Last 24 Hours (Table) 11/25/21 11/25/21 11/26/21 Range/Units 17:20 19:31 05:54 RBC 3.57 L (4.10-5.20) X 10*6/uL Hgb 10.9 L (12.0-15.0) g/dL Hct 35.0 L (37.2-46.3) % MCV 98.0 H (80.0-97.0) fL MCHC 31.1 L (32.0-37.0) g/dL Immature Gran # 0.05 H (0.00-0.04) X 10*3/uL Potassium (3.5-5.5) mmol/L BUN (9.0-27.0) mg/dL BUN/Creatinine Ratio (12.00-20.00) Ratio POC Glucose (mg/dL) 104 H 134 H (75-99) mg/dL Calcium (8.7-10.3) mg/dL AST (13-35) U/L Total Protein (6.2-8.2) g/dL Albumin (3.8-4.9) g/dL Albumin/Globulin Ratio (1.60-3.17) g/dL 11/26/21 11/26/21 11/26/21 Range/Units 05:54 06:44 11:33 RBC (4.10-5.20) X 10*6/uL Hgb (12.0-15.0) g/dL Hct (37.2-46.3) % MCV (80.0-97.0) fL MCHC (32.0-37.0) g/dL Immature Gran # (0.00-0.04) X 10*3/uL Potassium 2.8 L (3.5-5.5) mmol/L BUN 5.1 L (9.0-27.0) mg/dL BUN/Creatinine Ratio 6.38 L (12.00-20.00) Ratio POC Glucose (mg/dL) 103 H 128 H (75-99) mg/dL Calcium 7.6 L (8.7-10.3) mg/dL AST 36 H (13-35) U/L Total Protein 5.6 L (6.2-8.2) g/dL Albumin 2.8 L (3.8-4.9) g/dL Albumin/Globulin Ratio 1.00 L (1.60-3.17) g/dL <Jael Ibarraony - Last Filed: 11/26/21 16:39> Subjective I have personally seen and examined the patient, reviewed the AQUATICS COORDINATOR /PAs history, exam and MDM and agree with the assessment and plan as written. Based on total visit time, I have performed more than 50% of the visit. As above: Patient says she feels better today. Minimal pain. Says she is hungry. Will begin clear liquids at this time. Possible EGD if symptoms of vomiting persist. Objective - Vital Signs Vital signs: Vital Signs Temp 98.4 F 11/26/21 15:00 Pulse 87 11/26/21 15:00 Resp 18 11/26/21 15:00 BP 114/83 11/26/21 15:00 Pulse Ox 98 11/26/21 15:00 Intake & Output 11/25/21 11/26/21 11/26/21 18:59 06:59 18:59 Intake Total 210 Balance 210 Intake: Oral 210 Other: # Voids 1 2 2 - Labs CBC & Chem 7: 11/26/21 05:54 11/26/21 15:56 Labs: Abnormal Lab Results - Last 24 Hours (Table) 11/25/21 11/25/21 11/26/21 Range/Units 17:20 19:31 05:54 RBC 3.57 L (4.10-5.20) X 10*6/uL Hgb 10.9 L (12.0-15.0) g/dL Hct 35.0 L (37.2-46.3) % MCV 98.0 H (80.0-97.0) fL MCHC 31.1 L (32.0-37.0) g/dL Immature Gran # 0.05 H (0.00-0.04) X 10*3/uL Potassium (3.5-5.5) mmol/L BUN (9.0-27.0) mg/dL BUN/Creatinine Ratio (12.00-20.00) Ratio POC Glucose (mg/dL) 104 H 134 H (75-99) mg/dL Calcium (8.7-10.3) mg/dL Magnesium (1.5-2.4) mg/dL AST (13-35) U/L Total Protein (6.2-8.2) g/dL Albumin (3.8-4.9) g/dL Albumin/Globulin Ratio (1.60-3.17) g/dL 11/26/21 11/26/21 11/26/21 Range/Units 05:54 05:54 06:44 RBC (4.10-5.20) X 10*6/uL Hgb (12.0-15.0) g/dL Hct (37.2-46.3) % MCV (80.0-97.0) fL MCHC (32.0-37.0) g/dL Immature Gran # (0.00-0.04) X 10*3/uL Potassium 2.8 L (3.5-5.5) mmol/L BUN 5.1 L (9.0-27.0) mg/dL BUN/Creatinine Ratio 6.38 L (12.00-20.00) Ratio POC Glucose (mg/dL) 103 H (75-99) mg/dL Calcium 7.6 L (8.7-10.3) mg/dL Magnesium 1.2 L (1.5-2.4) mg/dL AST 36 H (13-35) U/L Total Protein 5.6 L (6.2-8.2) g/dL Albumin 2.8 L (3.8-4.9) g/dL Albumin/Globulin Ratio 1.00 L (1.60-3.17) g/dL 11/26/21 11/26/21 Range/Units 11:33 15:56 RBC (4.10-5.20) X 10*6/uL Hgb (12.0-15.0) g/dL Hct (37.2-46.3) % MCV (80.0-97.0) fL MCHC (32.0-37.0) g/dL Immature Gran # (0.00-0.04) X 10*3/uL Potassium 3.1 L (3.5-5.5) mmol/L BUN (9.0-27.0) mg/dL BUN/Creatinine Ratio (12.00-20.00) Ratio POC Glucose (mg/dL) 128 H (75-99) mg/dL Calcium (8.7-10.3) mg/dL Magnesium (1.5-2.4) mg/dL AST (13-35) U/L Total Protein (6.2-8.2) g/dL Albumin (3.8-4.9) g/dL Albumin/Globulin Ratio (1.60-3.17) g/dL
[2021-11-26] MEDS: SODIUM CHLORIDE 0.9% 1,000 ML IV SCH (13:02)
[2021-11-26 17:22] LABS: Glucose,Whole Blood 152 mg/dL (75-99)
--- NOTE | 2021-11-26 19:12 | P.PN ---
Subjective Progress Note Date: 11/26/21 This is a 46-year-old female patient who presented to the ER with concerns of ongoing nausea and vomiting. Patient reports that she was diagnosed with COVID- 19 at the beginning of November. Initial symptoms were headache. Patient states that nausea and vomiting have been going on for approximately 2 weeks. Patient denies alcohol use or change in diet. Patient does have past medical history of seizure disorder with last seizure at age 18 not currently on any medication, anxiety, depression, diabetes mellitus type 2 and ex-smoker. COVID- 19 PCR was negative. KUB x-ray showing nonacute abdomen. CT of abdomen and pelvis completed showing fatty infiltration of the liver and hepatomegaly no acute abnormality of the abdomen pelvis. . Amylase and lipase within normal limits. AST 57, ALT 18 and alkaline phosphatase 169. Potassium low at 3.1. Urine hCG negative. At this time patient will be admitted. Patient continuing to have nausea and vomiting despite Zofran and IV fluid. Will add Compazine. Surgical services also consulted. Ultrasound of abdomen ordered. Patient denies chest pain. Patient denies shortness of breath. Patient denies any urinary burning or frequency On 11/26/2021 patient was seen and examined on the medical floor she is alert and oriented 3 in no apparent distress she is still complaining of severe nausea and episodes of vomiting. Today she has a low potassium of 3.1 after replacement yesterday she also has low magnesium of 1.2 at this time will corre ct potassium and magnesium with IV supplements awaiting decision by surgery whether patient need EGD continue with IV Zofran and IV Compazine with follow in a.m. Objective - Vital Signs Vital signs: Vital Signs Temp 98.4 F 11/26/21 15:00 Pulse 87 11/26/21 15:00 Resp 18 11/26/21 15:00 BP 114/83 11/26/21 15:00 Pulse Ox 98 11/26/21 15:00 Intake & Output 11/26/21 11/26/21 11/27/21 06:59 18:59 06:59 Intake Total 236 Balance 236 Intake: Oral 236 Other: # Voids 2 2 - Exam In general patient is alert and oriented x -3 in no distress HEENT head normocephalic and atraumatic Neck is supple no JVD no goiter no lymphadenopathy no carotid bruit Chest examination is clear to auscultation no crackles no wheezing Cardiac exam reveals regular heart sounds S1 and S2 no gallops no murmurs Abdomen is soft nontender no organomegaly with normal bowel sounds Extremity exam reveals no edema no cyanosis or clubbing Neurological examination reveals no gross focal deficits - Labs CBC & Chem 7: 11/26/21 05:54 11/26/21 15:56 Labs: Abnormal Lab Results - Last 24 Hours (Table) 11/25/21 11/26/21 11/26/21 Range/Units 19:31 05:54 05:54 RBC 3.57 L (4.10-5.20) X 10*6/uL Hgb 10.9 L (12.0-15.0) g/dL Hct 35.0 L (37.2-46.3) % MCV 98.0 H (80.0-97.0) fL MCHC 31.1 L (32.0-37.0) g/dL Immature Gran # 0.05 H (0.00-0.04) X 10*3/uL Potassium 2.8 L (3.5-5.5) mmol/L BUN 5.1 L (9.0-27.0) mg/dL BUN/Creatinine Ratio 6.38 L (12.00-20.00) Ratio POC Glucose (mg/dL) 134 H (75-99) mg/dL Calcium 7.6 L (8.7-10.3) mg/dL Magnesium (1.5-2.4) mg/dL AST 36 H (13-35) U/L Total Protein 5.6 L (6.2-8.2) g/dL Albumin 2.8 L (3.8-4.9) g/dL Albumin/Globulin Ratio 1.00 L (1.60-3.17) g/dL 11/26/21 11/26/21 11/26/21 Range/Units 05:54 06:44 11:33 RBC (4.10-5.20) X 10*6/uL Hgb (12.0-15.0) g/dL Hct (37.2-46.3) % MCV (80.0-97.0) fL MCHC (32.0-37.0) g/dL Immature Gran # (0.00-0.04) X 10*3/uL Potassium (3.5-5.5) mmol/L BUN (9.0-27.0) mg/dL BUN/Creatinine Ratio (12.00-20.00) Ratio POC Glucose (mg/dL) 103 H 128 H (75-99) mg/dL Calcium (8.7-10.3) mg/dL Magnesium 1.2 L (1.5-2.4) mg/dL AST (13-35) U/L Total Protein (6.2-8.2) g/dL Albumin (3.8-4.9) g/dL Albumin/Globulin Ratio (1.60-3.17) g/dL 11/26/21 11/26/21 Range/Units 15:56 17:20 RBC (4.10-5.20) X 10*6/uL Hgb (12.0-15.0) g/dL Hct (37.2-46.3) % MCV (80.0-97.0) fL MCHC (32.0-37.0) g/dL Immature Gran # (0.00-0.04) X 10*3/uL Potassium 3.1 L (3.5-5.5) mmol/L BUN (9.0-27.0) mg/dL BUN/Creatinine Ratio (12.00-20.00) Ratio POC Glucose (mg/dL) 152 H (75-99) mg/dL Calcium (8.7-10.3) mg/dL Magnesium (1.5-2.4) mg/dL AST (13-35) U/L Total Protein (6.2-8.2) g/dL Albumin (3.8-4.9) g/dL Albumin/Globulin Ratio (1.60-3.17) g/dL Assessment and Plan Assessment: 1. Intractable nausea and vomiting. KUB negative CT of abdomen and pelvis completed showing fatty infiltration of the liver and hepatic megaly no acute abnormality in the abdomen and pelvis. Will order ultrasound of abdomen. maintained on Compazine and Zofran. surgical service is consulted 2. Recent COVID-19 infection. PCR negative 3. History of seizures not currently on medication last seizure at age 18 4. Diabetes mellitus type 2 we'll hold patient's home dose of metformin and add sliding scale coverage 5. Severe electrolyte imbalance with hypomagnesemia and Hypokalemia. Due to intractable vomiting Patient receiving IV replacement of potassium and magnesium will recheck labs in a.m. 6. History of anxiety and depression DVT prophylaxis Lovenox. GI prophylaxis Protonix Ultrasound of abdomen ordered Surgical service is consulted Repeat labs ordered
[2021-11-26 20:25] LABS: Glucose,Whole Blood 123 mg/dL (75-99)
[2021-11-26] MEDS: MAGNESIUM SULFATE-D5W PMX 1 GM in DEXTROSE/WATER 1 100ML.BAG IVPB SCH ×2 (20:36→22:37)
[2021-11-27] MEDS: SODIUM CHLORIDE 0.9% 1,000 ML IV SCH ×2 (00:18→16:35)
[2021-11-27] MEDS: POTASSIUM CHLORIDE ER 20 MEQ TAB.ER PO SCH ×4 (00:18→13:12)
[2021-11-27] MEDS: PROCHLORPERAZINE INJ 10 MG/2 ML VIAL IVP PRN ×4 (01:34→23:54)
[2021-11-27 07:12] LABS: Glucose,Whole Blood 120 mg/dL (75-99)
[2021-11-27] MEDS: INSULIN ASPART (NovoLOG) 100 UNIT/ML VIAL SQ SCH ×4 (08:38→21:01)
[2021-11-27] MEDS: ENOXAPARIN 40 MG/0.4 ML SYRINGE SQ SCH (08:45)
[2021-11-27] MEDS: PANTOPRAZOLE 40 MG/10 ML VIAL IVP SCH (08:45)
[2021-11-27 09:05] LABS: Basophils # (A) 0.02 X 10*3/uL (0.00-0.10); Basophils % (A) 0.4 %; Eosinophils # (A) 0.21 X 10*3/uL (0.04-0.35); Eosinophils % (A) 3.8 %; HCT 33.5 % (37.2-46.3); HGB 10.5 g/dL (12.0-15.0); Immature Grans, Automated 0.9 %; Lymphocytes # (A) 1.11 X 10*3/uL (0.90-5.00); Lymphocytes % (A) 20.2 %; MCH 30.5 pg (27.0-32.0); MCHC 31.3 g/dL (32.0-37.0); MCV 97.4 fL (80.0-97.0); Mean Platelet Volume 10.2 fL (9.5-12.2); Monocytes # (A) 0.43 X 10*3/uL (0.20-1.00); Monocytes % (A) 7.8 %; NRBC Per 100 WBC 0 /100 WBCS (0.0-0.0); Neutrophils # (A) 3.68 X 10*3/uL (1.80-7.70); Neutrophils % (A) 66.9 %; Platelet Count 248 X 10*3/uL (140-440); RBC 3.44 X 10*6/uL (4.10-5.20); RDW 13.2 % (11.5-14.5)
[2021-11-27 09:19] LABS: African American GFR (CKD) 122.1 (60.0-200.0); Albumin 2.7 g/dL (3.8-4.9); BUN/Creat Ratio 4.14 Ratio (12.00-20.00); Blood Urea Nitrogen 2.9 mg/dL (9.0-27.0); Calcium 7.3 mg/dL (8.7-10.3); Globulin 2.7 g/dL (1.6-3.3); Non-African American GFR(CKD) 105.4 (60.0-200.0); Potassium 3.2 mmol/L (3.5-5.5); Total Bilirubin 0.4 mg/dL (0.30-1.20); Total Protein 5.4 g/dL (6.2-8.2)
[2021-11-27 09:26] LABS: Magnesium 1.9 mg/dL (1.5-2.4)
[2021-11-27] MEDS ORDERED: Potassium Replacement Protocol 1 EACH MISC MISCELLANE PRN (10:06)
--- NOTE | 2021-11-27 11:07 | P.PN ---
<DanielZhanna pierre - Last Filed: 11/27/21 11:03> Subjective Progress Note Date: 11/27/21 CHIEF COMPLAINT: Abdominal pain with nausea and vomiting HISTORY OF PRESENT ILLNESS: Patient started on clear liquids yesterday. She did report an episode of vomiting last night and this morning. However, she is not vomiting as frequent as she had been. She still has some epigastric abdominal pain. And that's about the same. She did have one low-dose stool last night. Afebrile WBC 5.50 hemoglobin 10.5 platelets 248 sodium 139 potassium 3.2 creatinine 0.7 magnesium 1. She had an EGD in July 2020 revealed gastritis and distal esophagitis. Patient is a prior history of cholecystectomy. Magnesium and potassium replaced yesterday. PHYSICAL EXAM: VITAL SIGNS: Reviewed. GENERAL: Well-developed in no acute distress. HEENT: No sclera icterus. Extraocular movements grossly intact. Moist buccal mucosa. Head is atraumatic, normocephalic. ABDOMEN: Soft. Tenderness to palpation of the epigastric area Neruro: alert and oriented. Cranial nerves II through XII grossly intact. ASSESSMENT: 1. Adominal pain with nausea and vomiting 2. Hypokalemia PLAN: -Advance diet to regular -Recommend EGD outpatient -Potassium being replaced by medicine service Physician Industrial Energy Engineer note has been reviewed by physician. Signing provider agrees with the documented findings, assessment, and plan of care. Objective - Vital Signs Vital signs: Vital Signs Temp 98.6 F 11/27/21 07:00 Pulse 83 11/27/21 07:00 Resp 20 11/27/21 08:53 BP 132/85 11/27/21 07:00 Pulse Ox 98 11/27/21 07:00 Intake & Output 11/26/21 11/27/21 11/27/21 18:59 06:59 18:59 Intake Total 236 Output Total 1 Balance 236 -1 Intake: Oral 236 Output: Emesis 1 Other: Voiding Method Toilet # Voids 2 1 - Labs CBC & Chem 7: 11/27/21 02:50 11/27/21 02:50 Labs: Abnormal Lab Results - Last 24 Hours (Table) 11/26/21 11/26/21 11/26/21 Range/Units 05:54 11:33 15:56 RBC (4.10-5.20) X 10*6/uL Hgb (12.0-15.0) g/dL Hct (37.2-46.3) % MCV (80.0-97.0) fL MCHC (32.0-37.0) g/dL Immature Gran # (0.00-0.04) X 10*3/uL Potassium 3.1 L (3.5-5.1) mmol/L BUN (9.0-27.0) mg/dL BUN/Creatinine Ratio (12.00-20.00) Ratio Glucose (70-110) mg/dL POC Glucose (mg/dL) 128 H (75-99) mg/dL Calcium (8.7-10.3) mg/dL Magnesium 1.2 L (1.5-2.4) mg/dL Total Protein (6.2-8.2) g/dL Albumin (3.8-4.9) g/dL Albumin/Globulin Ratio (1.60-3.17) g/dL 11/26/21 11/26/21 11/26/21 Range/Units 17:20 20:24 22:58 RBC (4.10-5.20) X 10*6/uL Hgb (12.0-15.0) g/dL Hct (37.2-46.3) % MCV (80.0-97.0) fL MCHC (32.0-37.0) g/dL Immature Gran # (0.00-0.04) X 10*3/uL Potassium 3.1 L (3.5-5.1) mmol/L BUN (9.0-27.0) mg/dL BUN/Creatinine Ratio (12.00-20.00) Ratio Glucose (70-110) mg/dL POC Glucose (mg/dL) 152 H 123 H (75-99) mg/dL Calcium (8.7-10.3) mg/dL Magnesium (1.5-2.4) mg/dL Total Protein (6.2-8.2) g/dL Albumin (3.8-4.9) g/dL Albumin/Globulin Ratio (1.60-3.17) g/dL 11/27/21 11/27/21 11/27/21 Range/Units 02:50 02:50 07:10 RBC 3.44 L (4.10-5.20) X 10*6/uL Hgb 10.5 L (12.0-15.0) g/dL Hct 33.5 L (37.2-46.3) % MCV 97.4 H (80.0-97.0) fL MCHC 31.3 L (32.0-37.0) g/dL Immature Gran # 0.05 H (0.00-0.04) X 10*3/uL Potassium 3.2 L (3.5-5.1) mmol/L BUN 2.9 L (9.0-27.0) mg/dL BUN/Creatinine Ratio 4.14 L (12.00-20.00) Ratio Glucose 157 H (70-110) mg/dL POC Glucose (mg/dL) 120 H (75-99) mg/dL Calcium 7.3 L (8.7-10.3) mg/dL Magnesium (1.5-2.4) mg/dL Total Protein 5.4 L (6.2-8.2) g/dL Albumin 2.7 L (3.8-4.9) g/dL Albumin/Globulin Ratio 1.00 L (1.60-3.17) g/dL <Lowell Ibarra - Last Filed: 11/27/21 16:47> Subjective I have personally seen and examined the patient, reviewed the CHOIR ACCOMPANIST /PAs history, exam and MDM and agree with the assessment and plan as written. Based on total visit time, I have performed more than 50% of the visit. As above: Patient says she has been unable to keep food down today. Options reviewed with patient. Will order upper GI small bowel series tomorrow. If that study is normal and patient still having issues recommend GI referral. Objective - Vital Signs Vital signs: Vital Signs Temp 98.3 F 11/27/21 14:39 Pulse 91 11/27/21 14:39 Resp 20 11/27/21 14:39 BP 116/71 11/27/21 14:39 Pulse Ox 98 11/27/21 14:39 Intake & Output 11/26/21 11/27/21 11/27/21 18:59 06:59 18:59 Intake Total 236 Output Total 1 Balance 236 -1 Intake: Oral 236 Output: Emesis 1 Other: Voiding Method Toilet # Voids 2 1 1 - Labs CBC & Chem 7: 11/27/21 02:50 11/27/21 02:50 Labs: Abnormal Lab Results - Last 24 Hours (Table) 11/26/21 11/26/21 11/26/21 Range/Units 17:20 20:24 22:58 RBC (4.10-5.20) X 10*6/uL Hgb (12.0-15.0) g/dL Hct (37.2-46.3) % MCV (80.0-97.0) fL MCHC (32.0-37.0) g/dL Immature Gran # (0.00-0.04) X 10*3/uL Potassium 3.1 L (3.5-5.1) mmol/L BUN (9.0-27.0) mg/dL BUN/Creatinine Ratio (12.00-20.00) Ratio Glucose (70-110) mg/dL POC Glucose (mg/dL) 152 H 123 H (75-99) mg/dL Calcium (8.7-10.3) mg/dL Total Protein (6.2-8.2) g/dL Albumin (3.8-4.9) g/dL Albumin/Globulin Ratio (1.60-3.17) g/dL 11/27/21 11/27/21 11/27/21 Range/Units 02:50 02:50 07:10 RBC 3.44 L (4.10-5.20) X 10*6/uL Hgb 10.5 L (12.0-15.0) g/dL Hct 33.5 L (37.2-46.3) % MCV 97.4 H (80.0-97.0) fL MCHC 31.3 L (32.0-37.0) g/dL Immature Gran # 0.05 H (0.00-0.04) X 10*3/uL Potassium 3.2 L (3.5-5.1) mmol/L BUN 2.9 L (9.0-27.0) mg/dL BUN/Creatinine Ratio 4.14 L (12.00-20.00) Ratio Glucose 157 H (70-110) mg/dL POC Glucose (mg/dL) 120 H (75-99) mg/dL Calcium 7.3 L (8.7-10.3) mg/dL Total Protein 5.4 L (6.2-8.2) g/dL Albumin 2.7 L (3.8-4.9) g/dL Albumin/Globulin Ratio 1.00 L (1.60-3.17) g/dL 11/27/21 11/27/21 Range/Units 11:51 16:38 RBC (4.10-5.20) X 10*6/uL Hgb (12.0-15.0) g/dL Hct (37.2-46.3) % MCV (80.0-97.0) fL MCHC (32.0-37.0) g/dL Immature Gran # (0.00-0.04) X 10*3/uL Potassium (3.5-5.1) mmol/L BUN (9.0-27.0) mg/dL BUN/Creatinine Ratio (12.00-20.00) Ratio Glucose (70-110) mg/dL POC Glucose (mg/dL) 159 H 134 H (75-99) mg/dL Calcium (8.7-10.3) mg/dL Total Protein (6.2-8.2) g/dL Albumin (3.8-4.9) g/dL Albumin/Globulin Ratio (1.60-3.17) g/dL
[2021-11-27 11:53] LABS: Glucose,Whole Blood 159 mg/dL (75-99)
[2021-11-27] MEDS: ONDANSETRON 4 MG/2 ML VIAL IVP PRN ×2 (14:46→20:04)
[2021-11-27] MEDS ORDERED: ACETAMINOPHEN TAB 325 MG TAB PO PRN (15:58)
[2021-11-27 16:40] LABS: Glucose,Whole Blood 134 mg/dL (75-99)
--- NOTE | 2021-11-27 18:23 | P.PN ---
Subjective Progress Note Date: 11/27/21 This is a 46-year-old female patient who presented to the ER with concerns of ongoing nausea and vomiting. Patient reports that she was diagnosed with COVID- 19 at the beginning of November. Initial symptoms were headache. Patient states that nausea and vomiting have been going on for approximately 2 weeks. Patient denies alcohol use or change in diet. Patient does have past medical history of seizure disorder with last seizure at age 18 not currently on any medication, anxiety, depression, diabetes mellitus type 2 and ex-smoker. COVID- 19 PCR was negative. KUB x-ray showing nonacute abdomen. CT of abdomen and pelvis completed showing fatty infiltration of the liver and hepatomegaly no acute abnormality of the abdomen pelvis. . Amylase and lipase within normal limits. AST 57, ALT 18 and alkaline phosphatase 169. Potassium low at 3.1. Urine hCG negative. At this time patient will be admitted. Patient continuing to have nausea and vomiting despite Zofran and IV fluid. Will add Compazine. Surgical services also consulted. Ultrasound of abdomen ordered. Patient denies chest pain. Patient denies shortness of breath. Patient denies any urinary burning or frequency On 11/26/2021 patient was seen and examined on the medical floor she is alert and oriented 3 in no apparent distress she is still complaining of severe nausea and episodes of vomiting. Today she has a low potassium of 3.1 after replacement yesterday she also has low magnesium of 1.2 at this time will corre ct potassium and magnesium with IV supplements awaiting decision by surgery whether patient need EGD continue with IV Zofran and IV Compazine with follow in a.m. On 11/27/2021 patient was seen and examined on the medical floor she is alert and oriented 3 in no apparent distress she is still complaining of nausea and had 1 episode of vomiting today. Potassium is still low and being replaced per protocol magnesium is up to 1.9 today after receiving 2 g of IV magnesium last night, at this time will continue with current management will check if surgery will proceed with EGD tomorrow otherwise possible discharge in the next 1-2 days Objective - Vital Signs Vital signs: Vital Signs Temp 98.6 F 11/27/21 07:00 Pulse 83 11/27/21 07:00 Resp 20 11/27/21 08:53 BP 132/85 11/27/21 07:00 Pulse Ox 98 11/27/21 07:00 Intake & Output 11/26/21 11/27/21 11/27/21 18:59 06:59 18:59 Intake Total 236 Output Total 1 Balance 236 -1 Intake: Oral 236 Output: Emesis 1 Other: Voiding Method Toilet # Voids 2 1 - Exam In general patient is alert and oriented x -3 in no distress HEENT head normocephalic and atraumatic Neck is supple no JVD no goiter no lymphadenopathy no carotid bruit Chest examination is clear to auscultation no crackles no wheezing Cardiac exam reveals regular heart sounds S1 and S2 no gallops no murmurs Abdomen is soft nontender no organomegaly with normal bowel sounds Extremity exam reveals no edema no cyanosis or clubbing Neurological examination reveals no gross focal deficits - Labs CBC & Chem 7: 11/27/21 02:50 11/27/21 02:50 Labs: Abnormal Lab Results - Last 24 Hours (Table) 11/26/21 11/26/21 11/26/21 Range/Units 05:54 05:54 05:54 RBC 3.57 L (4.10-5.20) X 10*6/uL Hgb 10.9 L (12.0-15.0) g/dL Hct 35.0 L (37.2-46.3) % MCV 98.0 H (80.0-97.0) fL MCHC 31.1 L (32.0-37.0) g/dL Immature Gran # 0.05 H (0.00-0.04) X 10*3/uL Potassium 2.8 L (3.5-5.5) mmol/L BUN 5.1 L (9.0-27.0) mg/dL BUN/Creatinine Ratio 6.38 L (12.00-20.00) Ratio Glucose (70-110) mg/dL POC Glucose (mg/dL) (75-99) mg/dL Calcium 7.6 L (8.7-10.3) mg/dL Magnesium 1.2 L (1.5-2.4) mg/dL AST 36 H (13-35) U/L Total Protein 5.6 L (6.2-8.2) g/dL Albumin 2.8 L (3.8-4.9) g/dL Albumin/Globulin Ratio 1.00 L (1.60-3.17) g/dL 11/26/21 11/26/21 11/26/21 Range/Units 11:33 15:56 17:20 RBC (4.10-5.20) X 10*6/uL Hgb (12.0-15.0) g/dL Hct (37.2-46.3) % MCV (80.0-97.0) fL MCHC (32.0-37.0) g/dL Immature Gran # (0.00-0.04) X 10*3/uL Potassium 3.1 L (3.5-5.5) mmol/L BUN (9.0-27.0) mg/dL BUN/Creatinine Ratio (12.00-20.00) Ratio Glucose (70-110) mg/dL POC Glucose (mg/dL) 128 H 152 H (75-99) mg/dL Calcium (8.7-10.3) mg/dL Magnesium (1.5-2.4) mg/dL AST (13-35) U/L Total Protein (6.2-8.2) g/dL Albumin (3.8-4.9) g/dL Albumin/Globulin Ratio (1.60-3.17) g/dL 11/26/21 11/26/21 11/27/21 Range/Units 20:24 22:58 02:50 RBC 3.44 L (4.10-5.20) X 10*6/uL Hgb 10.5 L (12.0-15.0) g/dL Hct 33.5 L (37.2-46.3) % MCV 97.4 H (80.0-97.0) fL MCHC 31.3 L (32.0-37.0) g/dL Immature Gran # 0.05 H (0.00-0.04) X 10*3/uL Potassium 3.1 L (3.5-5.5) mmol/L BUN (9.0-27.0) mg/dL BUN/Creatinine Ratio (12.00-20.00) Ratio Glucose (70-110) mg/dL POC Glucose (mg/dL) 123 H (75-99) mg/dL Calcium (8.7-10.3) mg/dL Magnesium (1.5-2.4) mg/dL AST (13-35) U/L Total Protein (6.2-8.2) g/dL Albumin (3.8-4.9) g/dL Albumin/Globulin Ratio (1.60-3.17) g/dL 11/27/21 11/27/21 Range/Units 02:50 07:10 RBC (4.10-5.20) X 10*6/uL Hgb (12.0-15.0) g/dL Hct (37.2-46.3) % MCV (80.0-97.0) fL MCHC (32.0-37.0) g/dL Immature Gran # (0.00-0.04) X 10*3/uL Potassium 3.2 L (3.5-5.5) mmol/L BUN 2.9 L (9.0-27.0) mg/dL BUN/Creatinine Ratio 4.14 L (12.00-20.00) Ratio Glucose 157 H (70-110) mg/dL POC Glucose (mg/dL) 120 H (75-99) mg/dL Calcium 7.3 L (8.7-10.3) mg/dL Magnesium (1.5-2.4) mg/dL AST (13-35) U/L Total Protein 5.4 L (6.2-8.2) g/dL Albumin 2.7 L (3.8-4.9) g/dL Albumin/Globulin Ratio 1.00 L (1.60-3.17) g/dL Assessment and Plan Assessment: 1. Intractable nausea and vomiting. KUB negative CT of abdomen and pelvis completed showing fatty infiltration of the liver and hepatic megaly no acute abnormality in the abdomen and pelvis. Will order ultrasound of abdomen. maintained on Compazine and Zofran. surgical service is consulted 2. Recent COVID-19 infection. PCR negative 3. History of seizures not currently on medication last seizure at age 18 4. Diabetes mellitus type 2 we'll hold patient's home dose of metformin and add sliding scale coverage 5. Severe electrolyte imbalance with hypomagnesemia and Hypokalemia. Due to intractable vomiting Patient receiving IV replacement of potassium and magnesium will recheck labs in a.m. 6. History of anxiety and depression DVT prophylaxis Lovenox. GI prophylaxis Protonix Ultrasound of abdomen ordered Surgical service is consulted Repeat labs ordered
[2021-11-27 20:09] LABS: Glucose,Whole Blood 115 mg/dL (75-99)
[2021-11-28] MEDS: SODIUM CHLORIDE 0.9% 1,000 ML IV SCH ×2 (04:19→07:45)
[2021-11-28] MEDS: ONDANSETRON 4 MG/2 ML VIAL IVP PRN ×3 (04:25→17:31)
[2021-11-28 07:08] LABS: Glucose,Whole Blood 110 mg/dL (75-99)
[2021-11-28] MEDS: INSULIN ASPART (NovoLOG) 100 UNIT/ML VIAL SQ SCH ×4 (07:28→20:17)
[2021-11-28] MEDS: PROCHLORPERAZINE INJ 10 MG/2 ML VIAL IVP PRN ×3 (08:00→22:06)
[2021-11-28] MEDS: ENOXAPARIN 40 MG/0.4 ML SYRINGE SQ SCH (10:59)
[2021-11-28] MEDS: PANTOPRAZOLE 40 MG/10 ML VIAL IVP SCH (10:59)
[2021-11-28 11:32] LABS: Basophils % (A) 0 %; Eosinophils # (A) 0.1 k/uL (0-0.7); Eosinophils % (A) 2 %; HCT 36.3 % (34.0-46.0); HGB 12.2 gm/dL (11.4-16.0); Lymphocytes # (A) 1.1 k/uL (1.0-4.8); Lymphocytes % (A) 16 %; MCH 32.5 pg (25.0-35.0); MCHC 33.5 g/dL (31.0-37.0); Mean Platelet Volume 7.8; Monocytes # (A) 0.3 k/uL (0-1.0); Monocytes % (A) 4 %; Neutrophils # (A) 5.2 k/uL (1.3-7.7); Neutrophils % (A) 76 %; Platelet Count 278 k/uL (150-450); RBC 3.74 m/uL (3.80-5.40); RDW 13.1 % (11.5-15.5); WBC 6.8 k/uL (3.8-10.6)
[2021-11-28 11:52] LABS: ALT 15 U/L (4-34); AST 38 U/L (14-36); African American GFR (CKD) >90 (>60 ml/min/1.73 sqM); Albumin/Globulin Ratio 0.9; Alkaline Phosphatase 129 U/L (38-126); Anion Gap 6 mmol/L; Blood Urea Nitrogen <2 mg/dL (7-17); Calcium 7.6 mg/dL (8.4-10.2); Carbon Dioxide 29 mmol/L (22-30); Chloride 104 mmol/L (98-107); Globulin 3.3 g/dL; Glucose 134 mg/dL (74-99); Non-African American GFR(CKD) >90 (>60 ml/min/1.73 sqM); Potassium 3.1 mmol/L (3.5-5.1); Sodium 139 mmol/L (137-145); Total Bilirubin 0.9 mg/dL (0.2-1.3); Total Protein 6.3 g/dL (6.3-8.2)
[2021-11-28] MEDS ORDERED: Potassium Replacement Protocol 1 EACH MISC MISCELLANE PRN (12:01)
[2021-11-28 12:07] LABS: Glucose,Whole Blood 120 mg/dL (75-99)
[2021-11-28] MEDS: POTASSIUM CHLORIDE ER 20 MEQ TAB.ER PO SCH ×2 (12:17→13:39)
--- NOTE | 2021-11-28 12:41 | P.PN ---
Subjective Progress Note Date: 11/28/21 Principal diagnosis: Persistent vomiting, pain Patient just returned back from her upper GI small bowel series. Results are pending. Contrast did reach the colon without difficulty. Still having issues of nausea and abdominal discomfort. Objective - Vital Signs Vital signs: Vital Signs Temp 98.7 F 11/28/21 07:55 Pulse 84 11/28/21 07:55 Resp 18 11/28/21 08:10 BP 113/77 11/28/21 07:55 Pulse Ox 98 11/28/21 07:55 Intake & Output 11/27/21 11/28/21 11/28/21 18:59 06:59 18:59 Output Total 1 Balance -1 Output: Emesis 1 Other: Voiding Method Toilet Toilet # Voids 1 1 - Exam Abdomen: Soft, mild tenderness, no rebound or guarding nondistended - Labs CBC & Chem 7: 11/28/21 11:14 11/28/21 11:14 Labs: Abnormal Lab Results - Last 24 Hours (Table) 11/27/21 11/27/21 11/28/21 Range/Units 16:38 20:07 07:07 RBC (3.80-5.40) m/uL Potassium (3.5-5.1) mmol/L BUN (7-17) mg/dL Glucose (74-99) mg/dL POC Glucose (mg/dL) 134 H 115 H 110 H (75-99) mg/dL Calcium (8.4-10.2) mg/dL AST (14-36) U/L Alkaline Phosphatase (38-126) U/L Albumin (3.5-5.0) g/dL 11/28/21 11/28/21 11/28/21 Range/Units 11:14 11:14 12:06 RBC 3.74 L (3.80-5.40) m/uL Potassium 3.1 L (3.5-5.1) mmol/L BUN <2 L (7-17) mg/dL Glucose 134 H (74-99) mg/dL POC Glucose (mg/dL) 120 H (75-99) mg/dL Calcium 7.6 L (8.4-10.2) mg/dL AST 38 H (14-36) U/L Alkaline Phosphatase 129 H (38-126) U/L Albumin 3.0 L (3.5-5.0) g/dL Assessment and Plan (1) Abdominal pain Narrative/Plan: 46-year-old female with persistent nausea vomiting and abdominal pain. Upper GI small bowel series performed this morning. Await final report. If no abnormalities of significance identified and patient's symptoms persist consider GI consultation. Likely resume diet after results submitted. Current Visit: Yes Status: Acute Priority: High Code(s): R10.9 - UNSPECIFIED ABDOMINAL PAIN SNOMED Code(s): 29794484
--- NOTE | 2021-11-28 13:19 | P.PN ---
Subjective Progress Note Date: 11/28/21 This is a 46-year-old female patient who presented to the ER with concerns of ongoing nausea and vomiting. Patient reports that she was diagnosed with COVID- 19 at the beginning of November. Initial symptoms were headache. Patient states that nausea and vomiting have been going on for approximately 2 weeks. Patient denies alcohol use or change in diet. Patient does have past medical history of seizure disorder with last seizure at age 18 not currently on any medication, anxiety, depression, diabetes mellitus type 2 and ex-smoker. COVID- 19 PCR was negative. KUB x-ray showing nonacute abdomen. CT of abdomen and pelvis completed showing fatty infiltration of the liver and hepatomegaly no acute abnormality of the abdomen pelvis. . Amylase and lipase within normal limits. AST 57, ALT 18 and alkaline phosphatase 169. Potassium low at 3.1. Urine hCG negative. At this time patient will be admitted. Patient continuing to have nausea and vomiting despite Zofran and IV fluid. Will add Compazine. Surgical services also consulted. Ultrasound of abdomen ordered. Patient denies chest pain. Patient denies shortness of breath. Patient denies any urinary burning or frequency On 11/26/2021 patient was seen and examined on the medical floor she is alert and oriented 3 in no apparent distress she is still complaining of severe nausea and episodes of vomiting. Today she has a low potassium of 3.1 after replacement yesterday she also has low magnesium of 1.2 at this time will corre ct potassium and magnesium with IV supplements awaiting decision by surgery whether patient need EGD continue with IV Zofran and IV Compazine with follow in a.m. On 11/27/2021 patient was seen and examined on the medical floor she is alert and oriented 3 in no apparent distress she is still complaining of nausea and had 1 episode of vomiting today. Potassium is still low and being replaced per protocol magnesium is up to 1.9 today after receiving 2 g of IV magnesium last night, at this time will continue with current management will check if surgery will proceed with EGD tomorrow otherwise possible discharge in the next 1-2 days On 11/28/2021 patient is alert and oriented 3. Patient is still complaining of occasional nausea. Patient having upper GI study today per surgical services. Potassium remains low at 3.1 replacement protocol. Potassium 0.9. Awaiting further recommendations from surgical services. Patient denies chest pain or shortness of breath. Patient denies nausea vomiting or diarrhea. Patient denies any urinary burning or frequency. Objective - Vital Signs Vital signs: Vital Signs Temp 98.7 F 11/28/21 07:55 Pulse 84 11/28/21 07:55 Resp 18 11/28/21 08:10 BP 113/77 11/28/21 07:55 Pulse Ox 98 11/28/21 07:55 Intake & Output 11/27/21 11/28/21 11/28/21 18:59 06:59 18:59 Output Total 1 Balance -1 Output: Emesis 1 Other: Voiding Method Toilet Toilet # Voids 1 1 - Exam In general patient is alert and oriented x -3 in no distress HEENT head normocephalic and atraumatic Neck is supple no JVD no goiter no lymphadenopathy no carotid bruit Chest examination is clear to auscultation no crackles no wheezing Cardiac exam reveals regular heart sounds S1 and S2 no gallops no murmurs Abdomen is soft nontender no organomegaly with normal bowel sounds Extremity exam reveals no edema no cyanosis or clubbing Neurological examination reveals no gross focal deficits - Labs CBC & Chem 7: 11/28/21 11:14 11/28/21 11:14 Labs: Abnormal Lab Results - Last 24 Hours (Table) 11/27/21 11/27/21 11/28/21 Range/Units 16:38 20:07 07:07 RBC (3.80-5.40) m/uL Potassium (3.5-5.1) mmol/L BUN (7-17) mg/dL Glucose (74-99) mg/dL POC Glucose (mg/dL) 134 H 115 H 110 H (75-99) mg/dL Calcium (8.4-10.2) mg/dL AST (14-36) U/L Alkaline Phosphatase (38-126) U/L Albumin (3.5-5.0) g/dL 11/28/21 11/28/21 11/28/21 Range/Units 11:14 11:14 12:06 RBC 3.74 L (3.80-5.40) m/uL Potassium 3.1 L (3.5-5.1) mmol/L BUN <2 L (7-17) mg/dL Glucose 134 H (74-99) mg/dL POC Glucose (mg/dL) 120 H (75-99) mg/dL Calcium 7.6 L (8.4-10.2) mg/dL AST 38 H (14-36) U/L Alkaline Phosphatase 129 H (38-126) U/L Albumin 3.0 L (3.5-5.0) g/dL Assessment and Plan Assessment: 1. Intractable nausea and vomiting. KUB negative CT of abdomen and pelvis completed showing fatty infiltration of the liver and hepatic megaly no acute abnormality in the abdomen and pelvis. Will order ultrasound of abdomen. maintained on Compazine and Zofran. surgical service is consulted 2. Recent COVID-19 infection. PCR negative 3. History of seizures not currently on medication last seizure at age 18 4. Diabetes mellitus type 2 we'll hold patient's home dose of metformin and add sliding scale coverage 5. Severe electrolyte imbalance with hypomagnesemia and Hypokalemia. Due to intractable vomiting Patient receiving IV replacement of potassium and magnesium will recheck labs in a.m. 6. History of anxiety and depression DVT prophylaxis Lovenox. GI prophylaxis Protonix Surgical services are following Upper GI series ordered
[2021-11-28 17:09] LABS: Glucose,Whole Blood 96 mg/dL (75-99)
[2021-11-28 20:13] LABS: Glucose,Whole Blood 135 mg/dL (75-99)
--- NOTE | 2021-11-28 23:02 | FL ---
EXAMINATION TYPE: FL UGI w small bowel DATE OF EXAM: 11/28/2021 COMPARISON: Similar study dated 07/12/[address] dated 11/24/2021 HISTORY: Intractable vomiting TECHNIQUE: A double contrast UGI study is performed with small bowel follow through. A total of 2 m inutes and 58 seconds of fluoroscopic time was utilized during procedure and 42 images obtained. FINDINGS: [employer] image of the abdomen shows no gross abnormality. Bilateral tubal ligation clips. Cho lecystectomy clips. The esophagus shows normal motility and emptying into the stomach. No evidence of hiatal hernia or s tricture noted. The stomach shows normal distensibility. No evidence of any mass or ulcer disease. No significant e sophageal reflux was seen during real time performance of this study. The duodenal bulb and sweep are unremarkable. The small bowel study shows a slightly rapid transit to the colon in less than 30 minutes, also appre ciated previously. There is normal mucosal fold pattern throughout the small bowel. There is no kenton dence of any stricture or filling defect noted. The terminal ileum is unremarkable. Suspected wall thickening of the cecum which was also appreciated on the previous recent CT scan, suggestive of chronic inflammatory changes. IMPRESSION: Slightly rapid transit time to the colon in less than 30 minutes which was also appreciated previousl y. Suspected wall thickening of the cecum, also appreciated on the previous recent CT scan which may suggest chronic inflammatory changes.
[2021-11-29] MEDS: ONDANSETRON 4 MG/2 ML VIAL IVP PRN ×3 (01:12→19:56)
[2021-11-29] MEDS: PROCHLORPERAZINE INJ 10 MG/2 ML VIAL IVP PRN ×2 (04:41→12:09)
[2021-11-29 07:15] LABS: Glucose,Whole Blood 86 mg/dL (75-99)
[2021-11-29] MEDS: INSULIN ASPART (NovoLOG) 100 UNIT/ML VIAL SQ SCH ×4 (07:48→19:56)
[2021-11-29] MEDS: SODIUM CHLORIDE 0.9% 1,000 ML IV SCH ×3 (07:49→23:19)
[2021-11-29] MEDS: PANTOPRAZOLE 40 MG/10 ML VIAL IVP SCH (07:49)
[2021-11-29] MEDS: ENOXAPARIN 40 MG/0.4 ML SYRINGE SQ SCH (07:49)
[2021-11-29 11:07] LABS: Basophils # (A) 0.01 X 10*3/uL (0.00-0.10); Basophils % (A) 0.2 %; Eosinophils # (A) 0.14 X 10*3/uL (0.04-0.35); Eosinophils % (A) 2.5 %; HGB 10.1 g/dL (12.0-15.0); Immature Grans, Automated 0.7 %; Lymphocytes # (A) 1.34 X 10*3/uL (0.90-5.00); Lymphocytes % (A) 24.1 %; MCH 30.5 pg (27.0-32.0); MCHC 31.6 g/dL (32.0-37.0); MCV 96.7 fL (80.0-97.0); Mean Platelet Volume 10.2 fL (9.5-12.2); Monocytes # (A) 0.41 X 10*3/uL (0.20-1.00); Monocytes % (A) 7.4 %; NRBC Per 100 WBC 0 /100 WBCS (0.0-0.0); Neutrophils # (A) 3.62 X 10*3/uL (1.80-7.70); Neutrophils % (A) 65.1 %; Platelet Count 248 X 10*3/uL (140-440); RBC 3.31 X 10*6/uL (4.10-5.20); RDW 13.2 % (11.5-14.5); WBC 5.56 X 10*3/uL (4.50-10.00)
[2021-11-29 11:42] LABS: African American GFR (CKD) 103.9 (60.0-200.0); Albumin 2.7 g/dL (3.8-4.9); Anion Gap 11.1 mmol/L (10.00-18.00); BUN/Creat Ratio 2.13 Ratio (12.00-20.00); Blood Urea Nitrogen 1.7 mg/dL (9.0-27.0); Calcium 7.1 mg/dL (8.7-10.3); Carbon Dioxide 26.9 mmol/L (20.0-27.5); Globulin 2.7 g/dL (1.6-3.3); Non-African American GFR(CKD) 89.7 (60.0-200.0); Potassium 3.4 mmol/L (3.5-5.5); Total Bilirubin 0.5 mg/dL (0.30-1.20); Total Protein 5.4 g/dL (6.2-8.2)
[2021-11-29 11:59] LABS: Glucose,Whole Blood 109 mg/dL (75-99)
[2021-11-29 13:36] VITALS: BMI 43.5
--- NOTE | 2021-11-29 15:28 | P.PN ---
Subjective Progress Note Date: 11/29/21 Principal diagnosis: Persistent vomiting, pain Patient having nausea and vomiting again. Upper GI small bowel series reviewed. No evidence of obstruction. No obvious ulcer disease is seen. Some thickening of the mucosa in the cecum suspected. Objective - Vital Signs Vital signs: Vital Signs Temp 98.0 F 11/29/21 14:00 Pulse 84 11/29/21 14:00 Resp 17 11/29/21 14:00 BP 120/86 11/29/21 14:00 Pulse Ox 97 11/29/21 14:00 Intake & Output 11/28/21 11/29/21 11/29/21 18:59 06:59 18:59 Intake Total 118 Output Total 3 Balance -3 118 Weight 107.955 kg Intake: Oral 118 Output: Emesis 3 Other: Voiding Method Toilet Toilet Toilet # Voids 4 4 # Bowel Movements 1 - Exam Abdomen: Soft, nontender, nondistended - Labs CBC & Chem 7: 11/29/21 06:58 11/29/21 06:58 Labs: Abnormal Lab Results - Last 24 Hours (Table) 11/28/21 11/29/21 11/29/21 Range/Units 20:09 06:58 06:58 RBC 3.31 L (4.10-5.20) X 10*6/uL Hgb 10.1 L (12.0-15.0) g/dL Hct 32.0 L (37.2-46.3) % MCHC 31.6 L (32.0-37.0) g/dL Potassium 3.4 L (3.5-5.5) mmol/L BUN 1.7 L (9.0-27.0) mg/dL BUN/Creatinine Ratio 2.13 L (12.00-20.00) Ratio POC Glucose (mg/dL) 135 H (75-99) mg/dL Calcium 7.1 L (8.7-10.3) mg/dL Total Protein 5.4 L (6.2-8.2) g/dL Albumin 2.7 L (3.8-4.9) g/dL Albumin/Globulin Ratio 1.00 L (1.60-3.17) g/dL 11/29/21 Range/Units 11:58 RBC (4.10-5.20) X 10*6/uL Hgb (12.0-15.0) g/dL Hct (37.2-46.3) % MCHC (32.0-37.0) g/dL Potassium (3.5-5.5) mmol/L BUN (9.0-27.0) mg/dL BUN/Creatinine Ratio (12.00-20.00) Ratio POC Glucose (mg/dL) 109 H (75-99) mg/dL Calcium (8.7-10.3) mg/dL Total Protein (6.2-8.2) g/dL Albumin (3.8-4.9) g/dL Albumin/Globulin Ratio (1.60-3.17) g/dL Assessment and Plan (1) Abdominal pain Narrative/Plan: 46-year-old female with persistent nausea and vomiting. No general surgery etiology identified on upper GI small bowel series. Patient had recent upper and lower endoscopy by myself less than 1.5 years ago. Recommend GI evaluation at this time. We'll sign off. Please call if new issues arise. Current Visit: Yes Status: Acute Priority: High Code(s): R10.9 - UNSPECIFIED ABDOMINAL PAIN SNOMED Code(s): 60776993
--- NOTE | 2021-11-29 17:19 | P.PN ---
Subjective Progress Note Date: 11/29/21 This is a 46-year-old female patient who presented to the ER with concerns of ongoing nausea and vomiting. Patient reports that she was diagnosed with COVID- 19 at the beginning of November. Initial symptoms were headache. Patient states that nausea and vomiting have been going on for approximately 2 weeks. Patient denies alcohol use or change in diet. Patient does have past medical history of seizure disorder with last seizure at age 18 not currently on any medication, anxiety, depression, diabetes mellitus type 2 and ex-smoker. COVID- 19 PCR was negative. KUB x-ray showing nonacute abdomen. CT of abdomen and pelvis completed showing fatty infiltration of the liver and hepatomegaly no acute abnormality of the abdomen pelvis. . Amylase and lipase within normal limits. AST 57, ALT 18 and alkaline phosphatase 169. Potassium low at 3.1. Urine hCG negative. At this time patient will be admitted. Patient continuing to have nausea and vomiting despite Zofran and IV fluid. Will add Compazine. Surgical services also consulted. Ultrasound of abdomen ordered. Patient denies chest pain. Patient denies shortness of breath. Patient denies any urinary burning or frequency On 11/26/2021 patient was seen and examined on the medical floor she is alert and oriented 3 in no apparent distress she is still complaining of severe nausea and episodes of vomiting. Today she has a low potassium of 3.1 after replacement yesterday she also has low magnesium of 1.2 at this time will corre ct potassium and magnesium with IV supplements awaiting decision by surgery whether patient need EGD continue with IV Zofran and IV Compazine with follow in a.m. On 11/27/2021 patient was seen and examined on the medical floor she is alert and oriented 3 in no apparent distress she is still complaining of nausea and had 1 episode of vomiting today. Potassium is still low and being replaced per protocol magnesium is up to 1.9 today after receiving 2 g of IV magnesium last night, at this time will continue with current management will check if surgery will proceed with EGD tomorrow otherwise possible discharge in the next 1-2 days On 11/28/2021 patient is alert and oriented 3. Patient is still complaining of occasional nausea. Patient having upper GI study today per surgical services. Potassium remains low at 3.1 replacement protocol. Potassium 0.9. Awaiting further recommendations from surgical services. Patient denies chest pain or shortness of breath. Patient denies nausea vomiting or diarrhea. Patient denies any urinary burning or frequency. On 11/29/2021 on the medical floor she is alert and oriented 3 in no apparent distress, complaining of nausea or vomiting and abdominal pain, patient stated that she vomited 4 times today, Patient denies chest pain. Patient denies shortness of breath. Patient denies any urinary burning or frequency Objective - Vital Signs Vital signs: Vital Signs Temp 98.0 F 11/29/21 14:00 Pulse 84 11/29/21 14:00 Resp 17 11/29/21 14:00 BP 120/86 11/29/21 14:00 Pulse Ox 97 11/29/21 14:00 Intake & Output 11/28/21 11/29/21 11/29/21 18:59 06:59 18:59 Intake Total 118 Output Total 3 Balance -3 118 Weight 107.955 kg Intake: Oral 118 Output: Emesis 3 Other: Voiding Method Toilet Toilet Toilet # Voids 4 4 # Bowel Movements 1 - Exam In general patient is alert and oriented x -3 in no distress HEENT head normocephalic and atraumatic Neck is supple no JVD no goiter no lymphadenopathy no carotid bruit Chest examination is clear to auscultation no crackles no wheezing Cardiac exam reveals regular heart sounds S1 and S2 no gallops no murmurs Abdomen is soft nontender no organomegaly with normal bowel sounds Extremity exam reveals no edema no cyanosis or clubbing Neurological examination reveals no gross focal deficits - Labs CBC & Chem 7: 11/29/21 06:58 11/29/21 06:58 Labs: Abnormal Lab Results - Last 24 Hours (Table) 11/28/21 11/29/21 11/29/21 Range/Units 20:09 06:58 06:58 RBC 3.31 L (4.10-5.20) X 10*6/uL Hgb 10.1 L (12.0-15.0) g/dL Hct 32.0 L (37.2-46.3) % MCHC 31.6 L (32.0-37.0) g/dL Potassium 3.4 L (3.5-5.5) mmol/L BUN 1.7 L (9.0-27.0) mg/dL BUN/Creatinine Ratio 2.13 L (12.00-20.00) Ratio POC Glucose (mg/dL) 135 H (75-99) mg/dL Calcium 7.1 L (8.7-10.3) mg/dL Total Protein 5.4 L (6.2-8.2) g/dL Albumin 2.7 L (3.8-4.9) g/dL Albumin/Globulin Ratio 1.00 L (1.60-3.17) g/dL 11/29/21 Range/Units 11:58 RBC (4.10-5.20) X 10*6/uL Hgb (12.0-15.0) g/dL Hct (37.2-46.3) % MCHC (32.0-37.0) g/dL Potassium (3.5-5.5) mmol/L BUN (9.0-27.0) mg/dL BUN/Creatinine Ratio (12.00-20.00) Ratio POC Glucose (mg/dL) 109 H (75-99) mg/dL Calcium (8.7-10.3) mg/dL Total Protein (6.2-8.2) g/dL Albumin (3.8-4.9) g/dL Albumin/Globulin Ratio (1.60-3.17) g/dL Assessment and Plan Assessment: 1. Intractable nausea and vomiting. KUB negative CT of abdomen and pelvis completed showing fatty infiltration of the liver and hepatic megaly no acute abnormality in the abdomen and pelvis. Will order ultrasound of abdomen. maintained on Compazine and Zofran. surgical service is consulted 2. Recent COVID-19 infection. PCR negative 3. History of seizures not currently on medication last seizure at age 18 4. Diabetes mellitus type 2 we'll hold patient's home dose of metformin and add sliding scale coverage 5. Severe electrolyte imbalance with hypomagnesemia and Hypokalemia. Due to intractable vomiting Patient receiving IV replacement of potassium and magnesium will recheck labs in a.m. 6. History of anxiety and depression DVT prophylaxis Lovenox. GI prophylaxis Protonix Surgical services are following Upper GI series ordered
[2021-11-29 17:43] LABS: Glucose,Whole Blood 102 mg/dL (75-99)
[2021-11-29 19:41] LABS: Glucose,Whole Blood 108 mg/dL (75-99)
[2021-11-30] MEDS: PROCHLORPERAZINE INJ 10 MG/2 ML VIAL IVP PRN ×2 (00:24→14:40)
[2021-11-30 06:57] LABS: Glucose,Whole Blood 93 mg/dL (75-99)
[2021-11-30] MEDS: INSULIN ASPART (NovoLOG) 100 UNIT/ML VIAL SQ SCH ×2 (07:52→12:31)
[2021-11-30] MEDS: ENOXAPARIN 40 MG/0.4 ML SYRINGE SQ SCH (09:01)
[2021-11-30] MEDS: PANTOPRAZOLE 40 MG/10 ML VIAL IVP SCH (09:33)
[2021-11-30 09:50] LABS: Basophils % (A) 0 %; Eosinophils # (A) 0.2 k/uL (0-0.7); Eosinophils % (A) 2 %; HCT 36.2 % (34.0-46.0); HGB 11.7 gm/dL (11.4-16.0); Lymphocytes # (A) 1.4 k/uL (1.0-4.8); Lymphocytes % (A) 20 %; MCH 31.6 pg (25.0-35.0); MCHC 32.4 g/dL (31.0-37.0); MCV 97.6 fL (80.0-100.0); Mean Platelet Volume 7.7; Monocytes # (A) 0.4 k/uL (0-1.0); Monocytes % (A) 6 %; Neutrophils # (A) 5.1 k/uL (1.3-7.7); Neutrophils % (A) 72 %; Platelet Count 262 k/uL (150-450); RBC 3.71 m/uL (3.80-5.40); RDW 13.3 % (11.5-15.5); WBC 7.2 k/uL (3.8-10.6)
[2021-11-30 10:29] LABS: ALT 13 U/L (4-34); AST 37 U/L (14-36); African American GFR (CKD) >90 (>60 ml/min/1.73 sqM); Albumin 2.7 g/dL (3.5-5.0); Albumin/Globulin Ratio 0.8; Alkaline Phosphatase 132 U/L (38-126); Anion Gap 5 mmol/L; Blood Urea Nitrogen <2 mg/dL (7-17); Calcium 7.1 mg/dL (8.4-10.2); Carbon Dioxide 29 mmol/L (22-30); Chloride 102 mmol/L (98-107); Globulin 3.3 g/dL; Glucose 144 mg/dL (74-99); Non-African American GFR(CKD) >90 (>60 ml/min/1.73 sqM); Sodium 136 mmol/L (137-145); Total Bilirubin 0.8 mg/dL (0.2-1.3)
[2021-11-30] MEDS ORDERED: Potassium Replacement Protocol 1 EACH MISC MISCELLANE PRN (11:34)
--- NOTE | 2021-11-30 11:40 | P.DS ---
Providers Date of admission: 11/26/21 19:09 Expected date of discharge: 11/30/21 Attending physician: Kacey Brennan Consults: 11/25/21 14:17 Consult Physician Routine Consulting Provider: Lowell Ibarra Consult Reason/Comments: nausea/vomiting Do you want consulting provider notified?: Yes 11/29/21 15:47 Consult Physician Routine Consulting Provider: Lalita Diaz Consult Reason/Comments: nausea vomiting Do you want consulting provider notified?: Yes Primary care physician: [facility] Course: Discharge diagnosis 1. Intractable nausea and vomiting. KUB negative CT of abdomen and pelvis completed showing fatty infiltration of the liver and hepatic megaly no acute abnormality in the abdomen and pelvis. Will order ultrasound of abdomen. maintained on Compazine and Zofran. surgical service is consulted 2. Recent COVID-19 infection. PCR negative 3. History of seizures not currently on medication last seizure at age 18 4. Diabetes mellitus type 2 we'll hold patient's home dose of metformin and add sliding scale coverage 5. Severe electrolyte imbalance with hypomagnesemia and Hypokalemia. Due to intractable vomiting Patient receiving IV replacement of potassium and magnesium will recheck labs in a.m. 6. History of anxiety and depression Hospital course This is a 46-year-old female patient who presented to the ER with concerns of ongoing nausea and vomiting. Patient reports that she was diagnosed with COVID- 19 at the beginning of November. Initial symptoms were headache. Patient states that nausea and vomiting have been going on for approximately 2 weeks. Patient denies alcohol use or change in diet. Patient does have past medical history of seizure disorder with last seizure at age 18 not currently on any medication, anxiety, depression, diabetes mellitus type 2 and ex-smoker. COVID- 19 PCR was negative. KUB x-ray showing nonacute abdomen. CT of abdomen and pelvis completed showing fatty infiltration of the liver and hepatomegaly no acute abnormality of the abdomen pelvis. . Amylase and lipase within normal limits. AST 57, ALT 18 and alkaline phosphatase 169. Potassium low at 3.1. Urine hCG negative. At this time patient will be admitted. Patient continuing to have nausea and vomiting despite Zofran and IV fluid. Will add Compazine. Surgical services also consulted. Ultrasound of abdomen ordered. Patient denies chest pain. Patient denies shortness of breath. Patient denies any urinary burning or frequency On 11/26/2021 patient was seen and examined on the medical floor she is alert and oriented 3 in no apparent distress she is still complaining of severe nausea and episodes of vomiting. Today she has a low potassium of 3.1 after replacement yesterday she also has low magnesium of 1.2 at this time will correct potassium and magnesium with IV supplements awaiting decision by surgery whether patient need EGD continue with IV Zofran and IV Compazine with follow in a.m. On 11/27/2021 patient was seen and examined on the medical floor she is alert and oriented 3 in no apparent distress she is still complaining of nausea and had 1 episode of vomiting today. Potassium is still low and being replaced per protocol magnesium is up to 1.9 today after receiving 2 g of IV magnesium last night, at this time will continue with current management will check if surgery will proceed with EGD tomorrow otherwise possible discharge in the next 1-2 days On 11/28/2021 patient is alert and oriented 3. Patient is still complaining of occasional nausea. Patient having upper GI study today per surgical services. Potassium remains low at 3.1 replacement protocol. Potassium 0.9. Awaiting further recommendations from surgical services. Patient denies chest pain or shortness of breath. Patient denies nausea vomiting or diarrhea. Patient denies any urinary burning or frequency. On 11/29/2021 on the medical floor she is alert and oriented 3 in no apparent distress, complaining of nausea or vomiting and abdominal pain, patient stated that she vomited 4 times today, Patient denies chest pain. Patient denies shortness of breath. Patient denies any urinary burning or frequency On 11/30/2021 patient is alert and oriented 3. Patient reports stopping nausea. Patient was evaluated by surgical services and upper GI series was completed. No further workup inpatient per surgical services. Patient did have EGD and colonoscopy approximately 1 year ago. Patient was also evaluated by GI services no further workup inpatient patient follow-up outpatient with discharge patient potassium supplement along with nausea medications Compazine and Zofran. Patient to have potassium replaced prior to discharge Patient Condition at Discharge: Stable Plan - Discharge Summary Discharge Rx Participant: Yes New Discharge Prescriptions: New Prochlorperazine [Compazine] 5 mg PO Q6HR 30 Days #120 tab Potassium Chloride ER [K-Dur 20] 20 meq PO DAILY 30 Days #30 tablet Ondansetron [Zofran] 4 mg PO Q8HR PRN 30 Days #90 tab PRN Reason: Nausea Continue Sucralfate [Carafate] 1 gm PO AC-TID #21 tab Ferrous Sulfate [Feosol] 325 mg PO DAILY 30 Days #30 tab Pantoprazole Sodium [Protonix] 40 mg PO BID #60 tablet. Fluticasone/Vilanterol [Breo Ellipta 200-25 Mcg Inhaler] 1 puff INHALATION RT-DAILY metFORMIN HCL 500 mg PO BID Discharge Medication List Ferrous Sulfate [Feosol] 325 mg PO DAILY 30 Days #30 tab 07/12/20 [Rx] Pantoprazole Sodium [Protonix] 40 mg PO BID #60 tablet. 07/12/20 [Rx] Sucralfate [Carafate] 1 gm PO AC-TID #21 tab 07/12/20 [Rx] Fluticasone/Vilanterol [Breo Ellipta 200-25 Mcg Inhaler] 1 puff INHALATION RT- DAILY 11/24/21 [History] metFORMIN HCL 500 mg PO BID 11/24/21 [History] Ondansetron [Zofran] 4 mg PO Q8HR PRN 30 Days #90 tab 11/30/21 [Rx] Potassium Chloride ER [K-Dur 20] 20 meq PO DAILY 30 Days #30 tablet 11/30/21 [Rx] Prochlorperazine [Compazine] 5 mg PO Q6HR 30 Days #120 tab 11/30/21 [Rx] Follow up Appointment(s)/Referral(s): Lowell Ibarra MD [Medical Doctor] - 1 Week Kacey Brennan MD [Primary Care Provider] - 1-2 days Discharge/Stand Alone Forms: Who Do I Call?, Personal [employer]
[2021-11-30 11:43] LABS: Glucose,Whole Blood 103 mg/dL (75-99)
[2021-11-30] MEDS: POTASSIUM CHLORIDE ER 20 MEQ TAB.ER PO SCH ×3 (12:42→14:37)
--- NOTE | 2021-11-30 13:07 | P.CONS ---
History of Present Illness - Reason for Consult Consult date: 11/30/21 nausea and vomiting Requesting physician: Lowell Ibarra - Chief Complaint nausea and vomiting - History of Present Illness This 46-year-old female presented to the emergency department on 11/24/2021 with complaints of nausea vomiting and generalized abdominal pain. Patient states she's had this approximately 3 weeks now. She had a CT of the abdomen and pelvis as part of her workup that showed fatty infiltration of the liver and hepatomegaly. No acute abnormality in the abdomen or pelvis. Gen. surgery was consulted and have been following patient. He ordered a upper GI with small bowel series that showed a slightly rapid transit time to the colon less than 30 minutes which was also appreciated previously suspected wall thickening of the cecum, seen on previous computed tomography scan which may suggest chronic inflammatory changes. Gen. surgery did not believe that any of her symptoms or surgical and asked gastroenterology to evaluate further. She had an EGD and colonoscopy in July [address] savage. Colonoscopy was normal and EGD showed gastritis with distal esophagitis. Patient normally takes Carafate at home, she has not been on that since hospitalized. She states that she still has nausea but no vomiting. Abdominal pain improving but still generalized. She states that she has bowel movements daily they are loose. Review of Systems REVIEW OF SYSTEMS: CARDIOPULMONARY: No chest pain or shortness of breath. Gastrointestinal: Generalized abdominal pain. Nausea, no vomiting. No hematemesis, coffee-ground emesis. No rectal bleeding, or melena. Bowel movements daily, loose. GENITOURINARY: No dysuria or hematuria. MUSCULOSKELETAL: Reports normal range of motion., Joint pain. SKIN: No rashes. No jaundice. ENDOCRINE: No chills, fevers. No excessive weight gain or loss. No polydipsia or polyuria. PSYCHIATRIC: Unremarkable. NEUROLOGY: No change in mental status. Denies dizziness, headache. ENT: Vision unremarkable. CONSTITUTIONAL: No recent weight loss. No fever, chills, night sweats. Past Medical History Past Medical History: Seizure Disorder Additional Past Medical History / Comment(s): hx petit mal with last known s eizure age 18,. HEAVY, PAINFUL PERIODS. migraines History of Any Multi-Drug Resistant Organisms: MRSA Year Discovered:: 2009 MDRO Source:: forehead Past Surgical History: Appendectomy, Section, Cholecystectomy, Tubal Ligation Additional Past Surgical History / Comment(s): D & C, tracheotomy as a child, C- SEC X 3, COLONOSCOPY/EGD X2 Past Anesthesia/Blood Transfusion Reactions: No Reported Reaction Past Psychological History: Anxiety, Depression Smoking Status: Former smoker Past Alcohol Use History: Occasional Additional Past Alcohol Use History / Comment(s): QUIT SMOKING 2014 Past Drug Use History: None Reported - Past Family History Mother Family Medical History: Cancer Additional Family Medical History / Comment(s): COLON Medications and Allergies Home Medications Medication Instructions Recorded Confirmed Type Ferrous Sulfate [Feosol] 325 mg PO DAILY 30 Days #30 tab 07/12/20 11/24/21 Rx Pantoprazole Sodium [Protonix] 40 mg PO BID #60 tablet.dr 07/12/20 11/24/21 Rx Sucralfate [Carafate] 1 gm PO AC-TID #21 tab 07/12/20 11/24/21 Rx Fluticasone/Vilanterol [Breo 1 puff INHALATION RT-DAILY 11/24/21 11/24/21 History Ellipta 200-25 Mcg Inhaler] metFORMIN HCL 500 mg PO BID 11/24/21 11/24/21 History Ondansetron [Zofran] 4 mg PO Q8HR PRN 30 Days #90 tab 11/30/21 Rx Potassium Chloride ER [K-Dur 20] 20 meq PO DAILY 30 Days #30 tablet 11/30/21 Rx Prochlorperazine [Compazine] 5 mg PO Q6HR 30 Days #120 tab 11/30/21 Rx Allergies Allergy/AdvReac Type Severity Reaction Status Date / Time sulfamethoxazole Allergy Nausea & Verified 11/24/21 18:34 [From Bactrim] Vomiting trimethoprim [From Bactrim] Allergy Nausea & Verified 11/24/21 18:34 Vomiting Physical Exam Vitals: Vital Signs Temp Pulse Resp BP Pulse Ox 11/30/21 07:41 98.3 F 85 16 128/87 97 11/30/21 02:00 98.7 F 73 16 112/78 94 L 11/29/21 18:48 98.3 F 86 17 107/78 94 L 11/29/21 14:00 98.0 F 84 17 120/86 97 Intake and Output 11/29/21 11/30/21 11/30/21 22:59 06:59 14:59 Intake Total 598 Balance 598 Intake: Oral 598 Other: Voiding Method Toilet Toilet # Voids 2 General appearance: The patient is alert, oriented, appears in no acute distress. HET: Head is normocephalic and atraumatic. Conjunctiva pink. Sclera anicteric. Neck: Supple without lymphadenopathy. Trachea midline. Heart: S1 S2. Regular rate and rhythm. Lungs: Clear to auscultation. Abdomen: Soft, mild diffuse tenderness to palpation, nondistended with bowel sounds. No guarding or rigidity. Skin: No rashes. No jaundice. Extremities: Normal skin color and turgor. No pedal edema. Neurological: No focal deficits. Alert and oriented x3. Results CBC & Chem 7: 11/30/21 09:27 11/30/21 09:27 Labs: Abnormal Lab Results - Last 24 Hours (Table) 11/29/21 11/29/21 11/29/21 Range/Units 06:58 06:58 11:58 RBC 3.31 L (4.10-5.20) X 10*6/uL Hgb 10.1 L (12.0-15.0) g/dL Hct 32.0 L (37.2-46.3) % MCHC 31.6 L (32.0-37.0) g/dL Sodium (137-145) mmol/L Potassium 3.4 L (3.5-5.5) mmol/L BUN 1.7 L (9.0-27.0) mg/dL BUN/Creatinine Ratio 2.13 L (12.00-20.00) Ratio Glucose (74-99) mg/dL POC Glucose (mg/dL) 109 H (75-99) mg/dL Calcium 7.1 L (8.7-10.3) mg/dL AST (14-36) U/L Alkaline Phosphatase (38-126) U/L Total Protein 5.4 L (6.2-8.2) g/dL Albumin 2.7 L (3.8-4.9) g/dL Albumin/Globulin Ratio 1.00 L (1.60-3.17) g/dL 11/29/21 11/29/21 11/30/21 Range/Units 17:42 19:40 09:27 RBC 3.71 L (4.10-5.20) X 10*6/uL Hgb (12.0-15.0) g/dL Hct (37.2-46.3) % MCHC (32.0-37.0) g/dL Sodium (137-145) mmol/L Potassium (3.5-5.5) mmol/L BUN (9.0-27.0) mg/dL BUN/Creatinine Ratio (12.00-20.00) Ratio Glucose (74-99) mg/dL POC Glucose (mg/dL) 102 H 108 H (75-99) mg/dL Calcium (8.7-10.3) mg/dL AST (14-36) U/L Alkaline Phosphatase (38-126) U/L Total Protein (6.2-8.2) g/dL Albumin (3.8-4.9) g/dL Albumin/Globulin Ratio (1.60-3.17) g/dL 11/30/21 Range/Units 09:27 RBC (4.10-5.20) X 10*6/uL Hgb (12.0-15.0) g/dL Hct (37.2-46.3) % MCHC (32.0-37.0) g/dL Sodium 136 L (137-145) mmol/L Potassium 3.0 L (3.5-5.5) mmol/L BUN <2 L (9.0-27.0) mg/dL BUN/Creatinine Ratio (12.00-20.00) Ratio Glucose 144 H (74-99) mg/dL POC Glucose (mg/dL) (75-99) mg/dL Calcium 7.1 L (8.7-10.3) mg/dL AST 37 H (14-36) U/L Alkaline Phosphatase 132 H (38-126) U/L Total Protein 6.0 L (6.2-8.2) g/dL Albumin 2.7 L (3.8-4.9) g/dL Albumin/Globulin Ratio (1.60-3.17) g/dL Comments: CT of the abdomen and pelvis as part of her workup that showed fatty infi ltration of the liver and hepatomegaly. No acute abnormality in the abdomen or pelvis. Upper GI with small bowel series that showed a slightly rapid transit time to the colon less than 30 minutes which was also appreciated previously suspected wall thickening of the cecum, seen on previous computed tomography scan which may suggest chronic inflammatory changes. Assessment and Plan (1) Nausea & vomiting Narrative/Plan: 46-year-old female who was admitted to the hospital with complaints of generalized abdominal pain and nausea vomiting. She had extensive workup with general surgery with no acute findings in her imaging. Gen. surgery has signed off as they do not believe any of her symptoms are related to surgical issues. She states she has had nausea with vomiting for the last 3 weeks duration along with the abdominal pain. No recent travel. No fevers or chills. Bowel movements have been normal she states she goes daily but they are somewhat loose but that's chronic. Her last EGD and colonoscopy was recently in July [address] Ibarra that showed a normal colon and EGD showed gastritis and distal esophagitis. Patient takes omeprazole and her feet at home. Unknown etiology at this time, may be viral/infectious. Recommend resuming Carafate. Continue Protonix and antiemetics as needed. Patient can follow-up with gastroenterology outpatient. Current Visit: Yes Status: Acute Priority: High Code(s): R11.2 - NAUSEA WITH VOMITING, UNSPECIFIED SNOMED Code(s): 36325022 (2) Abdominal pain Current Visit: Yes Status: Acute Priority: High Code(s): R10.9 - U NSPECIFIED ABDOMINAL PAIN SNOMED Code(s): 48837125 Plan: 1. Continue symptomatic and supportive care 2. Increase Protonix to 40 mg twice a day 3. Recommend resuming Carafate 4. Antiemetics as needed 5. No plan for an endoscopic evaluation 6. Recommend outpatient follow-up with gastroenterology. Patient is cleared for discharge from gastroenterology Thank you for allowing us to participate in the care of the patient, the GI service will sign off, gastroenterology will not be available at the hospital this weekend. If further evaluation by gastroenterology is required the patient will need transfer as per the primary team's discretion. Dr. Davin Diaz I agree with the dictator's note, documented as a scribe by Elisa Burleson.
[2021-11-30 14:16] VITALS: BP 126/85; PULSE 102; RESP 20; TEMP 98.4
[2021-11-30] MEDS: SODIUM CHLORIDE 0.9% 1,000 ML IV SCH (15:03)
[2021-11-30] MEDS ORDERED: PANTOPRAZOLE 40 MG TABLET PO SCH (17:30)
[2021-12-01] MEDS ORDERED: POTASSIUM CHLORIDE ER 20 MEQ TAB.ER PO SCH (09:00)
== END 2021-11-30 15:57 | disposition home or self-care (01) | DRG 392 ==
LOC: EC 13:25 → 6NMEDSUR 19:38 → OBSVTOIN 11-26 19:09
PROVIDERS: ADMIT Internal Medicine; ATTEND Internal Medicine
DX: R11.10 Vomiting, unspecified (principal); Z68.41 Body mass index [BMI] 40.0-44.9, adult; R11.2 Nausea with vomiting, unspecified; Z86.16 Personal history of COVID-19; Z20.822 Contact with and (suspected) exposure to COVID-19; E11.9 Type 2 diabetes mellitus without complications; E66.01 Morbid (severe) obesity due to excess calories; F32.A Depression, unspecified; G43.909 Migraine, unspecified, not intractable, without status migrainosus; E83.42 Hypomagnesemia; E87.6 Hypokalemia; F41.9 Anxiety disorder, unspecified; G40.A09 Absence epileptic syndrome, not intractable, without status epilepticus; K76.0 Fatty (change of) liver, not elsewhere classified; Z79.84 Long term (current) use of oral hypoglycemic drugs; Z79.899 Other long term (current) drug therapy; Z87.891 Personal history of nicotine dependence; Z90.49 Acquired absence of other specified parts of digestive tract; Z98.51 Tubal ligation status; Z98.890 Other specified postprocedural states; Z88.2 Allergy status to sulfonamides; Z86.14 Personal history of Methicillin resistant Staphylococcus aureus infection
CPT/HCPCS: 36415; 74018; 74177; 74240; 74248; 76700; 80053; 81001; 81025; 82150; 83605; 83690; 83735; 84132; 85025; 85610; 85730; 87635; 96361; 96374; 96375; 99285

== ENCOUNTER 2022-10-14 21:49 | Emergency (ER) | payer MEDICARE ==
[2022-10-14 22:20] VITALS: RESP 16; TEMP 98
[2022-10-14] MEDS ORDERED: BACITRACIN OINT 1 EACH PACKET TOPICAL ONE (22:58)
[2022-10-14] MEDS ORDERED: KETOROLAC 15 MG/ML 1 ML VIAL IM STA (22:58)
--- NOTE | 2022-10-14 23:07 | ED ---
Upper Extremity HPI - General Chief Complaint: Extremity Injury, Upper Stated Complaint: Burn on Right Hand Time Seen by Provider: 10/14/22 22:58 Source: patient Mode of arrival: ambulatory Limitations: no limitations - History of Present Illness Initial Comments: Patient is a 46-year-old female presents to the emergency department with a chief complaint of burn. Patient burned her first and second finger of her right hand on hot water this evening. No blistering. - Related Data Home Medications Medication Instructions Recorded Confirmed Fluticasone/Vilanterol [Breo 1 puff INHALATION RT-DAILY 11/24/21 11/24/21 Ellipta 200-25 Mcg Inhaler] metFORMIN HCL 500 mg PO BID 11/24/21 11/24/21 Previous Rx's Medication Instructions Recorded Ferrous Sulfate [Feosol] 325 mg PO DAILY 30 Days #30 tab 07/12/20 Pantoprazole Sodium [Protonix] 40 mg PO BID #60 tablet. 07/12/20 Sucralfate [Carafate] 1 gm PO AC-TID #21 tab 07/12/20 Ondansetron [Zofran] 4 mg PO Q8HR PRN 30 Days #90 tab 11/30/21 Potassium Chloride ER [K-Dur 20] 20 meq PO DAILY 30 Days #30 tablet 11/30/21 Prochlorperazine [Compazine] 5 mg PO Q6HR 30 Days #120 tab 11/30/21 Bacitracin/Polymyx Oint 1 applic TOPICAL QID #1 dispenser 10/14/22 [Polysporin Oint] Ibuprofen [Motrin] 800 mg PO Q8HR PRN #30 tab 10/14/22 Allergies Allergy/AdvReac Type Severity Reaction Status Date / Time sulfamethoxazole Allergy Nausea & Verified 11/24/21 18:34 [From Bactrim] Vomiting trimethoprim [From Bactrim] Allergy Nausea & Verified 11/24/21 18:34 Vomiting Review of Systems ROS Statement: Those systems with pertinent positive or pertinent negative responses have been documented in the HPI. ROS Other: All systems not noted in ROS Statement are negative. Past Medical History Past Medical History: Seizure Disorder Additional Past Medical History / Comment(s): hx petit mal with last known seizure age 18,. HEAVY, PAINFUL PERIODS. migraines History of Any Multi-Drug Resistant Organisms: MRSA Date of last positivie culture/infection: 2010 MDRO Source:: forehead Past Surgical History: Appendectomy, Section, Cholecystectomy, Tubal Ligation Additional Past Surgical History / Comment(s): D & C, tracheotomy as a child, C- SEC X 3, COLONOSCOPY/EGD X2 Past Anesthesia/Blood Transfusion Reactions: No Reported Reaction Past Psychological History: Anxiety, Depression Smoking Status: Former smoker Past Alcohol Use History: Occasional Past Drug Use History: None Reported - Past Family History Mother Family Medical History: Cancer Additional Family Medical History / Comment(s): COLON General Exam Limitations: no limitations General appearance: alert, in no apparent distress Head exam: Present: atraumatic, normocephalic, normal inspection Eye exam: Present: normal appearance, PERRL, EOMI. Absent: scleral icterus, conjunctival injection, periorbital swelling Respiratory exam: Present: normal lung sounds bilaterally. Absent: respiratory distress, wheezes, rales, rhonchi, stridor Cardiovascular Exam: Present: regular rate, normal rhythm, normal heart sounds. Absent: systolic murmur, diastolic murmur, rubs, gallop, clicks Extremities exam: Present: other (First-degree burn to dorsal aspect of first and second right finger. Not circumferential. Full range of motion. Neurovascular intact) Skin exam: Present: warm, dry, intact, normal color. Absent: rash Course Vital Signs 10/14/22 22:17 Temperature 98 F Pulse Rate 92 Respiratory 16 Rate Blood Pressure 117/87 O2 Sat by Pulse 98 Oximetry Medical Decision Making - Medical Decision Making Was pt. sent in by a medical professional or institution (, PA, DIRECTOR OF ALUMNI RELATIONS, urgent care, hospital, or shelter...) When possible be specific @ -[No] Did you speak to anyone other than the patient for history (EMS, parent, family, police, friend...)? What history was obtained from this source @ -[No] Did you review nursing and triage notes (agree or disagree)? Why? @ -[I reviewed and agree with nursing and triage notes] Were old charts reviewed (outside hosp., previous admission, EMS record, old EKG, old radiological studies, urgent care reports/EKG's, shelter records)? Report findings @ -[No old charts were reviewed] Differential Diagnosis (chest pain, altered mental status, abdominal pain women, abdominal pain men, vaginal bleeding, weakness, fever, dyspnea, syncope, headache, dizziness, GI bleed, back pain, seizure, CVA, palpatations, mental health)? @ -[not applicable] EKG interpreted by me (3pts min.). @ -[As above] X-rays interpreted by me (1pt min.). @ -[None done] CT interpreted by me (1pt min.). @ -[None done] U/S interpreted by me (1pt. min.). @ -[None done] What testing was considered but not performed or refused? (CT, X-rays, U/S, labs)? Why? @ -[None] What meds were considered but not given or refused? Why? @ -[None] Did you discuss the management of the patient with other professionals (professionals i.e. , PA, DIRECTOR OF ALUMNI RELATIONS, lab, RT, psych nurse, social problems specialist, spreader box operator, teacher, human resources officer, major case detective)? Give summary @ -[No] Was smoking cessation discussed for >3mins.? @ -[No] Was critical care preformed (if so, how long)? @ -[No] Were there social determinants of health that impacted care today? How? (Homelessness, low income, unemployed, alcoholism, drug addiction, transportation, low edu. Level, literacy, decrease access to med. care, nursing home, rehab)? @ -[No] Was there de-escalation of care discussed even if they declined (Discuss DNR or withdrawal of care, Hospice)? DNR status @ -[No] What co-morbidities impacted this encounter? (DM, HTN, Smoking, COPD, CAD, Cancer, CVA, ARF, Chemo, Hep., AIDS, mental health diagnosis, sleep apnea, morbid obesity)? @ -[None] Was patient admitted / discharged? Hospital course, mention meds given and route, prescriptions, significant lab abnormalities, going to OR and other pertinent info. @ -This is a 46-year-old female who presents with first-degree burn. Patient given IM Toradol and bacitracin cream. Burn education provided in detail. Patient to follow-up with primary care provider. Undiagnosed new problem with uncertain prognosis? @ -[No] Drug Therapy requiring intensive monitoring for toxicity (Heparin, Nitro, Insulin, Cardizem)? @ -[No] Were any procedures done? @ -[No] Diagnosis/symptom? @ -first degree burn Acute, or Chronic, or Acute on Chronic? @ -acute Uncomplicated (without systemic symptoms) or Complicated (systemic symptoms)? @ -uncomplicated Side effects of treatment? @ -[No] Exacerbation, Progression, or Severe Exacerbation? @ -[No] Poses a threat to life or bodily function? How? (Chest pain, [place], [place], pneumonia, PE, COPD, DKA, ARF, appy, cholecystitis, CVA, Diverticulitis, Homicidal, Suicidal, threat to staff... and all critical care pts) @ -[No] Dr. Alcala is my attending. Disposition Clinical Impression: First degree burn injury Disposition: HOME SELF-CARE Condition: Good Instructions (If sedation given, give patient instructions): Superficial Burn (ED) Additional Instructions: Take and apply medication as directed. Follow up with PCP in 1-2 days. Return to the ED if you experience new, concerning, or worsening symptoms. Prescriptions: Ibuprofen [Motrin] 800 mg PO Q8HR PRN #30 tab PRN Reason: Pain Bacitracin/Polymyx Oint [Polysporin Oint] 1 applic TOPICAL QID #1 dispenser Is patient prescribed a controlled substance at d/c from ED?: No Referrals: Kacey Brennan MD [Primary Care Provider] - 1-2 days Time of Disposition: 23:13
[2022-10-14 23:56] VITALS: BP 123/79; PULSE 78
== END 2022-10-14 23:42 | disposition home or self-care (01) ==
LOC: EC 21:49
DX: T23.141A Burn of first degree of multiple right fingers (nail), including thumb, initial encounter (principal); T31.0 Burns involving less than 10% of body surface; G40.909 Epilepsy, unspecified, not intractable, without status epilepticus; F41.9 Anxiety disorder, unspecified; F32.A Depression, unspecified; Z87.891 Personal history of nicotine dependence; Z88.2 Allergy status to sulfonamides
CPT/HCPCS: 99283; 96372; 16000; J1885

== ENCOUNTER → 2025-04-15 | Outpatient (CLI) | payer MEDICARE ==
--- NOTE | 2025-04-15 14:00 | XR ---
EXAMINATION TYPE: XR lumbosacral spine min 4V DATE OF EXAM: 04/15/2025 1:41 PM INDICATION: Patient age:Female; 49 years old; Reason for study: low back pain; PHH. pain COMPARISON: MRI lumbar spine 08/12/2020, lumbosacral spine radiograph 02/04/2018 TECHNIQUE: Frontal, lateral , bilateral oblique and coned in L5-S1 lateral views of the spine. FINDINGS: There are 6 lumbar type vertebral bodies identified. No evidence of any acute osseous patho logy. No evidence of loss of vertebral body height is seen. There is normal alignment of the lumbar vertebral bodies. No significant disc space narrowing or endplate sclerosis. Right pelvic tubal ligat ion clip identified with possible other clip next to it. IMPRESSION: 1. No acute process. 2. No significant degenerative disc disease. [facility], , 04/15/2025 1:58 PM
== END | disposition home or self-care (01) ==
LOC: RADXRMAIN 13:14
PROVIDERS: ATTEND Internal Medicine
DX: M54.50 Low back pain, unspecified (principal)
CPT/HCPCS: 72110

== ENCOUNTER → 2025-04-26 | Outpatient (CLI) | payer MEDICARE ==
--- NOTE | 2025-04-27 08:26 | MM ---
Reason for Exam: Screening (asymptomatic). Last mammogram was performed 6 year(s) and 1 month(s) ago. Patient History: Menarche at age 16. First Full-Term at age 21. Risk Values: Jodi 5 year model risk: 0.6%. NCI Lifetime model risk: 6.2%. Prior Study Comparison: 03/25/2019 Bilateral Screening Mammogram, [facility]. Tissue Density: The breasts are almost entirely fatty. Findings: Analyzed By CAD. Right breast: There is no suspicious group of microcalcifications or new suspicious mass. Left breast: There is no suspicious group of microcalcifications or new suspicious mass. Overall Assessment: Negative, BI-RAD 1 Management: Screening Mammogram of both breasts in [address] [facility] will attempt to contact patient to return for supplemental views and ultrasound if indicated. Patient should continue monthly self-breast exams. A clinical breast exam by your physician is recommended on an annual basis. This exam should not preclude additional follow-up of suspicious palpable abnormalities. Note on Jodi scores and lifetime risk: 1. A Jodi score greater than 3% is considered moderate risk. If this is the case, consider specialist referral to assess eligibility for a risk reducing agent. 2. If overall lifetime risk for the development of breast cancer is 20% or higher, the patient may qualify for future screening with alternating mammogram and breast MRI. [facility], , 04/27/2025 8:23 AM. Electronically signed and approved by: August Cohen DO
== END | disposition home or self-care (01) ==
LOC: RADMAMWWP 16:01
PROVIDERS: ATTEND Internal Medicine
DX: Z12.31 Encounter for screening mammogram for malignant neoplasm of breast (principal); R92.313 Mammographic fatty tissue density, bilateral breasts
CPT/HCPCS: 77067